=== PATIENT | female | born 1965 | race Caucasian/White ===

== ENCOUNTER 2016-08-29 11:48 | Inpatient (IN) | payer OTHER ==
[~2016-08-29] VITALS: Ht 167.6 cm; Wt 85.0 kg
[~2016-08-29 11:48] MED LIST: CLCC1250 PO; LCTX PO; MCRK20 PO; POTTAB2 PO; VANC5CAP PO; ZLF/100 PO
[2016-08-29] MEDS ORDERED: POTA-65 PO (12:04)
[2016-08-29] MEDS ORDERED: LEVO750T23 PO (12:04)
[2016-08-29] MEDS ORDERED: DOXY100C2 PO (12:04)
[2016-08-29] MEDS ORDERED: METOCLOPRAMIDE HCL INJ 5 MG/ML 2 ML VIAL IV STA (12:08)
[2016-08-29] MEDS ORDERED: KETOROLAC TROMETHAMINE 30 MG/ML VIAL IV STA (12:08)
[2016-08-29] MEDS ORDERED: SODIUM CHLORIDE 0.9% 1000ML 1,000 ML IV STA ×2 (12:08→13:27)
--- NOTE | 2016-08-29 12:11 | EMERGENCY ROOM VISIT NOTE ---
History Report prepared by Puneet: Jessica Murray Under the Supervision of: Dr. Miguel A Remy M.D. First contact with patient: 12:01 Chief Complaint: ILLNESS Stated Complaint: N/V/D, WEAKNESS, History of Present Illness The patient is a 51 year old female who presents to the Emergency Room with complaints of a persistent illness that began several days ago. She currently rates her discomfort as an 8/10 in severity. The patient states that she has been feeling lightheaded and weak. She states that on her way up to the emergency department today she developed chest pain and face tingling. The patient additionally associates nausea, vomiting, and diarrhea with her symptoms today. She states that she was recently started on Doxycycline for pneumonia. The patient states that her diarrhea started after starting the Doxycycline, and states that she has a history of C-diff. She denies any abdominal pain today. Source of History: patient Onset: several days ago Position: other (global) Symptom Intensity: 8/10 Quality: other (illness) Timing: other (persistent) Associated Symptoms: + chest pain, + diarrhea, + nausea, + vomiting, + weakness Note: Associated Symptoms: lightheadedness, face tingling Review of Systems See HPI for pertinent positives & negatives. A total of 10 systems reviewed and were otherwise negative. Past Medical & Surgical Medical Problems: (1) Anxiety (2) Pancreatitis, acute (3) Prolapse of intestine (4) SVT (supraventricular tachycardia) Surgical Problems: (1) H/O: hysterectomy Family History Cancer Diabetes mellitus Hypertension Kidney stones Social History Smoking Status: Never Smoker Alcohol Use: occasionally Drug Use: none Marital Status: Housing Status: lives with family Occupation Status: employed Current/Historical Medications Scheduled Doxycycline Hyclate (Vibramycin), 100 MG PO BID Levofloxacin (Levaquin), 750 MG PO DAILY Potassium Chloride (Potassium Chloride ER), 20 MEQ PO BID Sertraline HCl (Sertraline HCl), 100 MG PO DAILY Allergies Coded Allergies: No Known Allergies (Verified , 08/29/16) Physical Exam Vital Signs Date Time Temp Pulse Resp B/P Pulse Ox O2 Delivery O2 Flow Rate FiO2 08/29/16 13:49 116 18 151/99 96 Room Air 08/29/16 11:51 36.4 135 22 156/118 98 Room Air Physical Exam GENERAL: Patient is a healthy-appearing well-nourished HEAD: Normocephalic atraumatic EYES: Ocular movements intact pupils equal and react to light OROPHARYNX mucous membranes are moist no exudates present no erythema or edema present NECK: Supple no nuchal rigidity CHEST: Good equal expansion LUNGS: Clear and equal to auscultation CARDIAC: Normal S1 and S2 ABDOMEN: Soft nontender no guarding BACK: No CVA tenderness EXTREMITIES: No pain upon palpation normal muscle strength in all groups no clubbing cyanosis or edema NEURO: Patient is following commands is answering questions appropriately. Alert and oriented x3 Cranial Nerves 2-12 grossly intact Medical Decision & Procedures ER Provider Diagnostic Interpretation: ABDOMEN AND PELVIS CT WITH IV CONTRAST CT DOSE: 1570.39 mGy.cm HISTORY: Pancreatitis Pt c/o pancreatitis TECHNIQUE: Multiaxial CT images of the abdomen and pelvis were performed following the use of intravenous contrast. COMPARISON STUDY: 01/30/2016 FINDINGS: Lung bases are clear. Diffuse fatty infiltration of liver. Diffuse edematous change and infiltrative change of the peripancreatic fascial planes. Fluid surrounding components of the stomach. Moderate infiltrative change of the mesentery. Small to moderate amount of free fluid within the paracolic gutter regions. Significant free fluid within the soft tissue pelvic region and cul-de-sac. Bladder is midline. Bowel pattern overall is nonobstructive. Findings of a surgical anastomosis of the sigmoid are again noted. All major vessels appear patent at this time. Kidneys enhance uniformly. No evidence for drainable abscess collection or pseudocyst at the current time. IMPRESSION: 1. Diffuse pancreatitis with considerable peripancreatic infiltrative and free fluid change. 2. Fluid is identified in the perigastric region, paracolic gutter and flank regions, as well as significant fluid within the soft tissue pelvis. 3. Fatty infiltration of liver unchanged. Electronically signed by: Carl Estrella M.D. 08/29/2016 2:[address]AST CT DOSE: HISTORY: Altered mental status. TECHNIQUE: Multiaxial CT images of the head were performed without the use of intravenous contrast. Automated exposure control was utilized for this study. Comparison: None. Findings: The paranasal sinuses and mastoid air cells are clear. The calvarium and skull base are intact. The ventricles and sulci are within normal limits. There is no mass, hematoma, midline shift, or acute infarct. Right posterior scalp swelling. Impression: No acute intracranial abnormality. Right posterior scalp injury. Electronically signed by: Clark Rodriguez M.D. 08/29/2016 2:29 PM CHEST AND ABDOMEN 2 VIEWS HISTORY: Generalized abdominal pain. COMPARISON: Chest 08/27/2016. Abdomen and pelvis CT 01/30/2016. FINDINGS: Suture material seen throughout the pelvis. Mild dilated gas-filled loops of small bowel within the midabdomen. There is also nondistended gas-filled colon. No pneumoperitoneum. No pneumatosis. The chest image of the study is mislabeled. No pneumothorax. No pleural effusions. The heart is normal in size. Questionable 1.4 cm nodular density within the right lower lung zone persists. IMPRESSION: 1. No acute process within the chest. 2. Questionable 1.4 cm nodular density within the right lung base is again noted. This area may be included on the same day abdomen and pelvis CT and should be evaluated at that time. If not, a follow-up nonemergent chest CT is recommended. 3. Mildly distended loops of small bowel within the midabdomen. There is also gas within the colon. Therefore, this favors an ileus. A partial small bowel obstruction could also have a similar appearance. Electronically signed by: Clark Rodriguez M.D. 08/29/2016 2:01 PM Laboratory Results Test 08/29/16 12:55 Direct Bilirubin 0.3 mg/dl (0-0.2) Total Creatine Kinase 157 U/L (26-192) Creatine Kinase MB 3.0 ng/ml (0.5-3.6) Creatine Kinase MB Ratio 1.9 (0-3.0) Troponin I < 0.015 ng/ml (0-0.045) Date/Time Source Procedure Growth Status 08/29/16 12:25 Stool C.difficile Toxin B Gene (PCR) - Final No C. difficile toxin B gene detected Complete Labs reviewed by ED physician. Medications Administered Medications (Trade) Dose Ordered Sig/Betty Route Start Time Stop Time Status Last Admin Dose Admin Sodium Chloride (Nss 1000ml) 1,000 ml @ 999 mls/hr Q1H1M STAT IV 08/29/16 12:08 08/29/16 13:08 DC 08/29/16 12:48 999 MLS/HR Ketorolac Tromethamine (Toradol Inj) 30 mg NOW STAT IV 08/29/16 12:08 08/29/16 12:11 DC 08/29/16 12:47 30 MG Metoclopramide HCl 10 mg 10 mg NOW STAT IV 08/29/16 12:08 08/29/16 12:11 DC 08/29/16 12:47 10 MG Sodium Chloride (Nss 1000ml) 1,000 ml @ 999 mls/hr Q1H1M STAT IV 08/29/16 13:27 08/29/16 14:27 DC 08/29/16 13:41 999 MLS/HR Ondansetron HCl (Zofran Inj) 4 mg NOW STAT IV 08/29/16 13:27 08/29/16 13:28 DC 08/29/16 13:40 4 MG Ondansetron HCl 4 mg 4 mg Q6H PRN IV 08/29/16 14:45 09/28/16 14:44 08/29/16 20:08 4 MG Lactated Ringer's (Lr 1000ml) 1,000 ml @ 125 mls/hr Q8H IV 08/29/16 14:43 08/30/16 08:40 DC 08/30/16 02:02 125 MLS/HR Hydromorphone HCl (Dilaudid Inj) 1 mg Q3H PRN IV 08/29/16 14:45 09/12/16 14:44 08/29/16 20:08 1 MG ECG Indication: nausea, vomiting, weakness Rate (beats per minute): 117 Rhythm: normal sinus Findings: no acute ischemic change, prolonged QT, no ectopy ED Course 1203: Past medical records reviewed. The patient was evaluated in room A10. A complete history and physical examination was performed. 1208: Ordered Reglan Inj 10 mg IV, Toradol Inj 30 mg IV, Sodium Chloride 1000 ml @ 999 mls/hr IV. Medical Decision Differential diagnosis: Etiologies such as appendicitis, diverticulitis, PUD, biliary pathology, UTI, pancreatitis, obstruction, mesenteric ischemia, aortic pathology, infections, inflammatory bowel disease, renal colic, as well as others were entertained. This is a 51-year-old female who presents emergency department complaining of epigastric pain. The patient has a history of pancreatitis. Her lipase was found 5000. She has as an elevation in her white blood count. The patient originally been sent for x-rays of her abdomen chest however when the lipase level came back she was sent for CAT scan of her abdomen. The patient's mother reports that the patient had been drinking alcohol at [place]. Based on these findings I felt that the patient should be admitted to the hospitalist service. She was given a GI cocktail, Pepcid, Carafate. Repeat examination revealed improvement patient's symptoms. Patient and family were in agreement with the treatment plan. Impression Primary Impression: Pancreatitis, acute Scribe Attestation The scribe's documentation has been prepared under my direction and personally reviewed by me in its entirety. I confirm that the note above accurately reflects all work, treatment, procedures, and medical decision making performed by me. Departure Information Dispostion Still a Patient Referrals Gerardo White M.D. (PCP) Patient Instructions A Signature Page, [facility]
[2016-08-29 12:28] LABS: BASO % 0.1 %; BASO ABS # 0.01 K/uL (0-0.2); COMPLETE YES; EOS % 0.1 %; HEMATOCRIT 44.2 % (37-47); IG% 0.2 %; LYMPH % 12.5 %; LYMPH ABS # 1.54 K/uL (1.2-3.4); MEAN CELL VOLUME 95.1 fL (80-100); MEAN CORPUSCULAR HEMOGLOBIN 35.5 pg (25-34); MEAN CORPUSCULAR HGB CONC 37.3 g/dl (32-36); MEAN PLATELET VOLUME 11.3 fL (7.4-10.4); MONO % 6.7 %; NEUT % 80.4 %; PLATELET COUNT 122 K/uL (130-400); RED BLOOD COUNT 4.65 M/uL (4.2-5.4)
[2016-08-29 13:25] LABS: ALT/SGPT 52 U/L (12-78); BLOOD UREA NITROGEN 15 mg/dl (7-18); BUN/CREATININE RATIO 14.9 (10-20); CALCIUM 8.4 mg/dl (8.5-10.1); CARBON DIOXIDE 30 mmol/L (21-32); CHLORIDE 91 mmol/L (98-107); GLUCOSE 120 mg/dl (70-99); POTASSIUM 3.5 mmol/L (3.5-5.1); SODIUM 130 mmol/L (136-145)
[2016-08-29] MEDS ORDERED: ONDANSETRON INJ 2 MG/ML 2 ML VIAL IV STA (13:27)
[2016-08-29 13:30] LABS: ALKALINE PHOSPHATASE 103 U/L (45-117); AST/SGOT 84 U/L (15-37); CKMB/CK RATIO 1.9 (0-3.0)
[2016-08-29] MEDS ORDERED: OPTIRAY 320 IV PRN (14:00)
--- NOTE | 2016-08-29 14:03 | DIAGNOSTIC IMAGING REPORT ---
CHEST AND ABDOMEN 2 VIEWS HISTORY: Generalized abdominal pain. COMPARISON: Chest 08/27/2016. Abdomen and pelvis CT 01/30/2016. FINDINGS: Suture material seen throughout the pelvis. Mild dilated gas-filled loops of small bowel within the midabdomen. There is also nondistended gas-filled colon. No pneumoperitoneum. No pneumatosis. The chest image of the study is mislabeled. No pneumothorax. No pleural effusions. The heart is normal in size. Questionable 1.4 cm nodular density within the right lower lung zone persists. IMPRESSION: 1. No acute process within the chest. 2. Questionable 1.4 cm nodular density within the right lung base is again noted. This area may be included on the same day abdomen and pelvis CT and should be evaluated at that time. If not, a follow-up nonemergent chest CT is recommended. 3. Mildly distended loops of small bowel within the midabdomen. There is also gas within the colon. Therefore, this favors an ileus. A partial small bowel obstruction could also have a similar appearance. Electronically signed by: Clark Rodriguez M.D. 08/29/2016 2:01 PM
--- NOTE | 2016-08-29 14:30 | DIAGNOSTIC IMAGING REPORT ---
HEAD CT NONCONTRAST CT DOSE: HISTORY: Altered mental status. TECHNIQUE: Multiaxial CT images of the head were performed without the use of intravenous contrast. Automated exposure control was utilized for this study. Comparison: None. Findings: The paranasal sinuses and mastoid air cells are clear. The calvarium and skull base are intact. The ventricles and sulci are within normal limits. There is no mass, hematoma, midline shift, or acute infarct. Right posterior scalp swelling. Impression: No acute intracranial abnormality. Right posterior scalp injury. Electronically signed by: Clark Rodriguez M.D. 08/29/2016 2:29 PM
--- NOTE | 2016-08-29 14:30 | DIAGNOSTIC IMAGING REPORT ---
ABDOMEN AND PELVIS CT WITH IV CONTRAST CT DOSE: 1570.39 mGy.cm HISTORY: Pancreatitis Pt c/o pancreatitis TECHNIQUE: Multiaxial CT images of the abdomen and pelvis were performed following the use of intravenous contrast. COMPARISON STUDY: 01/30/2016 FINDINGS: Lung bases are clear. Diffuse fatty infiltration of liver. Diffuse edematous change and infiltrative change of the peripancreatic fascial planes. Fluid surrounding components of the stomach. Moderate infiltrative change of the mesentery. Small to moderate amount of free fluid within the paracolic gutter regions. Significant free fluid within the soft tissue pelvic region and cul-de-sac. Bladder is midline. Bowel pattern overall is nonobstructive. Findings of a surgical anastomosis of the sigmoid are again noted. All major vessels appear patent at this time. Kidneys enhance uniformly. No evidence for drainable abscess collection or pseudocyst at the current time. IMPRESSION: 1. Diffuse pancreatitis with considerable peripancreatic infiltrative and free fluid change. 2. Fluid is identified in the perigastric region, paracolic gutter and flank regions, as well as significant fluid within the soft tissue pelvis. 3. Fatty infiltration of liver unchanged. Electronically signed by: Carl Estrella M.D. 08/29/2016 2:28 PM
[2016-08-29] MEDS ORDERED: HYDROmorphone INJ 1 MG/ML SYR IV PRN ×3 (14:45)
[2016-08-29] MEDS ORDERED: PROMETHAZINE HCL INJ 25 MG in SODIUM CHLORIDE 0.9% 50ML 50 ML IV PRN (14:45)
[2016-08-29] MEDS ORDERED: HydrALAZINE HCL 20 MG/ML VIAL IV PRN (15:15)
[2016-08-29] MEDS ORDERED: HYDROmorphone INJ 0.5 MG/0.5 ML SYR ONE (15:56)
--- NOTE | 2016-08-29 16:13 | HISTORY & PHYSICAL EXAMINATION ---
DATE OF ADMISSION: 08/29/2016 NOTICE TO RECEIVING DEMOCRAT/AGENCY This information is strictly Confidential and protected under [place] law. [place] law prohibits you from making any further disclosure of this information unless further disclosure is expressly permitted by the written consent of the person to whom it pertains or is authorized by law. A general authorization for the release of medical or other information is not sufficient for this purpose. Hospital accepts no responsibility if the information is made available to any other person, INCLUDING THE PATIENT. CHIEF COMPLAINT: Abdominal pain, nausea, vomiting, diarrhea. ADMITTING DIAGNOSIS: Pancreatitis. HISTORY OF PRESENT ILLNESS: Ms. Ramirez is a 51-year-old female who has a history of having had pancreatitis back in December of 2015. She was discharged and then returned shortly thereafter with C. diff. She was treated with oral vancomycin and probiotics. The patient's initial pancreatitis episode was attributed to alcohol abuse. The patient was recently seen her primary care doctor and given doxycycline. She says 1 day after initiating doxycycline therapy, she began having nausea, vomiting, diarrhea, abdominal pain. She was given the doxycycline for pulmonary complaints. The patient tried to take yogurt at home to help with her diarrhea, but none of this resolved her symptoms. Subsequently, she presented to the ER as she said her diarrhea reminded of her C. diff. In the Emergency Department, they were unable to obtain a stool culture; however, she was found to have a lipase of [address] which showed inflammation around the pancreatic head. The patient also had a fall prior to coming in where she struck the back of her head. There is no laceration. Her glasses were broken at that time. PAST MEDICAL HISTORY: Anxiety, SVT, hysterectomy. MEDICATIONS: Zoloft 100 a day, potassium 20 b.i.d. and the doxycycline as mentioned. SOCIAL HISTORY: Socially does not smoke. She abstained from alcohol until and then she drank some alcohol on . FAMILY HISTORY: For cancer, diabetes, hypertension and kidney stones. REVIEW OF SYSTEMS: Ten systems were reviewed and are negative. The diarrhea is at least 6 bowel movements today. It is liquidy, brown, foul smelling. She has had no urinary symptoms of dysuria, hematuria or frequency. Her vomitus was clear mucus material, no bile. No coffee grounds. Ten systems were reviewed and otherwise negative. PHYSICAL EXAMINATION: VITAL SIGNS: 36.4, pulse 116, respiratory rate 18, BP 151/99, O2 sat 96 on room air. HEENT: PERRL, EOMI. She has a 6 cm scalp hematoma to the right of her occiput near the crown of her head. Her sclerae are anicteric. Her oropharynx is dry. NECK: Without lymphadenopathy. Trachea is midline. HEART: Tachycardic, regular, no murmurs. LUNGS: Clear without wheezes or crackles. Good air movement and no focal air loss. No wheezes. ABDOMEN: Normoactive bowel sounds. She has got tenderness to the right upper, left upper and epigastric area. Lower quadrants are unremarkable. EXTREMITIES: Without cyanosis, clubbing or edema. NEUROLOGICALLY: Awake, alert and appropriate. Cranial nerves II-XII are intact. Equal symmetrical strength and sensation in upper and lower extremities. LABORATORY DATA: White count 12.3, H\T\H is 16 and 44, platelet count 122. BUN and creatinine are 15 and 1.0. She is hyponatremic with a sodium of 130. Her lipase is 4222. LFTs otherwise though show a normal total bilirubin, but direct bilirubin is slightly elevated at 0.3, normal being 0.2. Her AST is elevated at 84, ALT 52 and normal, alkaline phosphatase normal. Imaging includes a CT head unremarkable except for scalp injury. CT abdomen and pelvis showing fat marbling of her liver and inflammation around the pancreatic head. There is also a discussion of a 1.4 cm nodular density in the right lung base. Recommend followup. ASSESSMENT: 51-year-old female with pancreatitis, recurrent. Possible antibiotic influenced, alcohol influenced, or recurrence from previous episode. PLAN: For the pancreatitis she will be kept n.p.o., lactated Ringer's, pain and antiemetics, ice chips and meds only. For the possibility of C. diff with her diarrhea, we will check cultures at this time. For hyponatremia will evaluate this tomorrow and if need be, we will check a urine sodium for SIADH random. For depression and anxiety, Zoloft will be maintained with a small sip. For previous uti shows ecoli, will use cipro based on outpt sensitivities DVT prevention is Lovenox The patient is a full code. MTDD
[2016-08-29] MEDS: LACTATED RINGER'S 1000ML 1,000 ML IV SCH ×2 (16:41→20:00)
[2016-08-29 16:43] VITALS: BP 120/83; PULSE 108; TEMP 36.9; O2SAT 96
[2016-08-29 17:00] VITALS: Ht 167.6 cm; Wt 85.0 kg
[2016-08-29 17:13] LABS: INR 1.2 (0.9-1.1); PROTHROMBIN TIME (PATIENT) 12.5 SECONDS (9.0-12.0)
[2016-08-29] MEDS: CIPROFLOXACIN / D5W 400 MG in PREMIXED IN D5W 200 ML IV SCH (20:00)
[2016-08-29] MEDS: ENOXAPARIN 40 MG/0.4 ML SYR SQ SCH (20:00)
[2016-08-29] MEDS: ONDANSETRON INJ 2 MG/ML 2 ML VIAL IV PRN (20:08)
[2016-08-29 23:32] VITALS: BP 120/84; PULSE 101; TEMP 36.4; O2SAT 95
[2016-08-30] VITALS: O2SAT 98
[2016-08-30] MEDS: LACTATED RINGER'S 1000ML 1,000 ML IV SCH (02:02)
[2016-08-30 06:26] LABS: MEAN CELL VOLUME 96.8 fL (80-100); MEAN CORPUSCULAR HEMOGLOBIN 34.5 pg (25-34); MEAN CORPUSCULAR HGB CONC 35.6 g/dl (32-36); RED BLOOD COUNT 4.03 M/uL (4.2-5.4); WHITE BLOOD COUNT 10.57 K/uL (4.8-10.8)
[2016-08-30 06:56] LABS: MEAN PLATELET VOLUME 10.8 fL (7.4-10.4); PLATELET COUNT 98 K/uL (130-400)
[2016-08-30 06:57] LABS: BASO % 0.1 %; BASO ABS # 0.01 K/uL (0-0.2); COMPLETE YES; EOS % 0.3 %; IG% 0.2 %; LYMPH % 12.7 %; LYMPH ABS # 1.34 K/uL (1.2-3.4); MONO % 6.8 %; NEUT % 79.9 %; PLT ESTIMATE DECREASED
[2016-08-30 07:10] LABS: ALB/GLOB RATIO 0.9 (0.9-2); BUN/CREATININE RATIO 16.6 (10-20); CALCIUM 7.7 mg/dl (8.5-10.1); CREATININE 0.58 mg/dl (0.60-1.20); POTASSIUM 2.8 mmol/L (3.5-5.1)
[2016-08-30] MEDS: CIPROFLOXACIN / D5W 400 MG in PREMIXED IN D5W 200 ML IV SCH ×2 (07:37→21:26)
[2016-08-30 08:22] VITALS: BP 133/92; PULSE 112; TEMP 37; O2SAT 96
[2016-08-30] MEDS ORDERED: SERTRALINE HCL 100 MG TAB PO SCH (09:00)
[2016-08-30] MEDS: POTASSIUM CHLORIDE INJ 40 MEQ in SODIUM CHLORIDE 0.9% 1000ML 1,000 ML IV SCH ×2 (10:57→18:09)
--- NOTE | 2016-08-30 11:34 | Progress Note ---
Subjective Date of Service: Aug 30, 2016. Subjective Pt evaluation today including: conversation w/ patient, chart review, review of studies, conversation w/ market consultant Pain: improved. PO Intake: NPO Voiding: no voiding problems seen and examined awake and alert afebrile, no CP or SOB,no Nausea or Vomiting, no more abd pain and but has mild bloating but better than before, NPO except gets sips of water, on IVF , no diarrhea or urinary Sx Seen w the nurse emotional Problem List Medical Problems: (1) Abdominal pain Status: Acute (2) Pancreatitis Status: Acute Review of Systems Constitutional: No chills, No fatigue, No fever, No problem reported, No see HPI, No sweats, No weakness, No weight loss Eyes: No diplopia, No discharge, No eye pain, No problem reported, No redness, No see HPI, No worsening of vision ENT: No dental problems, No hearing loss, No nasal symptoms, No problem reported, No see HPI, No sore throat, No tinnitus, No trouble swallowing, No unusual epistaxis Respiratory: No cough, No dyspnea at rest, No dyspnea on exertion, No hemoptysis, No problem reported, No see HPI, No shortness of breath, No sputum, No wheezing Cardiac: No PND, No chest pain, No claudication, No edema, No orthopnea, No palpitations, No problem reported, No see HPI Abdomen: + problem reported (mild blaoting) Musculoskeletal: No calf pain, No joint pain, No muscle pain, No problem reported, No see HPI, No swelling Female : No abnormal vaginal bleeding, No dysuria, No hematuria, No incontinence, No problem reported, No see HPI, No urinary frequency, No vaginal discharge Neurologic: No balance problems, No memory loss, No numbness/tingling, No paralysis, No problem reported, No see HPI, No vertigo, No weakness Endo: No excessive thirst, No excessive urination, No fatigue, No problem reported, No see HPI Medications Current Inpatient Medications Medications (Trade) Dose Ordered Sig/Betty Route Start Time Stop Time Status Last Admin Dose Admin Ioversol (Optiray 320) 125 ml UD PRN IV 08/29/16 14:00 09/02/16 13:59 Sertraline HCl (Zoloft Tab) 100 mg DAILY PO 08/30/16 09:00 09/29/16 08:59 08/30/16 07:37 100 MG Enoxaparin Sodium (Lovenox Inj) 40 mg QPM SQ 08/29/16 21:00 09/28/16 20:59 08/29/16 20:00 40 MG Ondansetron HCl 4 mg 4 mg Q6H PRN IV 08/29/16 14:45 09/28/16 14:44 08/29/16 20:08 4 MG Promethazine HCl/ Sodium Chloride (Phenergan Inj/ Nss 50ml) 51 ml @ 200 mls/hr Q6H PRN IV 08/29/16 14:45 09/28/16 14:44 Hydromorphone HCl (Dilaudid Inj) 0.25 mg Q3H PRN IV 08/29/16 14:45 09/12/16 14:44 Hydromorphone HCl (Dilaudid Inj) 0.5 mg Q3H PRN IV 08/29/16 14:45 09/12/16 14:44 Hydromorphone HCl (Dilaudid Inj) 1 mg Q3H PRN IV 08/29/16 14:45 09/12/16 14:44 08/29/16 20:08 1 MG Hydralazine HCl 10 mg 10 mg Q4H PRN IV 08/29/16 15:15 09/28/16 15:14 Ciprofloxacin/ Dextrose 400 mg/ Prmx 200 ml @ 100 mls/hr Q12 IV 08/29/16 21:00 09/08/16 20:59 08/30/16 07:37 100 MLS/HR Potassium Chloride/Sodium Chloride (KCl Inj/Nss 1000ml) 1,020 ml @ 125 mls/hr Q8H10M IV 08/30/16 09:15 09/29/16 08:44 08/30/16 10:57 125 MLS/HR Objective Vital Signs Date Time Temp Pulse Resp B/P Pulse Ox O2 Delivery O2 Flow Rate FiO2 08/30/16 08:22 37.0 112 20 133/92 96 Room Air 08/30/16 07:27 Room Air 08/30/16 00:00 98 Room Air 08/29/16 23:32 36.4 101 16 120/84 95 Room Air 08/29/16 20:00 Room Air 08/29/16 17:00 Room Air 08/29/16 16:43 36.9 108 18 120/83 96 Room Air 08/29/16 15:59 102 20 143/93 98 Room Air 08/29/16 13:49 116 18 151/99 96 Room Air 08/29/16 11:51 36.4 135 22 156/118 98 Room Air Physical Exam General Appearance: no apparent distress, + obese Eyes: normal inspection ENT: normal ENT inspection, hearing grossly normal Neck: supple, no JVD, no carotid bruits, trachea midline Respiratory/Chest: chest non-tender, lungs clear, normal breath sounds, no respiratory distress, no accessory muscle use Cardiovascular: regular rate, rhythm, no edema, no gallop, no JVD, no murmur Abdomen: normal bowel sounds, non tender, soft, no organomegaly Extremities: normal range of motion, non-tender, normal inspection, no pedal edema Neurologic/Psychiatric: director automotive II-XII nml as tested, no motor/sensory deficits, alert, normal mood/affect, oriented x 3 Skin: normal color, warm/dry Laboratory Results Last 24 Hours Test 08/29/16 12:08 08/29/16 12:13 08/29/16 12:55 08/29/16 16:57 Creatine Kinase MB Ratio 1.9 White Blood Count 12.30 K/uL Red Blood Count 4.65 M/uL Hemoglobin 16.5 g/dL Hematocrit 44.2 % Mean Corpuscular Volume 95.1 fL Mean Corpuscular Hemoglobin 35.5 pg Mean Corpuscular Hemoglobin Concent 37.3 g/dl Platelet Count 122 K/uL Mean Platelet Volume 11.3 fL Neutrophils (%) (Auto) 80.4 % Lymphocytes (%) (Auto) 12.5 % Monocytes (%) (Auto) 6.7 % Eosinophils (%) (Auto) 0.1 % Basophils (%) (Auto) 0.1 % Neutrophils # (Auto) 9.89 K/uL Lymphocytes # (Auto) 1.54 K/uL Monocytes # (Auto) 0.82 K/uL Eosinophils # (Auto) 0.01 K/uL Basophils # (Auto) 0.01 K/uL RDW Standard Deviation 45.6 fL RDW Coefficient of Variation 13.3 % Immature Granulocyte % (Auto) 0.2 % Immature Granulocyte # (Auto) 0.03 K/uL Sodium Level 130 mmol/L Potassium Level 3.5 mmol/L Chloride Level 91 mmol/L Carbon Dioxide Level 30 mmol/L Anion Gap 9.0 mmol/L Blood Urea Nitrogen 15 mg/dl Creatinine 1.00 mg/dl Est Creatinine Clear Calc Drug Dose 74.7 ml/min Estimated GFR () 76.6 Estimated GFR (Non- 66.1 BUN/Creatinine Ratio 14.9 Random Glucose 120 mg/dl Calcium Level 8.4 mg/dl Total Bilirubin 0.9 mg/dl Direct Bilirubin 0.3 mg/dl Aspartate Amino Transf (AST/SGOT) 84 U/L Alanine Aminotransferase (ALT/SGPT) 52 U/L Alkaline Phosphatase 103 U/L Total Creatine Kinase 157 U/L Creatine Kinase MB 3.0 ng/ml Troponin I < 0.015 ng/ml Total Protein 6.5 gm/dl Albumin 3.1 gm/dl Lipase 4222 U/L Prothrombin Time 12.5 SECONDS Prothromb Time International Ratio 1.2 Activated Partial Thromboplast Time 26.1 SECONDS Partial Thromboplastin Ratio 1.0 Test 08/30/16 06:10 White Blood Count 10.57 K/uL Red Blood Count 4.03 M/uL Hemoglobin 13.9 g/dL Hematocrit 39.0 % Mean Corpuscular Volume 96.8 fL Mean Corpuscular Hemoglobin 34.5 pg Mean Corpuscular Hemoglobin Concent 35.6 g/dl Platelet Count 98 K/uL Mean Platelet Volume 10.8 fL Neutrophils (%) (Auto) 79.9 % Lymphocytes (%) (Auto) 12.7 % Monocytes (%) (Auto) 6.8 % Eosinophils (%) (Auto) 0.3 % Basophils (%) (Auto) 0.1 % Neutrophils # (Auto) 8.45 K/uL Lymphocytes # (Auto) 1.34 K/uL Monocytes # (Auto) 0.72 K/uL Eosinophils # (Auto) 0.03 K/uL Basophils # (Auto) 0.01 K/uL RDW Standard Deviation 47.7 fL RDW Coefficient of Variation 13.6 % Immature Granulocyte % (Auto) 0.2 % Immature Granulocyte # (Auto) 0.02 K/uL Platelet Estimate DECREASED Sodium Level 134 mmol/L Potassium Level 2.8 mmol/L Chloride Level 95 mmol/L Carbon Dioxide Level 26 mmol/L Anion Gap 13.0 mmol/L Blood Urea Nitrogen 10 mg/dl Creatinine 0.58 mg/dl Est Creatinine Clear Calc Drug Dose 128.8 ml/min Estimated GFR () 125.4 Estimated GFR (Non- 108.2 BUN/Creatinine Ratio 16.6 Random Glucose 75 mg/dl Calcium Level 7.7 mg/dl Total Bilirubin 0.8 mg/dl Aspartate Amino Transf (AST/SGOT) 64 U/L Alanine Aminotransferase (ALT/SGPT) 40 U/L Alkaline Phosphatase 90 U/L Total Protein 6.3 gm/dl Albumin 2.9 gm/dl Globulin 3.4 gm/dl Albumin/Globulin Ratio 0.9 Lipase 2046 U/L Assessment and Plan Acute Pancreatitis poss Alcohol related , a binge drinking, not drinking much , . drunk some day before and nothing since then and nothing prior to that since December. start Liquid idet pain meds IVF advised not going back to alcohol recheck labs Hypokalemia Change fluid to NS w K and recheck Diarrhea , resolved poss sec to pancreatitis, C diff ruled out add Probiotics UTI, OP urine culture grew E coli on 08/27 IV Cipro Hyponatremia, improving IVF H/O Pancreatitis in the past sec to Alcohol Alcohol abuse, none since december but had Binge drink around , monitor for alc withdrawal but she had none for 5-6 days H/O C Diff Mood issues, decline psych consult and she wants to talk to SS, regarding OP work up plan as above get SS OMAIRA arriaga and the nurse poss DC in 1-2 days
[2016-08-30] MEDS: SACCHAROMYCES BOUL (FLORASTOR) 250 MG CAP PO SCH (12:36)
[2016-08-30] MEDS ORDERED: GABAPENTIN 800 MG TAB PO SCH (14:00)
[2016-08-30] MEDS ORDERED: THIAMINE HCL 100 MG TAB PO ONE (14:05)
--- NOTE | 2016-08-30 14:07 | Psych Management Progress Note ---
Psychiatry Miscellaneous Date of Service: Aug 30, 2016. I personally participated in the medical decision making outlined in consultation by KESHA Donato. Patient minimizing ETOH use upon admission and will need withdrawal protocol. Currently amenable to rehab recs.
[2016-08-30] MEDS ORDERED: GABAPENTIN 800MG LOADING DOSE PO SCH (14:15)
[2016-08-30 15:30] VITALS: BP 131/91; PULSE 63; TEMP 36.9; O2SAT 95
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
[2016-08-30] MEDS: GABAPENTIN 400MG Q6H DOSE PO SCH (20:00)
[2016-08-30] MEDS: ENOXAPARIN 40 MG/0.4 ML SYR SQ SCH (21:26)
[2016-08-31 00:18] VITALS: BP 149/92; PULSE 103; TEMP 36.8; O2SAT 96
[2016-08-31] MEDS: POTASSIUM CHLORIDE INJ 40 MEQ in SODIUM CHLORIDE 0.9% 1000ML 1,000 ML IV SCH ×4 (02:59→23:27)
[2016-08-31] MEDS: ONDANSETRON INJ 2 MG/ML 2 ML VIAL IV PRN (03:03)
[2016-08-31 03:34] LABS: URINE APPEARANCE CLEAR (CLEAR); URINE BILIRUBIN NEG (NEG); URINE COLOR YELLOW; URINE EPITHELIAL CELL AUTO 20-30 /lpf (0-5); URINE NITRITE NEG (NEG); URINE SPECIFIC GRAVITY 1.005 (1.000-1.030); UROBILINOGEN NEG (NEG); ZZUR CULT IF INDIC CLEAN CATCH NO
[2016-08-31 03:40] LABS: MANUAL MICROSCOPIC REQUIRED? NO; REVIEW REQ? NO
[2016-08-31] MEDS: GABAPENTIN 400MG Q6H DOSE PO SCH (05:33)
[2016-08-31 07:40] VITALS: BP 141/88; PULSE 93; TEMP 36.6; O2SAT 91
[2016-08-31 08:00] VITALS: O2SAT 92
[2016-08-31] MEDS: SERTRALINE HCL 50 MG TAB PO SCH (08:12)
[2016-08-31] MEDS: THIAMINE HCL 100 MG TAB PO SCH (08:12)
[2016-08-31] MEDS: SACCHAROMYCES BOUL (FLORASTOR) 250 MG CAP PO SCH (08:13)
[2016-08-31 08:27] LABS: BASO % 0.1 %; BASO ABS # 0.01 K/uL (0-0.2); COMPLETE YES; EOS % 0.2 %; HEMATOCRIT 33.1 % (37-47); IG% 0.1 %; LYMPH ABS # 1.19 K/uL (1.2-3.4); MEAN CELL VOLUME 97.4 fL (80-100); MEAN CORPUSCULAR HEMOGLOBIN 33.8 pg (25-34); MEAN CORPUSCULAR HGB CONC 34.7 g/dl (32-36); MONO % 9.4 %; NEUT % 77.2 %; PLATELET COUNT 101 K/uL (130-400); WHITE BLOOD COUNT 9.15 K/uL (4.8-10.8)
[2016-08-31] MEDS: CIPROFLOXACIN / D5W 400 MG in PREMIXED IN D5W 200 ML IV SCH ×2 (08:45→12:48)
[2016-08-31 09:06] LABS: BUN/CREATININE RATIO 13.3 (10-20); CALCIUM 7.4 mg/dl (8.5-10.1); CREATININE 0.54 mg/dl (0.60-1.20); MAGNESIUM 1.3 mg/dl (1.8-2.4); POTASSIUM 2.9 mmol/L (3.5-5.1)
[2016-08-31 09:09] LABS: ALB/GLOB RATIO 0.8 (0.9-2); PHOSPHORUS 1.8 mg/dl (2.5-4.9)
[2016-08-31] MEDS: MAGNESIUM SULFATE 1GM / D5W 1 GM in PREMIXED IN D5W 100 ML IV SCH ×2 (11:21→12:50)
[2016-08-31] MEDS: POT PHOSPHATE MONOBASIC W/ SOD TAB PO SCH ×3 (13:38→20:32)
[2016-08-31] MEDS: GABAPENTIN 400MG Q8H DOSE PO SCH ×2 (13:38→20:31)
--- NOTE | 2016-08-31 14:53 | Progress Note ---
Subjective Date of Service: Aug 31, 2016. 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 still has diarrhea but less than before Problem List Medical Problems: (1) Abdominal pain Status: Acute (2) Pancreatitis Status: Acute Review of Systems Constitutional: No chills, No fatigue, No fever, No problem reported, No see HPI, No sweats, No weakness, No weight loss Eyes: No diplopia, No discharge, No eye pain, No problem reported, No redness, No see HPI, No worsening of vision ENT: No dental problems, No hearing loss, No nasal symptoms, No problem reported, No see HPI, No sore throat, No tinnitus, No trouble swallowing, No unusual epistaxis Respiratory: No cough, No dyspnea at rest, No dyspnea on exertion, No hemoptysis, No problem reported, No see HPI, No shortness of breath, No sputum, No wheezing Cardiac: No PND, No chest pain, No claudication, No edema, No orthopnea, No palpitations, No problem reported, No see HPI Abdomen: No GI bleeding, No constipation, No diarrhea, No nausea, No pain, No problem reported, No see HPI, No vomiting Musculoskeletal: No calf pain, No joint pain, No muscle pain, No problem reported, No see HPI, No swelling Female : No abnormal vaginal bleeding, No dysuria, No hematuria, No incontinence, No problem reported, No see HPI, No urinary frequency, No vaginal discharge Neurologic: No balance problems, No memory loss, No numbness/tingling, No paralysis, No problem reported, No see HPI, No vertigo, No weakness Psychiatric: No anhedonism, No anxiety, No depression symptoms, No insomnia, No problem reported, No see HPI, No substance abuse Heme: No abnormal bleeding/bruising, No clotting problems, No night sweats, No problem reported, No see HPI, No swollen lymph nodes Objective Vital Signs Date Time Temp Pulse Resp B/P Pulse Ox O2 Delivery O2 Flow Rate FiO2 08/31/16 08:00 92 Room Air 08/31/16 07:40 36.6 93 18 141/88 91 08/31/16 00:18 36.8 103 18 149/92 96 Room Air 08/31/16 00:05 Room Air 08/30/16 16:00 Room Air 08/30/16 15:30 36.9 63 16 131/91 95 Room Air Physical Exam General Appearance: no apparent distress, + obese Eyes: normal inspection ENT: normal ENT inspection, hearing grossly normal, pharynx normal Neck: supple, no JVD, no carotid bruits, trachea midline Respiratory/Chest: chest non-tender, lungs clear, normal breath sounds, no respiratory distress, no accessory muscle use Cardiovascular: regular rate, rhythm, no edema, no gallop, no JVD, no murmur Abdomen: normal bowel sounds, non tender, soft, no organomegaly, no pulsatile mass Extremities: normal range of motion, non-tender, normal inspection, no pedal edema, normal capillary refill Neurologic/Psychiatric: no motor/sensory deficits, alert, normal mood/affect, oriented x 3 Skin: normal color Laboratory Results Last 24 Hours Test 08/30/16 17:08 08/31/16 03:05 08/31/16 07:23 Potassium Level 3.0 mmol/L 2.9 mmol/L Urine Color YELLOW Urine Appearance CLEAR Urine pH 7.0 Urine Specific [place] 1.005 Urine Protein NEG Urine Glucose (UA) NEG Urine Ketones NEG Urine Occult Blood NEG Urine Nitrite NEG Urine Bilirubin NEG Urine Urobilinogen NEG Urine Leukocyte Esterase TRACE Urine WBC (Auto) 1-5 /hpf Urine RBC (Auto) 0-4 /hpf Urine Hyaline Casts (Auto) 0 /lpf Urine Epithelial Cells (Auto) 20-30 /lpf Urine Bacteria (Auto) NEG White Blood Count 9.15 K/uL Red Blood Count 3.40 M/uL Hemoglobin 11.5 g/dL Hematocrit 33.1 % Mean Corpuscular Volume 97.4 fL Mean Corpuscular Hemoglobin 33.8 pg Mean Corpuscular Hemoglobin Concent 34.7 g/dl Platelet Count 101 K/uL Mean Platelet Volume 11.0 fL Neutrophils (%) (Auto) 77.2 % Lymphocytes (%) (Auto) 13.0 % Monocytes (%) (Auto) 9.4 % Eosinophils (%) (Auto) 0.2 % Basophils (%) (Auto) 0.1 % Neutrophils # (Auto) 7.06 K/uL Lymphocytes # (Auto) 1.19 K/uL Monocytes # (Auto) 0.86 K/uL Eosinophils # (Auto) 0.02 K/uL Basophils # (Auto) 0.01 K/uL RDW Standard Deviation 47.9 fL RDW Coefficient of Variation 13.7 % Immature Granulocyte % (Auto) 0.1 % Immature Granulocyte # (Auto) 0.01 K/uL Sodium Level 134 mmol/L Chloride Level 99 mmol/L Carbon Dioxide Level 23 mmol/L Anion Gap 12.0 mmol/L Blood Urea Nitrogen 7 mg/dl Creatinine 0.54 mg/dl Est Creatinine Clear Calc Drug Dose 138.4 ml/min Estimated GFR () 128.4 Estimated GFR (Non- 110.8 BUN/Creatinine Ratio 13.3 Random Glucose 72 mg/dl Calcium Level 7.4 mg/dl Phosphorus Level 1.8 mg/dl Magnesium Level 1.3 mg/dl Total Bilirubin 0.7 mg/dl Aspartate Amino Transf (AST/SGOT) 58 U/L Alanine Aminotransferase (ALT/SGPT) 38 U/L Alkaline Phosphatase 88 U/L Total Protein 6.2 gm/dl Albumin 2.8 gm/dl Globulin 3.4 gm/dl Albumin/Globulin Ratio 0.8 Lipase 691 U/L Assessment and Plan Acute Pancreatitis poss Alcohol related , a binge drinking, not drinking much , . drunk some day before and nothing since then and nothing prior to that since December. advance diet to low cholesterol pain meds keep fluid w K for now advised not going back to alcohol recheck labs Alcohol abuse, none since december but had Binge drink around , monitor for alc withdrawal but she had none for 5-6 days alcohol withdrawal protocol psych input appreciated Mood disorder psych on board Zoloft increased Hypokalemia, hypomagnesia and hypophosphatemia replace lytes and recheck Diarrhea , resolved poss sec to pancreatitis, C diff ruled out add Probiotics UTI, OP urine culture grew E coli on 08/27 IV Cipro for now , once diarrhea resolved can be change to PO Hyponatremia, improving IVF H/O Pancreatitis in the past sec to Alcohol H/O C Diff Mood issues, decline psych consult and she wants to talk to SS, regarding OP work up plan as above SS OMAIRA pat and the nurse poss DC in 1-2 days
[2016-08-31 16:04] VITALS: BP 126/84; PULSE 87; TEMP 36.8; O2SAT 100
[2016-08-31] MEDS: ENOXAPARIN 40 MG/0.4 ML SYR SQ SCH (20:31)
[2016-08-31] MEDS: MAGNESIUM OXIDE 400 MG TAB PO SCH (20:31)
[2016-08-31 23:28] VITALS: BP 111/74; PULSE 97; TEMP 36.7; O2SAT 93
[2016-09-01] MEDS: GABAPENTIN 400MG Q8H DOSE PO SCH (06:02)
[2016-09-01] MEDS: SERTRALINE HCL 50 MG TAB PO SCH (07:23)
[2016-09-01] MEDS: MAGNESIUM OXIDE 400 MG TAB PO SCH ×2 (07:23→17:46)
[2016-09-01] MEDS: SACCHAROMYCES BOUL (FLORASTOR) 250 MG CAP PO SCH (07:23)
[2016-09-01] MEDS: THIAMINE HCL 100 MG TAB PO SCH (07:23)
[2016-09-01] MEDS: POT PHOSPHATE MONOBASIC W/ SOD TAB PO SCH ×2 (07:24→12:27)
[2016-09-01] MEDS: CIPROFLOXACIN / D5W 400 MG in PREMIXED IN D5W 200 ML IV SCH (07:24)
[2016-09-01] MEDS: POTASSIUM CHLORIDE INJ 40 MEQ in SODIUM CHLORIDE 0.9% 1000ML 1,000 ML IV SCH (07:24)
[2016-09-01 08:00] VITALS: BP 128/87; PULSE 83; TEMP 36.5; O2SAT 97
[2016-09-01 08:32] LABS: BUN/CREATININE RATIO 4.9 (10-20); CALCIUM 7.2 mg/dl (8.5-10.1); CREATININE 0.35 mg/dl (0.60-1.20); MAGNESIUM 1.9 mg/dl (1.8-2.4); POTASSIUM 3.5 mmol/L (3.5-5.1)
[2016-09-01 08:49] LABS: PHOSPHORUS 1.4 mg/dl (2.5-4.9)
[2016-09-01 15:27] VITALS: BP 124/78; PULSE 81; TEMP 36.8; O2SAT 95
[2016-09-01] MEDS ORDERED: THM100 PO (17:39)
[2016-09-01] MEDS ORDERED: MULT-589 PO (17:39)
[2016-09-01] MEDS ORDERED: NRN400 PO (17:39)
[2016-09-01] MEDS ORDERED: ZLF/100 PO (17:39)
[2016-09-01 17:44] VITALS: BP 124/78; PULSE 81; TEMP 36.8; O2SAT 95
--- NOTE | 2016-09-01 17:45 | Discharge Instructions ---
Discharge Instructions Admission Reason for Admission: Pancreatitis, Acute Discharge Discharge Diagnosis / Problem: Acute pancreatitis Discharge Goals Goal(s): Improve disease control, Therapeutic intervention Activity Recommendations Activity Limitations: resume your previous activity . Instructions / Follow-Up Instructions / Follow-Up You were admitted for acute pancreatitis caused by excessive alcohol intake. You do have some lab abnormalities that should be followed up as an outpatient. Please see Dr. White within 1 week after discharge. Please refrain from drinking any more alcohol. Our Nurse Navigator Perla Norman should be reaching out to you this week to give you more information on intensive outpatient programs for depression and alcohol rehabilitation. Incidentally your chest xray showed a possible small nodule in your right lung that was not seen on the CT scan, however you should ask Dr. White to order you a CT scan of the chest to look at your lungs in more detail. Current Hospital Diet Patient's current hospital diet: Low Fat Diet Discharge Diet Recommended Diet: Low Fat Diet Procedures Procedures Performed: CT abdomen/pelvis Chest and abomen xray Head CT Pending Studies Studies pending at discharge: no Laboratory Results Lipid Panel Test 08/27/16 10:53 Range/Units Triglycerides Level 168 H 0-150 mg/dl Cholesterol Level 161 0-200 mg/dl HDL Cholesterol 100 mg/dl Cholesterol/HDL Ratio 1.6 LDL Cholesterol, Calculated 27 mg/dl Medical Emergencies . Who to Call and When: Medical Emergencies: If at any time you feel your situation is an emergency, please call 911 immediately. . Non-Emergent Contact Non-Emergency issues call your: Primary Care Provider Call Non-Emergent contact if: your pain is not controlled, your pain is worsening, your pain is unusual for you, your pain is concerning you, you have any medication questions . . "Provider Documentation" section prepared by Lexi Hall. VTE Core Measure Inpt VTE Proph given/why not?: Enoxaparin (Lovenox)SQ
[2016-09-01] MEDS ORDERED: GABAPENTIN 400MG Q12H DOSE PO SCH (18:00)
--- NOTE | 2016-09-01 23:02 | Discharge Summary ---
Discharge Summary Admission Date: Aug 29, 2016 at 14:46 Discharge Date: Sep 01, 2016 Discharge Disposition: Home Principal Diagnosis: Acute pancreatitis Problems/Secondary Diagnoses: Alcohol abuse/dependence Depression with anxiety Hypokalemia Hypomagnesia Hypophosphatemia Diarrhea UTI Hyponatremia Lung nodule Procedures: ABDOMEN AND PELVIS CT WITH IV CONTRAST CT DOSE: 1570.39 mGy.cm HISTORY: Pancreatitis Pt c/o pancreatitis TECHNIQUE: Multiaxial CT images of the abdomen and pelvis were performed following the use of intravenous contrast. COMPARISON STUDY: 01/30/2016 FINDINGS: Lung bases are clear. Diffuse fatty infiltration of liver. Diffuse edematous change and infiltrative change of the peripancreatic fascial planes. Fluid surrounding components of the stomach. Moderate infiltrative change of the mesentery. Small to moderate amount of free fluid within the paracolic gutter regions. Significant free fluid within the soft tissue pelvic region and cul-de-sac. Bladder is midline. Bowel pattern overall is nonobstructive. Findings of a surgical anastomosis of the sigmoid are again noted. All major vessels appear patent at this time. Kidneys enhance uniformly. No evidence for drainable abscess collection or pseudocyst at the current time. IMPRESSION: 1. Diffuse pancreatitis with considerable peripancreatic infiltrative and free fluid change. 2. Fluid is identified in the perigastric region, paracolic gutter and flank regions, as well as significant fluid within the soft tissue pelvis. 3. Fatty infiltration of liver unchanged. CHEST AND ABDOMEN 2 VIEWS HISTORY: Generalized abdominal pain. COMPARISON: Chest 08/27/2016. Abdomen and pelvis CT 01/30/2016. FINDINGS: Suture material seen throughout the pelvis. Mild dilated gas-filled loops of small bowel within the midabdomen. There is also nondistended gas-filled colon. No pneumoperitoneum. No pneumatosis. The chest image of the study is mislabeled. No pneumothorax. No pleural effusions. The heart is normal in size. Questionable 1.4 cm nodular density within the right lower lung zone persists. IMPRESSION: 1. No acute process within the chest. 2. Questionable 1.4 cm nodular density within the right lung base is again noted. This area may be included on the same day abdomen and pelvis CT and should be evaluated at that time. If not, a follow-up nonemergent chest CT is recommended. 3. Mildly distended loops of small bowel within the midabdomen. There is also gas within the colon. Therefore, this favors an ileus. A partial small bowel obstruction could also have a similar appearance. HEAD CT NONCONTRAST CT DOSE: HISTORY: Altered mental status. TECHNIQUE: Multiaxial CT images of the head were performed without the use of intravenous contrast. Automated exposure control was utilized for this study. Comparison: None. Findings: The paranasal sinuses and mastoid air cells are clear. The calvarium and skull base are intact. The ventricles and sulci are within normal limits. There is no mass, hematoma, midline shift, or acute infarct. Right posterior scalp swelling. Impression: No acute intracranial abnormality. Right posterior scalp injury. Consultations: Psychiatry Medication Reconciliation New Medications: Multivitamins (Daily [place]) 1 Tab Tab 1 TAB PO DAILY, #30 TAB Gabapentin (Gabapentin) 400 Mg Cap 400 MG PO Q12H for 2 Days, #3 CAP take 400mg po bid x 1 day then 400mg po daily x 1 day then stop Thiamine HCl (Vitamin B-1) 100 Mg Tab 100 MG PO DAILY for 30 Days, #30 TAB Changed Medications: Sertraline HCl (Sertraline HCl) 100 Mg Tab 150 MG PO DAILY, #45 TAB (Changed from: 100 MG; 30) Continued Medications: Potassium Chloride (Potassium Chloride ER) 20 Meq Tab 20 MEQ PO BID, #60 Discontinued Medications: Doxycycline Hyclate (Vibramycin) 100 Mg Cap 100 MG PO BID, #14 Levofloxacin (Levaquin) 750 Mg Tab 750 MG PO DAILY, #5 Referrals At Discharge Follow up Referrals: Family Practice Referral - Within 1 Week with Gerardo White M.D. Discharge Exam Review of Systems: Constitutional: No fever Eyes: No problem reported ENT: No problem reported Respiratory: No shortness of breath Cardiovascular: No chest pain Abdomen: No constipation, No diarrhea, No nausea, No pain, No vomiting Musculoskeletal: No problem reported Genitourinary - Female: No problem reported Neurologic: No problem reported Psychiatric: + anxiety, + depression symptoms, + substance abuse Endocrine: No problem reported Hematologic / Lymphatic: No problem reported Integumentary: No problem reported Physical Exam: General Appearance: WD/WN, no apparent distress Eyes: normal inspection, sclerae normal ENT: hearing grossly normal, pharynx normal Neck: trachea midline Respiratory/Chest: lungs clear, normal breath sounds, no respiratory distress, no accessory muscle use Cardiovascular: regular rate, rhythm, no edema, no gallop, no JVD, no murmur , normal peripheral pulses Abdomen / GI: normal bowel sounds, non tender, soft, no organomegaly, no pulsatile mass Extremities: normal inspection, no calf tenderness, no pedal edema, normal range of motion Neurologic/Psychiatric: alert, normal mood/affect, oriented x 3 Skin: normal color, warm/dry, no rash Hospital Course Ms. Ramirez is a 51-year-old female who has a history of having had pancreatitis back in December of 2015. She was discharged and then returned shortly thereafter with C. diff. She was treated with oral vancomycin and probiotics. The patient's initial pancreatitis episode was attributed to alcohol abuse. The patient was recently seen her primary care doctor and given doxycycline. She says 1 day after initiating doxycycline therapy, she began having nausea, vomiting, diarrhea, abdominal pain. She was given the doxycycline for pulmonary complaints. The patient tried to take yogurt at home to help with her diarrhea, but none of this resolved her symptoms. Subsequently, she presented to the ER as she said her diarrhea reminded of her C. diff. In the Emergency Department, they were unable to obtain a stool culture; however, she was found to have a lipase of [address] which showed inflammation around the pancreatic head. The patient also had a fall prior to coming in where she struck the back of her head. There is no laceration. Her glasses were broken at that time. She was admitted, given IVFs, made NPO and then advanced diet slowly as tolerated. She was seen by Psychiatry who advised alcohol rehabilitative services and she accepted-this will get assistance with this from our Nurse Navigator after the holiday to get IOP. Psych also increased her Zoloft to 150mg and said could go up even higher. Her informed me that he locked up all the EtOH in the house at patient' s request. Her lipase improved, her abd pain improved and she was well enough for discharge to home on hospital day #3. Diarrhea , resolved poss sec to pancreatitis, C diff ruled out added Probiotics UTI, OP urine culture grew E coli on 08/27 IV Cipro for 3 days then stopped Total Time Spent: Greater than 30 minutes This includes examination of the patient, discharge planning, medication reconciliation, and communication with other providers. Discharge Instructions Please refer to the electronic Patient Visit Report (Discharge Instructions) for additional information. Follow-Up With PCP within 1 week Additional Copies To Gerardo White M.D.
[2016-09-03] MEDS ORDERED: GABAPENTIN 400MG X1 DOSE PO SCH (06:00)
== END 2016-09-01 18:01 | disposition home or self-care (01) | DRG 439 ==
LOC: ENRESERVDT → ENRESERVTM → C.EDB 11:49 → C.MS2W 14:46
PROVIDERS: ADMIT Internal Medicine; ATTEND Internal Medicine
DX: K85.20 Alcohol induced acute pancreatitis without necrosis or infection (principal); N39.0 Urinary tract infection, site not specified; E87.1 Hypo-osmolality and hyponatremia; F32.1 Major depressive disorder, single episode, moderate; F10.239 Alcohol dependence with withdrawal, unspecified; R19.7 Diarrhea, unspecified; B96.20 Unspecified Escherichia coli [E. coli] as the cause of diseases classified elsewhere; E87.6 Hypokalemia; E83.39 Other disorders of phosphorus metabolism; E83.42 Hypomagnesemia; F41.1 Generalized anxiety disorder; F41.8 Other specified anxiety disorders; Z91.5 Personal history of self-harm; Z91.81 History of falling; Z91.410 Personal history of adult physical and sexual abuse; Z91.411 Personal history of adult psychological abuse; Z81.8 Family history of other mental and behavioral disorders; Z83.3 Family history of diabetes mellitus; Z84.1 Family history of disorders of kidney and ureter; Z82.49 Family history of ischemic heart disease and other diseases of the circulatory system; Z79.899 Other long term (current) drug therapy

== ENCOUNTER → 2016-10-03 | Outpatient (CLI) | payer OTHER ==
[~2016-10-03] MED LIST changes: -CLCC1250 PO; -LCTX PO; -MCRK20 PO; +MULT-589 PO; +NRN400 PO; +POTA-65 PO; -POTTAB2 PO; +THM100 PO; -VANC5CAP PO
[2016-10-03 12:19] LABS: BASO % 0.1 %; BASO ABS # 0.01 K/uL (0-0.2); COMPLETE YES; EOS % 2.4 %; HEMATOCRIT 38.5 % (37-47); IG% 0.3 %; LYMPH % 28.7 %; LYMPH ABS # 2.04 K/uL (1.2-3.4); MEAN CELL VOLUME 99.2 fL (80-100); MEAN CORPUSCULAR HGB CONC 33.2 g/dl (32-36); MEAN PLATELET VOLUME 10.7 fL (7.4-10.4); MONO % 5.2 %; NEUT % 63.3 %; PLATELET COUNT 198 K/uL (130-400); RED BLOOD COUNT 3.88 M/uL (4.2-5.4)
[2016-10-03 12:28] LABS: ALT/SGPT 18 U/L (12-78); BLOOD UREA NITROGEN 10 mg/dl (7-18); BUN/CREATININE RATIO 16.6 (10-20); CALCIUM 9.1 mg/dl (8.5-10.1); CARBON DIOXIDE 24 mmol/L (21-32); CHLORIDE 105 mmol/L (98-107); CREATININE 0.61 mg/dl (0.60-1.20); GLUCOSE 87 mg/dl (70-99); SODIUM 140 mmol/L (136-145)
[2016-10-03 12:31] LABS: ALKALINE PHOSPHATASE 89 U/L (45-117); AST/SGOT 17 U/L (15-37)
[2016-10-03 12:36] LABS: BLOOD UREA NITROGEN 11 mg/dl (7-18); BUN/CREATININE RATIO 16.7 (10-20); CALCIUM 9.1 mg/dl (8.5-10.1); CARBON DIOXIDE 25 mmol/L (21-32); CHLORIDE 105 mmol/L (98-107); CREATININE 0.63 mg/dl (0.60-1.20); GLUCOSE 89 mg/dl (70-99); POTASSIUM 4.1 mmol/L (3.5-5.1); SODIUM 139 mmol/L (136-145)
== END | disposition home or self-care (01) ==
LOC: C.LABBFT 07:33
PROVIDERS: ATTEND Internal Medicine
DX: E07.9 Disorder of thyroid, unspecified (principal); E83.42 Hypomagnesemia; E83.51 Hypocalcemia; E87.6 Hypokalemia; H71.90 Unspecified cholesteatoma, unspecified ear; R74.8 Abnormal levels of other serum enzymes; Z13.6 Encounter for screening for cardiovascular disorders

== ENCOUNTER → 2016-10-07 | Outpatient (CLI) | payer OTHER | END | disposition home or self-care (01) | LOC: C.LABSPEC 15:10 | PROVIDERS: ATTEND Internal Medicine | DX: R19.7 Diarrhea, unspecified (principal) ==

== ENCOUNTER → 2016-10-10 | Outpatient (CLI) | payer OTHER ==
[~2016-10-10] MED LIST changes: +OPTIRAY 320 IV PRN
--- NOTE | 2016-10-10 16:10 | DIAGNOSTIC IMAGING REPORT ---
CT OF THE CHEST WITH IV CONTRAST CLINICAL HISTORY: Pulmonary nodule. COMPARISON STUDY: Chest radiograph and abdominal series August 29, [address] of the abdomen and pelvis August 29, 2016. TECHNIQUE: Following IV administration of 90 mL of Optiray-320, helical axial images of the chest were obtained. Images were viewed in the axial, sagittal and coronal planes. IV contrast was administered without complication. CT DOSE: 400.06 mGy.cm FINDINGS: No enlarged axillary, mediastinal or hilar lymph nodes are present. The size of the heart is normal. A small to moderate hiatal hernia is noted. Central airways are patent. No pulmonary nodules are identified. The nodular density shown on exam of August 29, 2016 and was likely artifactual. There is no consolidation to suggest pneumonia. No pneumothorax or pleural effusion is present. Bony thorax is unremarkable. Visualized portions of the upper abdomen demonstrate a 2.1 cm round density adjacent to the pancreatic tail which measures just above water attenuation. The extensive peripancreatic fluid and infiltration shown on CT of August 29, 2016 has resolved. IMPRESSION: 1. No pulmonary nodules. The right lung nodular density shown on exam of August 29, 2016 reflected artifact or airspace opacity which has resolved. 2. 2.1 cm round density adjacent to the pancreatic tail. When correlating with prior CT of August 29, 2016, this likely reflects a small pseudocyst. The extensive peripancreatic fluid and infiltration shown on prior CT has resolved. A follow-up CT of the abdomen in 6 months is recommended to ensure continued resolution. Electronically signed by: Fabio Roth M.D. 10/10/2016 4:09 PM Dictated Date/Time: 10/10/2016 3:16 PM
== END | disposition home or self-care (01) ==
LOC: C.CTS 14:56
PROVIDERS: ATTEND Internal Medicine
DX: R91.1 Solitary pulmonary nodule (principal); K86.3 Pseudocyst of pancreas

== ENCOUNTER → 2017-04-16 | Outpatient (CLI) | payer OTHER ==
[2017-04-16 11:43] LABS: BASO % 0.2 %; BASO ABS # 0.02 K/uL (0-0.2); COMPLETE YES; EOS % 1.2 %; IG% 0.2 %; LYMPH % 31.7 %; LYMPH ABS # 2.64 K/uL (1.2-3.4); MEAN CELL VOLUME 94.7 fL (80-100); MEAN CORPUSCULAR HGB CONC 34.9 g/dl (32-36); MEAN PLATELET VOLUME 10.8 fL (7.4-10.4); MONO % 4.8 %; NEUT % 61.9 %; PLATELET COUNT 171 K/uL (130-400); RED BLOOD COUNT 4.12 M/uL (4.2-5.4); WHITE BLOOD COUNT 8.34 K/uL (4.8-10.8)
[2017-04-16 12:02] LABS: ALT/SGPT 27 U/L (12-78); BLOOD UREA NITROGEN 11 mg/dl (7-18); BUN/CREATININE RATIO 18.7 (10-20); CALCIUM 9.4 mg/dl (8.5-10.1); CARBON DIOXIDE 24 mmol/L (21-32); CHLORIDE 102 mmol/L (98-107); CREATININE 0.61 mg/dl (0.60-1.20); GLUCOSE 93 mg/dl (70-99); POTASSIUM 3.3 mmol/L (3.5-5.1); SODIUM 135 mmol/L (136-145)
[2017-04-16 12:03] LABS: ALB/GLOB RATIO 1.1 (0.9-2); ALKALINE PHOSPHATASE 101 U/L (45-117); AST/SGOT 20 U/L (15-37)
--- NOTE | 2017-04-16 12:27 | DIAGNOSTIC IMAGING REPORT ---
ABD WITH IV AND ORAL CONT (CT) CLINICAL HISTORY: 52 years-old Female presenting with pancreatic pseudocyst. TECHNIQUE: Multidetector CT of the abdomen was performed after the administration of intravenous contrast. IV contrast: 93 mL of Optiray 320. A dose lowering technique was used consistent with the principles of ALARA (as low as reasonably achievable). COMPARISON: 08/29/[address] chest from 10/10/2016. CT DOSE (mGy.cm): The estimated cumulative dose is 588.39 mGycm. FINDINGS: [employer] Insulation topogram: Unremarkable. Lung bases: Minimal groundglass opacity in the right middle lobe, possibly atelectasis. Additional minimal dependent subpleural changes likely also atelectasis. No pericardial or pleural effusion. Liver: Normal morphology. No liver lesion. Patent hepatic vasculature. Biliary: No intrahepatic or extrahepatic biliary ductal dilatation. Normal gallbladder. Pancreas: No significant peripancreatic inflammatory change. Normal enhancement of the pancreatic parenchyma. No gross evidence of pancreatic duct dilatation. Slight interval decrease in size of the cystic lesion at the pancreatic tail, which now measures 17 mm, previously 21 mm when remeasured at a comparable level. No evidence of associated soft tissue nodular enhancement. No peripancreatic fluid. Spleen: Normal. Adrenal glands: 6 Kidneys and ureters: No nephrolithiasis. No hydronephrosis. Proximal ureters normal. Bowel: Moderate hiatal hernia. No bowel obstruction. Peritoneal cavity: No free fluid or intraperitoneal gas. Vasculature: Aorta and IVC patent and normal in caliber. Lymph nodes: Multiple subcentimeter retroperitoneal lymph nodes, possibly reactive. Abdominal wall: Small fat-containing umbilical hernia. Musculoskeletal: Deformity of the right posterior ninth rib consistent with old fracture. No obstructive osseous lesion. IMPRESSION: 1. Slight interval decrease in prominence of the cystic lesion at the pancreatic tail most consistent with pseudocyst given the history of pancreatitis. No evidence of acute pancreatitis at this time. No suspicious pancreatic mass. 2. Moderate hiatal hernia. Electronically signed by: Harshil Hu M.D. 04/16/2017 12:25 PM Dictated Date/Time: 04/16/2017 12:20 PM
== END | disposition home or self-care (01) ==
LOC: C.CTS 10:50
PROVIDERS: ATTEND Internal Medicine
DX: K86.3 Pseudocyst of pancreas (principal); K44.9 Diaphragmatic hernia without obstruction or gangrene

== ENCOUNTER → 2017-10-22 | Outpatient (CLI) | payer OTHER ==
[~2017-10-22] MED LIST changes: -OPTIRAY 320 IV PRN
[2017-10-22 09:33] LABS: BASO % 0.2 %; BASO ABS # 0.01 K/uL (0-0.2); EOS % 3.2 %; EOS ABS # 0.16 K/uL (0-0.5); HEMATOCRIT 38.8 % (37-47); HEMOGLOBIN 12.8 g/dL (12.0-16.0); IG# 0.01 K/uL (0.00-0.02); LYMPH % 25.8 %; MEAN CELL VOLUME 102.1 fL (80-100); MEAN CORPUSCULAR HEMOGLOBIN 33.7 pg (25-34); MEAN PLATELET VOLUME 10.4 fL (7.4-10.4); MONO % 9.1 %; MONO ABS # 0.46 K/uL (0.11-0.59); NEUT % 61.5 %; PLATELET COUNT 158 K/uL (130-400); RED CELL DISTRIBUTION WIDTH CV 14.9 % (11.5-14.5); RED CELL DISTRIBUTION WIDTH SD 55.4 fL (36.4-46.3); WHITE BLOOD COUNT 5.04 K/uL (4.8-10.8)
[2017-10-22 09:53] LABS: ALBUMIN 3.3 gm/dl (3.4-5.0); ALT/SGPT 40 U/L (12-78); BLOOD UREA NITROGEN 6 mg/dl (7-18); CALCIUM 8.5 mg/dl (8.5-10.1); CARBON DIOXIDE 30 mmol/L (21-32); CHOLESTEROL 220 mg/dl (0-200); CREATININE 0.59 mg/dl (0.60-1.20); GLUCOSE 97 mg/dl (70-99); POTASSIUM 3.8 mmol/L (3.5-5.1); SODIUM 139 mmol/L (136-145)
[2017-10-22 10:03] LABS: ALKALINE PHOSPHATASE 93 U/L (45-117); AST/SGOT 46 U/L (15-37); LDL CHOLESTEROL CALCULATED 136 mg/dl; TOTAL PROTEIN 6.6 gm/dl (6.4-8.2)
== END | disposition home or self-care (01) ==
LOC: C.LAB 07:15
PROVIDERS: ATTEND Internal Medicine
DX: Z13.6 Encounter for screening for cardiovascular disorders (principal); R74.8 Abnormal levels of other serum enzymes; E87.6 Hypokalemia; E07.9 Disorder of thyroid, unspecified; E55.9 Vitamin D deficiency, unspecified

== ENCOUNTER 2019-01-16 21:33 | Inpatient (IN) ==
[2019-01-16] MEDS ORDERED: ONDANSETRON INJ 2 MG/ML 2 ML VIAL IV STA (22:16)
[2019-01-16] MEDS ORDERED: MoRPHine SULFATE 2 MG/ML CARP IV STA (22:16)
[2019-01-16] MEDS: SODIUM CHLORIDE 0.9% 1000ML 1,000 ML IV SCH ×2 (22:48→23:14)
[2019-01-16 23:06] LABS: Albumin Globulin Ratio 1.1 (0.9-2); Albumin Level 4.2 gm/dl (3.4-5.0); Bilirubin,Total 1.6 mg/dl (0.2-1); Calcium 9.6 mg/dl (8.5-10.1); Creatinine Clr Calc Pharmacy 68.1 ml/min; Est GFR (African American) 69.6; Est GFR (Non-African American) 60.1; Magnesium 1.1 mg/dl (1.8-2.4); Total Protein 8.2 gm/dl (6.4-8.2); Troponin I 0.025 ng/ml (0-0.045)
[2019-01-16] MEDS ORDERED: MAGNESIUM SULFATE / D5W 1 GM/100 ML BAG IV ONE (23:08)
[2019-01-16] MEDS: POTASSIUM CHLORIDE / WTR 10 MEQ/100 ML PLCT IV SCH (23:13)
[2019-01-16] MEDS ORDERED: SODIUM CHLORIDE 0.9% 1000ML 1,000 ML IV SCH (23:15)
[2019-01-16 23:18] LABS: BUN Creatinine Ratio 7.9 (10-20)
[2019-01-16 23:26] LABS: T4 Free Thyroxine 1.44 ng/dl (0.8-1.6)
[2019-01-16 23:49] LABS: Hematocrit (blood only) 41.2 % (37-47); Hemoglobin 15.2 g/dL (12.0-16.0); Mean Corpuscular Hgb Conc 36.9 g/dL (32-36); Mean Corpuscular Volume 93.8 fL (80-100); Platelet Count 81 K/uL (130-400); Red Blood Count 4.39 M/uL (4.2-5.4); White Blood Count 7.56 K/uL (4.8-10.8)
[2019-01-16 23:50] LABS: Eosinophils # (auto) 0.01 K/uL (0-0.5); Eosinophils % (auto) 0.1 %; Immature Granulocytes # (auto) 0.01 K/uL (0.00-0.02); Immature Granulocytes % (auto) 0.1 %; Lymphocytes # (auto) 1.17 K/uL (1.2-3.4); Lymphocytes % (auto) 15.5 %; Monocytes # (auto) 0.43 K/uL (0.11-0.59); Monocytes % (auto) 5.7 %; Neutrophils # (auto) 5.94 K/uL (1.4-6.5); Neutrophils % (auto) 78.6 %; Platelet Estimate Decreased (Normal); RBC Morphology Unremarkable
[2019-01-17] MEDS: POTASSIUM CHLORIDE / WTR 10 MEQ/100 ML PLCT IV SCH ×3 (00:19→05:46)
[2019-01-17] MEDS ORDERED: ONDANSETRON INJ 2 MG/ML 2 ML VIAL IV STA (00:39)
[2019-01-17] MEDS ORDERED: IOVERSOL 100ml IV PRN (01:13)
[2019-01-17 01:24] LABS: Appearance Urine Clear (Clear); Bacteria Urine Automated 3+ (Negative); Bilirubin Urine Negative (Negative); Blood Urine 1+ (Negative); Cast Urine Automated 0 /lpf (0-5); Color Urine Yellow; Epithelial Cell Urine Auto >30 /lpf (0-5); Glucose Urine UA Negative (Negative); Ketones Urine Negative (Negative); Leukocyte Esterase Urine Trace (Negative); Nitrite Urine Negative (Negative); Protein Urine Negative (Negative); Specific Gravity Urine 1.008 (1.000-1.030); Urobilinogen Urine Negative (Negative); pH Urine 7.5 (4.5-7.5)
--- NOTE | 2019-01-17 01:29 | History & Physical Report ---
Date of Service January 17, 2019 Assessment & Plan (1) Diarrhea: Differential includes C. difficile colitis, infectious colitis, cholecystitis, pancreatitis, hepatitis, food poisoning and others. Follow results of stool studies. Present on Admission?: Yes (2) History of Clostridium difficile colitis: Stool was sent for C. difficile, however, there was not enough of a sample to run the test, which makes this diagnosis less likely. Present on Admission?: Yes (3) Anxiety: Continue sertraline 200 mg p.o. daily and lorazepam 1 mg p.o. twice daily as needed. Present on Admission?: Yes (4) Abnormal LFTs: LFTs were normal on 10/22/2017. Today's labs: AST 598, ALT 327, total bilirubin 1.6, and alk phos 211. Have added an acute hepatitis profile and CT of abdomen and pelvis. I have asked the ED to add a urine drug screen and alcohol level. CT report suggest possibilities including esophagitis and gastritis. Consult gastroenterology. Placed on famotidine 20 mg IV every 12 hours Hold Amitiza. Thrombocytopenia- Will check for ehrlichiosis and anaplasmosis. Present on Admission?: Yes (5) Hypokalemia: Secondary to GI losses. Placed on NSS + KCl 20 mEq at 200 mils per hour. Repeat lab present the a.m. Present on Admission?: Yes (6) Hypomagnesemia: Secondary to GI losses. Replace with magnesium sulfate 3 g IV, and then repeat labs. Present on Admission?: Yes History of Present Illness Chief Complaint: The patient presents to the emergency department with complaint of 4 days of worsening intractable diarrhea, abdominal discomfort and general ized fatigue. Primary Care Provider: Gerardo White MD The patient is a 53-year-old female with a past medical history including anxiety, C. difficile colitis and SVT who presents to the emergency department with 4 days of worsening abdominal discomfort and diarrhea. 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 She also notes generalized fatigue, lightheadedness and dizziness. Allergies Allergy/AdvReac Type Severity Reaction Status Date / Time No Known Allergies Allergy Verified 01/16/19 22:40 Home Medications Home Medications Medication Instructions Recorded Confirmed Type gabapentin [Neurontin] 400 mg PO QAM 09/19/18 01/16/19 History sertraline [Zoloft] 200 mg PO DAILY 09/19/18 01/16/19 History ergocalciferol (vitamin D2) 50,000 unit PO WK 01/16/19 01/16/19 History lorazepam 1 mg PO BID PRN 01/16/19 01/16/19 History lubiprostone [Amitiza] 8 mcg PO BID 01/16/19 01/16/19 History Past Med/Surg History Medical History Anxiety (Chronic) Prolapse of intestine (Resolved) Pancreatitis, acute (Resolved) SVT (supraventricular tachycardia) (Resolved) Surgical History H/O: hysterectomy (Resolved) Social History Preferred Language: Georgian Communication Ability: Effective Beliefs That Will Affect Care: None Current Living Situation: Spouse Other Information That Helps Us Care for You: No Feels Safe at Home: Yes Safety Concerns: Feels Safe At This Time Smoking Status: Never smoker Do You Dip or Chew Tobacco: No Second Hand Exposure: No Tobacco Cessation Education Requested by Patient: No Hx Alcohol Use: Yes Alcohol type: beer and wine Hx Substance Use: No Review of Systems Review of Systems: The patient denies chest pain, palpitations, shortness of breath, dyspnea on exertion, cough, lower extremity swelling, sore throat, fevers, chills, sweats, vomiting, blood in urine or stool, dysuria, urinary frequency or urgency, dizziness, headache, memory loss, loss of consciousness, rash, abnormal bruising or bleeding, imbalance, focal or generalized weakness, numbness or tingling in arms or legs, back or neck pain, or night sweats. The review of systems is otherwise negative other than for that already noted above, and at least 10 systems have been reviewed. Physical Exam Physical Exam: The patient is awake, alert and oriented 3, fatigued appearing, normocephalic and atraumatic, lying in bed and in no acute distress. HEENT--PERRL, EOMI, mucous membranes and oropharynx dry. Neck--supple. No JVD. No bruits. Thyroid normal, trachea midline, no adenopathy. Heart--normal S1 and S2. No murmurs, rubs or gallops. Lungs--clear bilaterally, no respiratory distress, no accessory muscle use. Abdomen--normal bowel sounds and soft. Generalized mild tenderness. Mildly distended and tympanitic Extremities--no cyanosis or clubbing. No edema. There are good distal pulses b/l. Dermatologic--normal skin turgor, normal color, no abnormal lymph nodes, no rash. Neurologic--cranial nerves II through XII grossly intact. Rheumatologic--normal range of motion. Psychiatric--normal affect. Results & Data Vital Signs (Past 12 Hours) Vital Signs Pulse Pulse Resp BP BP Pulse Ox 01/17/19 01:09 119 H 24 131/79 99 01/17/19 00:44 122 H 20 114/69 98 01/16/19 23:23 125 H 18 130/66 98 01/16/19 22:51 125 H 28 H 97/68 L 01/16/19 22:17 98 01/16/19 21:41 143 H 20 131/84 99 Laboratory Results Laboratory Results WBC 6.35 K/uL (4.8-10.8) 01/17/19 02:56 RBC 3.94 M/uL (4.2-5.4) L 01/17/19 02:56 Hgb 13.4 g/dL (12.0-16.0) 01/17/19 02:56 Hct 37.1 % (37-47) 01/17/19 02:56 MCV 94.2 fL (80-100) 01/17/19 02:56 MCH 34.0 pg (25-34) 01/17/19 02:56 MCHC 36.1 g/dL (32-36) H 01/17/19 02:56 RDW Std Deviation 43.0 fL (36.4-46.3) 01/17/19 02:56 RDW Coeff of Baudilio 12.5 % (11.5-14.5) 01/17/19 02:56 Plt Count 80 K/uL (130-400) L 01/17/19 02:56 MPV 11.3 fL (7.4-10.4) H 01/17/19 02:56 Immature Gran % (Auto) 0.3 % 01/17/19 02:56 Neut % (Auto) 71.9 % 01/17/19 02:56 Lymph % (Auto) 18.6 % 01/17/19 02:56 [place] % (Auto) 9.0 % 01/17/19 02:56 Eos % (Auto) 0.0 % 01/17/19 02:56 Baso % (Auto) 0.2 % 01/17/19 02:56 Immature Gran # (Auto) 0.02 K/uL (0.00-0.02) 01/17/19 02:56 Neut # (Auto) 4.57 K/uL (1.4-6.5) 01/17/19 02:56 Lymph # (Auto) 1.18 K/uL (1.2-3.4) L 01/17/19 02:56 [place] # (Auto) 0.57 K/uL (0.11-0.59) 01/17/19 02:56 Eos # (Auto) 0.00 K/uL (0-0.5) 01/17/19 02:56 Baso # (Auto) 0.01 K/uL (0-0.2) 01/17/19 02:56 Decreased (Normal) L 01/16/19 22:24 RBC Morphology Unremarkable 01/16/19 22:24 PT 11.9 Seconds (9.0-12.0) 01/17/19 02:56 INR 1.2 (0.9-1.1) H 01/17/19 02:56 APTT 23.6 Seconds (21.0-31.0) 01/17/19 02:56 PTT Ratio 0.9 01/17/19 02:56 Sodium 133 mmol/L (136-145) L 01/17/19 02:56 Potassium 2.0 mmol/L (3.5-5.1) L* 01/17/19 02:56 Chloride 91 mmol/L (98-107) L 01/17/19 02:56 Carbon Dioxide 27 mmol/L (21-32) 01/17/19 02:56 15.0 (3-11) H 01/17/19 02:56 BUN 6 mg/dl (7-18) L 01/17/19 02:56 0.74 mg/dl (0.6-1.2) D 01/17/19 02:56 Est Cr Clr Drug Dosing 99.9 ml/min 01/17/19 02:56 Est GFR ( Amer) 108.7 01/17/19 02:56 Est GFR (Non-Af Amer) 93.8 01/17/19 02:56 8.3 (10-20) L 01/17/19 02:56 Glucose 123 mg/dl (70-99) H 01/17/19 02:56 Calcium 8.4 mg/dl (8.5-10.1) L 01/17/19 02:56 Magnesium 1.1 mg/dl (1.8-2.4) L 01/16/19 22:24 1.7 mg/dl (0.2-1) H 01/17/19 02:56 AST 447 U/L (15-37) H 01/17/19 02:56 ALT 254 U/L (12-78) H 01/17/19 02:56 162 U/L (45-117) H 01/17/19 02:56 32.0 umol/L (11-32) 01/17/19 01:57 0.025 ng/ml (0-0.045) 01/16/19 22:24 6.5 gm/dl (6.4-8.2) D 01/17/19 02:56 3.5 gm/dl (3.4-5.0) 01/17/19 02:56 3.0 gm/dl (2.5-4.0) 01/17/19 02:56 1.2 (0.9-2) 01/17/19 02:56 239 U/L (73-393) 01/17/19 02:56 TSH 4.800 uIu/ml (0.300-4.500) H 01/16/19 22:24 Free T4 1.44 ng/dl (0.8-1.6) 01/16/19 22:24 Yellow 01/17/19 01:05 Clear (Clear) 01/17/19 01:05 7.5 (4.5-7.5) 01/17/19 01:05 Ur Specific [place] 1.008 (1.000-1.030) 01/17/19 01:05 Negative (Negative) 01/17/19 01:05 Negative (Negative) 01/17/19 01:05 Negative (Negative) 01/17/19 01:05 1+ (Negative) H 01/17/19 01:05 Negative (Negative) 01/17/19 01:05 Negative (Negative) 01/17/19 01:05 Negative (Negative) 01/17/19 01:05 Ur Leukocyte Esterase Trace (Negative) H 01/17/19 01:05 1-5 /hpf (0-5) 01/17/19 01:05 5-10 /hpf (0-4) H 01/17/19 01:05 U Hyaline Cast (Auto) 0 /lpf (0-5) 01/17/19 01:05 U Epithel Cells (Auto) >30 /lpf (0-5) H 01/17/19 01:05 3+ (Negative) H 01/17/19 01:05 Stl C. diff Tox B Gene TNP 01/16/19 23:20 Pos (Neg) H 01/17/19 01:05 Ur Methadone, Qual Neg (Neg) 01/17/19 01:05 Neg (Neg) 01/17/19 01:05 Ur Phencyclidine (PCP) Neg (Neg) 01/17/19 01:05 U Amphetamin/Meth Scrn Neg (Neg) 01/17/19 01:05 Neg (Neg) 01/17/19 01:05 U Benzodiazepines Scrn Neg (Neg) 01/17/19 01:05 Ur Cocaine Metabolite Neg (Neg) 01/17/19 01:05 U Marijuana (THC) Screen Neg (Neg) 01/17/19 01:05 Hep Bs Antigen Neg (Neg) 01/17/19 00:42 Hep Bs Antibody Immune 01/17/19 00:42 Hep Bs Antibody, Quant 12.08 mIU/mL (>or=10mIU/mL Immune) 01/17/19 00:42 Neg (Neg) 01/17/19 00:42 Diagnostic Findings [facility] Patient: VIVIEN JOHNSON (Female) Age: 53 MR #: [id number] Status: ER Date: 01/17/19 01:02 Slices: [id number] History: WEAKNESS, DIARRHEA, APPENDIX PRESENT Priors: Tech: Tonya Grande @ [phone] Exams: CT ABDOMEN & PELVIS With Contrast Contrast: IV Amt: 94 CC'S Accession Numbers: [id number] Preliminary Findings Only See Final Report For Complete Findings CT ABDOMEN & PELVIS With Contrast: Circumferential wall thickening of the distal esophagus with surrounding fat stranding is concerning for esophagitis. Malignancy is not excluded. Recommend clinical correlation. Small hiatal hernia. There is fat stranding and fluid surrounding the proximal stomach which could represent gastritis. The fat stranding and fluid also contacts the superior portion of the pancreatic body. Acute pancreatitis is also not excluded. Recommend correlation with lipase. No change in a 1.2 cm hyperdense lesion at the pancreatic tail/splenic hilum which is probably benign given stability. Hepatic steatosis. The bladder is distended. Recommend correlation with urinary output. Status post hysterectomy. No adnexal masses. Status post distal colon resection with intact anastomosis. No bowel wall thickening or obstruction. The appendix is not identified. Surgical clips in the cecum probably represent prior appendectomy. Radiologist: Billy Castro MD Study ready at 01:04 and initial results transmitted at 01:13 *This report constitutes a preliminary interpretation only. Non-acute findings felt to be unrelated to the clinical presentation may not be discussed in this report. The study will be interpreted and a final report will be generated by the local Radiologist the following shift. To reach the hospital radiology department call [phone]. If a discrepancy is found between the preliminary and final interpretations of this study, please notify us via our Client Portal at [email or web address], under QA Exams. You can also fax this report with a description of the discrepancy, or include the final report, to our daytime fax number [phone]. If faxing, please indicate the severity of discrepancy using one of the following categories: [ ] 1 - Agree/Informational [ ] 2 - Unlikely to Affect Management [ ] 3 - Possible Eventual Change of Management [ ] 4 - Probable Immediate Change of Management For all other patient related information, please fax us at [phone]. Code Status & VTE Plan Code Status Full code VTE Prophylaxis Plan VTE Prophylaxis will be ordered: Yes (1) Diarrhea Diarrhea type: unspecified type Qualified Code(s): R19.7 - Diarrhea, unspecified
[2019-01-17 01:42] LABS: Hepatitis B Surface Antibody Immune
[2019-01-17 01:45] LABS: Amphetamines+Metham, Urine Neg (Neg); Barbiturates, Urine Neg (Neg); Benzodiazepine, Urine Neg (Neg); Cocaine, Urine Neg (Neg); MDMA (Ecstacy), Urine Neg (Neg); Methadone, Urine Neg (Neg); Opiate, Urine Pos (Neg); Phencyclidine, Urine Neg (Neg)
[2019-01-17 01:53] LABS: Hepatitis B Surface Antigen Neg (Neg)
[2019-01-17 02:22] LABS: Hepatitis C IgG 13Yrs+Old_Rflx Neg (Neg)
[2019-01-17] MEDS: MAGNESIUM SULFATE / D5W 1 GM/100 ML BAG IV SCH ×2 (02:51→04:06)
[2019-01-17] MEDS: NSS + 20MEQ KCL 20 MEQ/1,000 ML BAG IV SCH ×3 (02:51→12:44)
[2019-01-17 03:19] LABS: Hematocrit (blood only) 37.1 % (37-47); Hemoglobin 13.4 g/dL (12.0-16.0); Mean Corpuscular Hgb Conc 36.1 g/dL (32-36); Mean Corpuscular Volume 94.2 fL (80-100); RDW Coefficient of Variation 12.5 % (11.5-14.5); Red Blood Count 3.94 M/uL (4.2-5.4); White Blood Count 6.35 K/uL (4.8-10.8)
[2019-01-17 03:33] LABS: INR 1.2 (0.9-1.1); Partial Thromboplastin Ratio 0.9; Partial Thromboplastin Time 23.6 Seconds (21.0-31.0); Prothrombin Time 11.9 Seconds (9.0-12.0)
[2019-01-17 03:57] LABS: Albumin Globulin Ratio 1.2 (0.9-2); Albumin Level 3.5 gm/dl (3.4-5.0); BUN Creatinine Ratio 8.3 (10-20); Bilirubin,Total 1.7 mg/dl (0.2-1); Calcium 8.4 mg/dl (8.5-10.1); Creatinine Clr Calc Pharmacy 99.9 ml/min; Est GFR (African American) 108.7; Est GFR (Non-African American) 93.8; Total Protein 6.5 gm/dl (6.4-8.2)
[2019-01-17 04:03] LABS: Mean Platelet Volume 11.3 fL (7.4-10.4); Platelet Count 80 K/uL (130-400)
[2019-01-17 04:23] LABS: Basophils # (auto) 0.01 K/uL (0-0.2); Basophils % (auto) 0.2 %; Immature Granulocytes # (auto) 0.02 K/uL (0.00-0.02); Immature Granulocytes % (auto) 0.3 %; Lymphocytes # (auto) 1.18 K/uL (1.2-3.4); Lymphocytes % (auto) 18.6 %; Monocytes # (auto) 0.57 K/uL (0.11-0.59); Neutrophils # (auto) 4.57 K/uL (1.4-6.5); Neutrophils % (auto) 71.9 %
--- NOTE | 2019-01-17 04:29 | Emergency Department Note ---
History of Present Illness General Chief complaint: Diarrhea Stated complaint: DIARRHEA Time Seen by Provider: 01/16/19 22:03 History of Present Illness Maximum Pain Intensity: 7 This is a 53-year-old female presenting to the emergency department for evaluation generalized weakness and diarrhea worsening over the past 4 days. 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 The patient states that she has a history of C. difficile approximately 1 year ago, where she was admitted to this facility for 7 days. The patient has not been on recent antibiotics, nor does she explain recent travel history. The patient is having diarrhea roughly every hour, as well as every time she eats. The patient has had difficulty getting out of bed because of her symptoms. She is concerned for dehydration as she becomes lightheaded with standing and moving. She does not report significant head, neck, chest, or abdominal pain. She has not taken anything [id number] for her symptoms. She rates her current discomfort 7/10. Home Medications Home Medications Medication Instructions Recorded Confirmed Type gabapentin [Neurontin] 400 mg PO QAM 09/19/18 01/16/19 History sertraline [Zoloft] 200 mg PO DAILY 09/19/18 01/16/19 History ergocalciferol (vitamin D2) 50,000 unit PO WK 01/16/19 01/16/19 History lorazepam 1 mg PO BID PRN 01/16/19 01/16/19 History lubiprostone [Amitiza] 8 mcg PO BID 01/16/19 01/16/19 History Allergies Allergy/AdvReac Type Severity Reaction Status Date / Time No Known Allergies Allergy Verified 01/16/19 22:40 Past Med/Surg History Medical History Anxiety (Chronic) Prolapse of intestine (Resolved) Pancreatitis, acute (Resolved) SVT (supraventricular tachycardia) (Resolved) Surgical History H/O: hysterectomy (Resolved) Social History Preferred Language: Hebrew Communication Ability: Effective Beliefs That Will Affect Care: None Current Living Situation: Spouse Other Information That Helps Us Care for You: No Feels Safe at Home: Yes Safety Concerns: Feels Safe At This Time Smoking Status: Never smoker Do You Dip or Chew Tobacco: No Second Hand Ex posure: No Tobacco Cessation Education Requested by Patient: No Hx Alcohol Use: Yes Alcohol type: beer and wine Hx Substance Use: No Review of Systems A total of 10 systems reviewed and were otherwise negative Physical Exam Vital Signs Vital Signs - 24 hr 01/16/19 21:41 01/16/19 22:17 01/16/19 22:51 Temperature Source Oral Sepsis Recent Fever Within 48 Hours No Sepsis Action Taken by Nursing No Action Required Pulse Rate 143 H 125 H Pulse Rate [Right] Pulse Rhythm [Right] Pulse Strength [Right] Respiratory Rate 20 28 H Respiratory Effort / Characteristics Non-Labored Spontaneous Respiratory Depth Normal Blood Pressure 131/84 97/68 L Blood Pressure [Right Arm] Blood Pressure Mean 99 77 Blood Pressure Mean [Right Arm] Blood Pressure Position [Right Arm] Pulse Oximetry 99 98 Oxygen Delivery Method Room Air Room Air 01/16/19 23:23 01/17/19 00:44 01/17/19 01:09 Temperature Source Sepsis Recent Fever Within 48 Hours Sepsis Action Taken by Nursing Pulse Rate Pulse Rate [Right] 125 H 122 H 119 H Pulse Rhythm [Right] Regular Regular Regular Pulse Strength [Right] Normal Normal Normal Respiratory Rate 18 20 24 Respiratory Effort / Characteristics Non-Labored Spontaneous Non-Labored Spontaneous Non-Labored Spontaneous Respiratory Depth Normal Normal Normal Blood Pressure Blood Pressure [Right Arm] 130/66 114/69 131/79 Blood Pressure Mean Blood Pressure Mean [Right Arm] 87 84 96 Blood Pressure Position [Right Arm] Lying Pulse Oximetry 98 98 99 Oxygen Delivery Method Room Air Room Air Room Air VITALS: Vitals are noted on the nurse's note and reviewed by myself. Vital signs with tachycardia, tachypnea, and borderline low blood pressure at 97/68 GENERAL: Ill-appearing female who is cooperative with the examination. HEAD: Normocephalic atraumatic. EARS: External ear normal. External auditory canals clear, tympanic membranes pearly oliva without erythema or effusion bilaterally. EYES: Pupils equal round and reactive to light and accommodation. Conjunctivae without injection, sclerae without icterus. Extraocular movements intact. NOSE: Patent, turbinates without inflammation or discharge. MOUTH: Mucous membranes moist. Tonsils are not enlarged. Pharynx without e rythema, blood, or exudate. Uvula midline. Airway patent. Mucous membranes dry NECK: Supple without nuchal rigidity. No lymphadenopathy. No thyromegaly. HEART: Regular rate and rhythm without murmurs gallops or rubs. LUNGS: Clear to auscultation bilaterally without wheezes, rales or rhonchi. No retractions or accessory muscle use. ABDOMEN: Positive normal bowel sounds x 4. Soft, nontender, without masses or organomegaly MUSCULOSKELETAL: No muscle atrophy, erythema, or edema noted. Full range of motion in all extremities. NEURO: Patient was alert and oriented to person place and time. CN II through XII grossly intact. SKIN: The skin was without rashes, erythema, edema, or bruising. Capillary refill less than 2 seconds. Course Administered Medications Potassium Chloride/Sodium Chloride (Normal Saline W/20 Meq Kcl) 20 meq in 1,000 mls @ 200 mls/hr IV .Q5H [facility] Stop: 02/16/19 02:35 Last Admin: 01/17/19 02:51 Dose: 200 mls/hr Documented by: [id number] Potassium Chloride (K Tristen / Wtr) 10 meq in 100 mls @ 100 mls/hr IV Q1H [facility] Stop: 01/17/19 06:15 Last Admin: 01/17/19 04:48 Dose: 100 mls/hr Documented by: [id number] Ioversol (Optiray 320 100ml) 94 ml IV ONCE PRN PRN Reason: Interaction Checking Stop: 01/21/19 01:12 Last Admin: 01/17/19 01:13 Dose: 94 ml Documented by: [id number] Discontinued Medications Sodium Chloride (Nss 1000ml) 1,000 mls @ 999 mls/hr IV .Q1H1M [facility] Stop: 01/17/19 00:18 Last Infusion: 01/17/19 00:28 Dose: 0 mls/hr Documented by: [id number] Admin: 01/16/19 23:14 Dose: 999 mls/hr Documented by: [id number] Infusion: 01/16/19 23:14 Dose: 999 mls/hr Documented by: [id number] Admin: 01/16/19 22:48 Dose: 999 mls/hr Documented by: [id number] Sodium Chloride (Nss 1000ml) 1,000 mls @ 999 mls/hr IV .Q1H1M [facility] Stop: 01/17/19 00:15 Last Infusion: 01/17/19 01:21 Dose: 0 mls/hr Documented by: [id number] Admin: 01/17/19 00:19 Dose: 999 mls/hr Documented by: [id number] Potassium Chloride (K Tristen / Wtr) 10 meq in 100 mls @ 100 mls/hr IV Q1H [facility] Stop: 01/17/19 01:14 Last Infusion: 01/17/19 01:20 Dose: 0 mls/hr Documented by: [id number] Admin: 01/17/19 00:19 Dose: 100 mls/hr Documented by: [id number] Infusion: 01/17/19 00:18 Dose: 0 mls/hr Documented by: [id number] Admin: 01/16/19 23:13 Dose: 100 mls/hr Documented by: [id number] Magnesium Sulfate/Dextrose (Magnesium Sulfate / D5w) 1 gm in 100 mls @ 100 mls/hr IV ONE ONE Stop: 01/17/19 00:07 Last Infusion: 01/17/19 00:18 Dose: 0 mls/hr Documented by: [id number] Admin: 01/16/19 23:13 Dose: 100 mls/hr Documented by: [id number] Magnesium Sulfate/Dextrose (Magnesium Sulfate / D5w) 1 gm in 100 mls @ 100 mls/hr IV Q1H [facility] Stop: 01/17/19 04:29 Last Admin: 01/17/19 04:06 Dose: 100 mls/hr Documented by: [id number] Infusion: 01/17/19 03:51 Dose: 100 mls/hr Documented by: [id number] Admin: 01/17/19 02:51 Dose: 100 mls/hr Documented by: [id number] Morphine Sulfate (Morphine Sulfate) 2 mg IV NOW STA Stop: 01/16/19 22:17 Last Admin: 01/16/19 22:49 Dose: 2 mg Documented by: [id number] Ondansetron HCl (Zofran) 4 mg IV NOW STA Stop: 01/16/19 22:17 Last Admin: 01/16/19 22:49 Dose: 4 mg Documented by: [id number] Ondansetron HCl (Zofran) 4 mg IV NOW STA Stop: 01/17/19 00:40 Last Admin: 01/17/19 00:44 Dose: 4 mg Documented by: [id number] Medical Decision Making Differential Diagnosis Differential includes diarrheal illness, electrolyte or metabolic abnormality, acute coronary syndrome, myocardial infarction, CVA, TIA, anemia, infection, pneumonia, UTI, pyelonephritis, poor nutrition, dehydration,,hypoglycemia, and others Laboratory Data Result diagrams: 01/17/19 02:56 01/17/19 02:56 Lab Results 01/16/19 01/16/19 01/16/19 Range/Units 22:24 22:24 23:20 WBC 7.56 (4.8-10.8) K/uL RBC 4.39 (4.2-5.4) M/uL Hgb 15.2 (12.0-16.0) g/dL Hct 41.2 (37-47) % MCV 93.8 (80-100) fL MCH 34.6 H (25-34) pg MCHC 36.9 H (32-36) g/dL Plt Count 81 L (130-400) K/uL Immature Gran % (Auto) 0.1 % Neut % (Auto) 78.6 % Lymph % (Auto) 15.5 % [place] % (Auto) 5.7 % Eos % (Auto) 0.1 % Baso % (Auto) 0.0 % Immature Gran # (Auto) 0.01 (0.00-0.02) K/uL Neut # (Auto) 5.94 (1.4-6.5) K/uL Lymph # (Auto) 1.17 L (1.2-3.4) K/uL [place] # (Auto) 0.43 (0.11-0.59) K/uL Eos # (Auto) 0.01 (0-0.5) K/uL Baso # (Auto) 0.00 (0-0.2) K/uL Platelet Estimate Decreased L (Normal) RBC Morphology Unremarkable Sodium 127 L (136-145) mmol/L Potassium 2.0 L* (3.5-5.1) mmol/L Chloride 83 L (98-107) mmol/L Carbon Dioxide 27 (21-32) mmol/L Anion Gap 18.0 H (3-11) BUN 9 (7-18) mg/dl Creatinine 1.07 (0.6-1.2) mg/dl Est Cr Clr Drug Dosing 68.1 ml/min Est GFR ( Amer) 69.6 Est GFR (Non-Af Amer) 60.1 BUN/Creatinine Ratio 7.9 L (10-20) Glucose 153 H (70-99) mg/dl Calcium 9.6 (8.5-10.1) mg/dl Magnesium 1.1 L (1.8-2.4) mg/dl Total Bilirubin 1.6 H (0.2-1) mg/dl AST 598 H (15-37) U/L ALT 327 H (12-78) U/L Alkaline Phosphatase 211 H (45-117) U/L Ammonia Troponin I 0.025 (0-0.045) ng/ml Total Protein 8.2 (6.4-8.2) gm/dl Albumin 4.2 (3.4-5.0) gm/dl Globulin 4.0 (2.5-4.0) gm/dl Albumin/Globulin Ratio 1.1 (0.9-2) Lipase 392 (73-393) U/L TSH 4.800 H (0.300-4.500) uIu/ml Free T4 1.44 (0.8-1.6) ng/dl Urine Color Urine Appearance (Clear) Urine pH (4.5-7.5) Ur Specific [place] (1.000-1.030) Urine Protein (Negative) Urine Glucose (UA) (Negative) Urine Ketones (Negative) Urine Blood (Negative) Urine Nitrite (Negative) Urine Bilirubin (Negative) Urine Urobilinogen (Negative) Ur Leukocyte Esterase (Negative) Urine WBC (Auto) (0-5) /hpf Urine RBC (Auto) (0-4) /hpf U Hyaline Cast (Auto) (0-5) /lpf U Epithel Cells (Auto) (0-5) /lpf Urine Bacteria (Auto) (Negative) Stl C. diff Tox B Gene TNP Urine Opiates Screen (Neg) Ur Methadone, Qual (Neg) Urine Barbiturates (Neg) Ur Phencyclidine (PCP) (Neg) U Amphetamin/Meth Scrn (Neg) MDMA (Ecstasy) Screen (Neg) U Benzodiazepines Scrn (Neg) Ur Cocaine Metabolite (Neg) U Marijuana (THC) Screen (Neg) Hep Bs Antigen (Neg) Hep Bs Antibody Hep Bs Antibody, Quant (>or=10mIU/mL Immune) mIU/mL Hepatitis C Antibody (Neg) 01/17/19 01/17/19 01/17/19 Range/Units 00:42 00:42 01:05 WBC (4.8-10.8) K/uL RBC (4.2-5.4) M/uL Hgb (12.0-16.0) g/dL Hct (37-47) % MCV (80-100) fL MCH (25-34) pg MCHC (32-36) g/dL Plt Count (130-400) K/uL Immature Gran % (Auto) % Neut % (Auto) % Lymph % (Auto) % [place] % (Auto) % Eos % (Auto) % Baso % (Auto) % Immature Gran # (Auto) (0.00-0.02) K/uL Neut # (Auto) (1.4-6.5) K/uL Lymph # (Auto) (1.2-3.4) K/uL [place] # (Auto) (0.11-0.59) K/uL Eos # (Auto) (0-0.5) K/uL Baso # (Auto) (0-0.2) K/uL Platelet Estimate (Normal) RBC Morphology Sodium (136-145) mmol/L Potassium (3.5-5.1) mmol/L Chloride (98-107) mmol/L Carbon Dioxide (21-32) mmol/L Anion Gap (3-11) BUN (7-18) mg/dl Creatinine (0.6-1.2) mg/dl Est Cr Clr Drug Dosing ml/min Est GFR ( Amer) Est GFR (Non-Af Amer) BUN/Creatinine Ratio (10-20) Glucose (70-99) mg/dl Calcium (8.5-10.1) mg/dl Magnesium (1.8-2.4) mg/dl Total Bilirubin (0.2-1) mg/dl AST (15-37) U/L ALT (12-78) U/L Alkaline Phosphatase (45-117) U/L Ammonia Cancelled Troponin I (0-0.045) ng/ml Total Protein (6.4-8.2) gm/dl Albumin (3.4-5.0) gm/dl Globulin (2.5-4.0) gm/dl Albumin/Globulin Ratio (0.9-2) Lipase (73-393) U/L TSH (0.300-4.500) uIu/ml Free T4 (0.8-1.6) ng/dl Urine Color Yellow Urine Appearance Clear (Clear) Urine pH 7.5 (4.5-7.5) Ur Specific [place] 1.008 (1.000-1.030) Urine Protein Negative (Negative) Urine Glucose (UA) Negative (Negative) Urine Ketones Negative (Negative) Urine Blood 1+ H (Negative) Urine Nitrite Negative (Negative) Urine Bilirubin Negative (Negative) Urine Urobilinogen Negative (Negative) Ur Leukocyte Esterase Trace H (Negative) Urine WBC (Auto) 1-5 (0-5) /hpf Urine RBC (Auto) 5-10 H (0-4) /hpf U Hyaline Cast (Auto) 0 (0-5) /lpf U Epithel Cells (Auto) >30 H (0-5) /lpf Urine Bacteria (Auto) 3+ H (Negative) Stl C. diff Tox B Gene Urine Opiates Screen (Neg) Ur Methadone, Qual (Neg) Urine Barbiturates (Neg) Ur Phencyclidine (PCP) (Neg) U Amphetamin/Meth Scrn (Neg) MDMA (Ecstasy) Screen (Neg) U Benzodiazepines Scrn (Neg) Ur Cocaine Metabolite (Neg) U Marijuana (THC) Screen (Neg) Hep Bs Antigen Neg (Neg) Hep Bs Antibody Immune Hep Bs Antibody, Quant 12.08 (>or=10mIU/mL Immune) mIU/mL Hepatitis C Antibody Neg (Neg) 01/17/19 Range/Units 01:05 WBC (4.8-10.8) K/uL RBC (4.2-5.4) M/uL Hgb (12.0-16.0) g/dL Hct (37-47) % MCV (80-100) fL MCH (25-34) pg MCHC (32-36) g/dL Plt Count (130-400) K/uL Immature Gran % (Auto) % Neut % (Auto) % Lymph % (Auto) % [place] % (Auto) % Eos % (Auto) % Baso % (Auto) % Immature Gran # (Auto) (0.00-0.02) K/uL Neut # (Auto) (1.4-6.5) K/uL Lymph # (Auto) (1.2-3.4) K/uL [place] # (Auto) (0.11-0.59) K/uL Eos # (Auto) (0-0.5) K/uL Baso # (Auto) (0-0.2) K/uL Platelet Estimate (Normal) RBC Morphology Sodium (136-145) mmol/L Potassium (3.5-5.1) mmol/L Chloride (98-107) mmol/L Carbon Dioxide (21-32) mmol/L Anion Gap (3-11) BUN (7-18) mg/dl Creatinine (0.6-1.2) mg/dl Est Cr Clr Drug Dosing ml/min Est GFR ( Amer) Est GFR (Non-Af Amer) BUN/Creatinine Ratio (10-20) Glucose (70-99) mg/dl Calcium (8.5-10.1) mg/dl Magnesium (1.8-2.4) mg/dl Total Bilirubin (0.2-1) mg/dl AST (15-37) U/L ALT (12-78) U/L Alkaline Phosphatase (45-117) U/L Ammonia Troponin I (0-0.045) ng/ml Total Protein (6.4-8.2) gm/dl Albumin (3.4-5.0) gm/dl Globulin (2.5-4.0) gm/dl Albumin/Globulin Ratio (0.9-2) Lipase (73-393) U/L TSH (0.300-4.500) uIu/ml Free T4 (0.8-1.6) ng/dl Urine Color Urine Appearance (Clear) Urine pH (4.5-7.5) Ur Specific [place] (1.000-1.030) Urine Protein (Negative) Urine Glucose (UA) (Negative) Urine Ketones (Negative) Urine Blood (Negative) Urine Nitrite (Negative) Urine Bilirubin (Negative) Urine Urobilinogen (Negative) Ur Leukocyte Esterase (Negative) Urine WBC (Auto) (0-5) /hpf Urine RBC (Auto) (0-4) /hpf U Hyaline Cast (Auto) (0-5) /lpf U Epithel Cells (Auto) (0-5) /lpf Urine Bacteria (Auto) (Negative) Stl C. diff Tox B Gene Urine Opiates Screen Pos H (Neg) Ur Methadone, Qual Neg (Neg) Urine Barbiturates Neg (Neg) Ur Phencyclidine (PCP) Neg (Neg) U Amphetamin/Meth Scrn Neg (Neg) MDMA (Ecstasy) Screen Neg (Neg) U Benzodiazepines Scrn Neg (Neg) Ur Cocaine Metabolite Neg (Neg) U Marijuana (THC) Screen Neg (Neg) Hep Bs Antigen (Neg) Hep Bs Antibody Hep Bs Antibody, Quant (>or=10mIU/mL Immune) mIU/mL Hepatitis C Antibody (Neg) Imaging Data Radiologist's Impression: Preliminary Findings Only See Final Report For Complete Findings CT ABDOMEN & PELVIS With Contrast: Circumferential wall thickening of the distal esophagus with surrounding fat stranding is concerning for esophagitis. Malignancy is not excluded. Recommend clinical correlation. Small hiatal hernia. There is fat stranding and fluid surrounding the proximal stomach which could represent gastritis. The fat stranding and fluid also contacts the superior portion of the pancreatic body. Acute pancreatitis is also not excluded. Recommend correlation with lipase. No change in a 1.2 cm hyperdense lesion at the pancreatic tail/splenic hilum which is probably benign given stability. Hepatic steatosis. The bladder is distended. Recommend correlation with urinary output. Status post hysterectomy. No adnexal masses. Status post distal colon resection with intact anastomosis. No bowel wall thickening or obstruction. The appendix is not identified. Surgical clips in the cecum probably represent prior appendectomy. MDM Narrative Physical exam and history were performed. Nursing notes, EMR, and Medication List were personally reviewed. Patient appears to have weakness and diarrhea for the past 4 days. She does report a history of C. difficile, and on exam does appear ill and dehydrated. She is tachycardic with a borderline low blood pressure. IV access x2 was established and labs were obtained. The patient was given 2 L IV saline, 2 mg IV morphine, and 4 mg IV Zofran. Stool sample was collected and sent to the lab. The patient's blood work is as above and was reviewed. She does not have a significantly elevated white blood cell count. She is not anemic. Her electrolytes show a low potassium at 2.0 as well as a magnesium of 1.1. Both of these were repleted through the IV here in the department. The patient does have elevation of her LFTs, as well as a low platelet count. Her TSH is 4.8. INR is 1.2. Ammonia is normal. Urine is without obvious infection, but culture is pending. Urine drug screen is negative. Hepatitis panel was performed and also negative. Lipase is normal at 239. Total bilirubin is slightly elevated at 1.7. The case was discussed with my attending physician, Dr. Navarro, who remained involved in patient care and decision-making. The patient does not appear well for discharge home. Her blood pressure did improve after hydration, however she does continue to be somewhat tachycardic. The lab did not have enough of a sample to complete C. difficile testing, and we are awaiting another sample. I did discuss the case with the on-call hospitalist, Dr. Lockhart, who did agree to evaluate the patient. Recommendation was for CT scan of the abdomen and pelvis due to the elevated LFTs. CT scan was reviewed by myself and radiology, and does suggest esophagitis/gastritis, however a malignancy is not excluded. There is also concerned that she may have pancreatitis findings on imaging. Overall the patient does not appear well for discharge home. Please see Dr. Lockhart's dictation for further patient course, plan, and disposition. The chart was completed utilizing [employer] Speech Voice Recognition Software. Grammatical errors, random word insertions, pronoun errors, and incomplete sentences are an occasional consequence of this system due to software limitations, ambient noise, and hardware issues. Any formal questions or concerns about the content, text, or information contained within the body of this dictation should be directly addressed to the provider for clarification. . Impression & Plan Generalized weakness, Diarrhea, Hypokalemia, Hypomagnesemia, Transaminitis Discharge Plan Visit Data *Final* Discharge Date/Time: 01/17/19 02:06 Chief Complaint: Diarrhea Stated Complaint: DIARRHEA ED Provider: Rubén Navarro ED Midlevel Provider: Latrell Faye Discharge Problem: Generalized weakness, Diarrhea, Hypokalemia, Hypomagnesemia, Transaminitis Patient Disposition: Admitted As Inpatient Discharge Instructions Interventions: ED Discharge Assessment Last Done: 01/17/19 02:06 Discharge Problem: Diarrhea Qualifiers: Diarrhea type: unspecified type Qualified Code(s): R19.7 - Diarrhea, unspecified
[2019-01-17] MEDS: FAMOTIDINE 20 MG in SYRINGE 3 ML IV SCH ×2 (05:46→17:15)
[2019-01-17] MEDS: ONDANSETRON INJ 2 MG/ML 2 ML VIAL IV PRN ×2 (07:41→16:12)
--- NOTE | 2019-01-17 07:54 | CT Scan Report ---
CT OF THE ABDOMEN AND PELVIS WITH CONTRAST CLINICAL HISTORY: diarrhea. Elevated lft's COMPARISON STUDY: CT of the abdomen and pelvis April 16, 2017. TECHNIQUE: Following IV administration of 94 mL of Optiray-320, axial images of the abdomen and pelvi s were obtained from the lung bases to the proximal femurs. Images were reviewed in the axial, sagitt al, and coronal planes. IV contrast was administered without complication. Automated exposure contro l was utilized for the study. A dose lowering technique was utilized adhering to the principles of A JORDAN. CT DOSE: 572.20 mGy.cm FINDINGS: Imaged portions of the lower chest demonstrate a moderate sized hernia with wall thickening of the distal esophagus. There is mild adjacent infiltration. There is also infiltration adjacent to the proximal stomach and the body of the pancreas. There is no biliary or pancreatic ductal dilatati on. The splenic vein is patent. No pseudoaneurysm is identified on this non-CTA exam. A 1.2 cm pancre atic tail lesion shown on axial image 95 of 491. This has decreased in size since CT of April 16 17 when it measured 1.7 cm. No additional peripancreatic fluid collections are present. The liver is enlarged. There is marked fatty infiltration. The main, left and right portal veins are patent. The b owel is slightly hyperdense. There is no evidence for acute cholecystitis by CT. Marked distention of the bladder is noted. No pneumatosis, free air or portal venous gas is present. Sigmoid colon anasto mosis is noted. There is no evidence for a bowel obstruction. The appendix is likely surgically absen t. No suspicious osseous lesions are noted. IMPRESSION: 1. Infiltration of the upper abdomen, adjacent to the pancreas and the proximal stomach. This may ref lect acute pancreatitis or gastritis/peptic ulcer disease. 2. Moderate sized hiatal hernia with distal esophageal wall thickening which suggests esophagitis. 3. Interval decrease in size of a 1.2 cm pancreatic tail round focus since CT of April 16, 2017. Thi s is likely benign and favors an old pseudocyst. 4. Hepatomegaly and marked fatty infiltration of the liver. No biliary or pancreatic ductal dilatatio n. 5. Marked distention of the bladder. Electronically signed by: Fabio Roth M.D. 01/17/2019 7:53 AM
[2019-01-17] MEDS ORDERED: LUBIPROSTONE 8 MCG CAP PO SCH (09:00)
[2019-01-17] MEDS ORDERED: ONDANSETRON HCL 8 MG in DEXTROSE 5% 50 ML IV ONE (09:15)
[2019-01-17] MEDS: GABAPENTIN 400 MG CAP PO SCH (10:31)
[2019-01-17] MEDS: SERTRALINE HCL 100 MG TABLET PO SCH (10:31)
[2019-01-17 13:58] LABS: BUN Creatinine Ratio 5.3 (10-20); Calcium 7.3 mg/dl (8.5-10.1); Creatinine Clr Calc Pharmacy 95.3 ml/min; Magnesium 1.9 mg/dl (1.8-2.4); Potassium 2.3 mmol/L (3.5-5.1)
[2019-01-17 14:09] LABS: Phosphorus 0.7 mg/dl (2.5-4.9)
[2019-01-17] MEDS ORDERED: POTASSIUM PHOS 3 MMOL/1 ML INFUSION IV STA (14:18)
[2019-01-17] MEDS ORDERED: MAGNESIUM SULFATE / D5W 1 GM/100 ML BAG IV ONE (14:45)
[2019-01-17] MEDS ORDERED: POTASSIUM PHOSPHATE 40 MMOL in SODIUM CHLORIDE 0.9% 1000ML 1,000 ML IV ONE (14:45)
--- NOTE | 2019-01-17 16:35 | History & Physical Bridge Note ---
Date of Service January 17, 2019 History & Physical Bridge Note Pt is feeling somewhat improved. Diarrhea has slowed. Abd pain is better. Still with n/v. States she has been on amitiza for about 1 month. She was taking it as more of a PRN however and not the scheduled BID entered into the computer. She did take several doses though, last was about a week ago just prior to onset of abd sx/diarrhea. Noted for bloating Repeat BMP, Mg, Phos should marked K and phos levels Mg is just barely WNL Replace all and monitor Hold amitiza as this can cause severe diarrhea Utox neg
--- NOTE | 2019-01-17 17:10 | Gastrointestinal Consultation ---
Date of Consultation January 17, 2019 Assessment & Plan (1) Abnormal LFTs: LFTS better today. Could be from process causing n/v and diarrehea. Check hep A IgM. She states drinks minimal ETOH. Follow as outpt diarrhea--improved cdiff not accepted, cx pending abd pain--could be secondary to process causing n/v, diarrhea PUD/esophatisi on CT---PPI and outpt EGD unless she cannot tolerate po in which case can be done as inpt. thrombocytopenia--per hospitalits I am going off service and DR Tiwari is assuming GI caret tomorrow 01/18/19 at 0730. History of Present Illness Reason for Consultation: diarhea, elev LFTS Requesting Physician: Dr Cotto Attending Physician: Kathleen Garcia DO History of Present Illness cc diarrhea HPI Noted consult by DR Tiwari 2015 in which it was mentioned hx of ETOH pancreatiis. She states she has not seen GI as outpt.There is hx of Cdiff infection. Pt states she is normally constipated and takes Amitiza prn per her PCP but none 3 weeks. 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 Over last 4 day n/v, diarrhea, weakness, abd pain. On admit noted elevated LFTS, low plts on labs. CT a/p PUD vs pancreatisi (lipase normal) esophagitis, hepatometaly, fatty liver, moderate HH. She states n/v, abd pain and diarreha has improved so far. Cdiff sent but refected because of formed stool. Stool cx pending. Hep C abd neg, Hep B sAg neg and B s AB pos immune. Allergies Allergy/AdvReac Type Severity Reaction Status Date / Time No Known Allergies Allergy Verified 01/16/19 22:40 Home Medications Home Medications Medication Instructions Recorded Confirmed Type gabapentin [Neurontin] 400 mg PO QAM 09/19/18 01/16/19 History sertraline [Zoloft] 200 mg PO DAILY 09/19/18 01/16/19 History ergocalciferol (vitamin D2) 50,000 unit PO WK 01/16/19 01/16/19 History lorazepam 1 mg PO BID PRN 01/16/19 01/16/19 History lubiprostone [Amitiza] 8 mcg PO BID 01/16/19 01/16/19 History Patient History Medical History Anxiety (Chronic) Prolapse of intestine (Resolved) Pancreatitis, acute (Resolved) SVT (supraventricular tachycardia) (Resolved) Surgical History H/O: hysterectomy (Resolved) Social History Preferred Language: Uzbek Communication Ability: Effective Beliefs That Will Affect Care: None marital status: Current Living Situation: Spouse Other Information That Helps Us Care for You: No Feels Safe at Home: Yes Safety Concerns: Feels Safe At This Time Smoking Status: Never smoker Do You Dip or Chew Tobacco: No Second Hand Exposure: No Tobacco Cessation Education Requested by Patient: No Hx Alcohol Use: Yes Alcohol type: beer and wine Hx Substance Use: No Review of Systems Review of Systems: All systems reviewed & are unremarkable except as noted in HPI & below Physical Exam Constitutional: WD/WN, vitals as above Eyes: PERRL, conjunctivae normal, anicteric sclerae ENMT: external ear and nose normal, oropharynx normal Neck: normal visual inspection and trachea midline Respiratory: normal respiratory effort, lungs clear to auscultation Cardiovascular: RRR, no murmur, no edema Gastrointestinal (Abdomen): normal bowel sounds, soft, nontender, no hepatosplenomegaly Neurologic: PERRL, EOMI, accommodation nl, no face palsy, no dysarthria Psychiatric: A+Ox3, euthymic affect Results & Data Vital Signs (Past 12 Hours) Vital Signs Temp Pulse Pulse Resp BP Pulse Ox 01/17/19 15:42 36.2 C L 98 H 16 100/64 98 01/17/19 11:46 36.4 C L 106 H 18 102/71 96 01/17/19 08:00 109 H 01/17/19 06:44 37.0 C 102 H 18 110/71 93
[2019-01-17] MEDS: ACETAMINOPHEN 325 MG TAB PO PRN (17:16)
[2019-01-17] MEDS: PANTOprazole 40 MG TAB PO SCH (18:18)
[2019-01-18] MEDS: NSS + 20MEQ KCL 20 MEQ/1,000 ML BAG IV SCH ×5 (02:00→22:01)
[2019-01-18 05:54] LABS: Hematocrit (blood only) 30.9 % (37-47); Hemoglobin 10.9 g/dL (12.0-16.0); Mean Corpuscular Hgb Conc 35.3 g/dL (32-36); Mean Corpuscular Volume 98.1 fL (80-100); RDW Coefficient of Variation 13.2 % (11.5-14.5); RDW Standard Deviation 47.1 fL (36.4-46.3); Red Blood Count 3.15 M/uL (4.2-5.4)
[2019-01-18 05:56] LABS: Mean Platelet Volume 10.7 fL (7.4-10.4); Platelet Count 65 K/uL (130-400)
[2019-01-18 06:04] LABS: INR 1.2 (0.9-1.1)
[2019-01-18 06:29] LABS: Basophils # (auto) 0.01 K/uL (0-0.2); Basophils % (auto) 0.3 %; Eosinophils # (auto) 0.08 K/uL (0-0.5); Eosinophils % (auto) 2.1 %; Immature Granulocytes # (auto) 0.01 K/uL (0.00-0.02); Immature Granulocytes % (auto) 0.3 %; Lymphocytes # (auto) 1.65 K/uL (1.2-3.4); Lymphocytes % (auto) 42.3 %; Monocytes # (auto) 0.24 K/uL (0.11-0.59); Monocytes % (auto) 6.2 %; Neutrophils # (auto) 1.91 K/uL (1.4-6.5); Neutrophils % (auto) 48.8 %; RBC Morphology Unremarkable
[2019-01-18 06:30] LABS: Albumin Globulin Ratio 1.2 (0.9-2); Albumin Level 2.9 gm/dl (3.4-5.0); BUN Creatinine Ratio 5.3 (10-20); Bilirubin,Total 0.8 mg/dl (0.2-1); Calcium 7.2 mg/dl (8.5-10.1); Creatinine Clr Calc Pharmacy 158.2 ml/min; Est GFR (African American) 132.6; Est GFR (Non-African American) 114.4; Globulin 2.5 gm/dl (2.5-4.0); Potassium 2.9 mmol/L (3.5-5.1); Total Protein 5.4 gm/dl (6.4-8.2)
[2019-01-18] MEDS ORDERED: CALCIUM GLUCONATE 10% 1,000 MG in SODIUM CHLORIDE 0.9% 50 ML IV STA (08:15)
[2019-01-18] MEDS: PANTOprazole 40 MG TAB PO SCH (08:39)
[2019-01-18] MEDS: SERTRALINE HCL 100 MG TABLET PO SCH (08:39)
[2019-01-18] MEDS: GABAPENTIN 400 MG CAP PO SCH (08:39)
[2019-01-18] MEDS: POTASSIUM CHLORIDE / WTR 10 MEQ/100 ML PLCT IV SCH ×4 (08:51→11:54)
[2019-01-18] MEDS: ONDANSETRON INJ 2 MG/ML 2 ML VIAL IV PRN (10:08)
[2019-01-18] MEDS: CIPROFLOXACIN 400 MG/200 ML BAG IV SCH (16:21)
--- NOTE | 2019-01-18 16:55 | Progress Note ---
DATE: 01/18/2019 The patient reports that she is still having some diarrheal stools and dark urine. Her vital signs are normal. She is afebrile. Stool culture is negative so far. Urine culture is growing gram-negative rods. White count is 3.9, hemoglobin 10.9, platelets are 65,000. Potassium is improving to 2.9 today, creatinine 0.47. Phosphorus was low yesterday at 0.7. Magnesium was normal at 1.9. AST has gone from 447 to 301, ALT from 254 to 197 and alkaline phosphatase 162 to 126, all improving. Abdomen shows a low transverse scar. There is some tenderness over the urinary bladder. No masses or hepatosplenomegaly. IMPRESSION: The patient is having diarrhea and dark urine. She has gram-negative rods growing from her urine at this time. I suspect that she has urinary tract infection and the infection is probably contributing to her abnormal liver tests that she has underlying liver probably from alcohol. At this point, no hepatic intervention is necessary given the fact that her CT of her liver just showed some fatty infiltration. I will plan on starting her empirically on Cipro 400 mg twice a day for her urinary tract infection pending the results of her culture. We will continue to follow the patient during her hospitalization.
[2019-01-18] MEDS: POTASSIUM CHLORIDE PWD 20 MEQ PACK PO SCH (20:25)
--- NOTE | 2019-01-18 22:32 | Hospitalist Progress Note ---
Date of Service January 18, 2019 Assessment & Plan (1) Diarrhea: Differential includes C. difficile colitis, infectious colitis, cholecystitis, pancreatitis, hepatitis, food poisoning and others. Follow results of stool studies. C.diff studies are negative. Appreciate GI recommendations. Diarrhea, appears to be improving. Will monitor. (2) History of Clostridium difficile colitis: Stool was sent for C. difficile, however, there was not enough of a sample to run the test, which makes this diagnosis less likely. (3) Anxiety: Continue sertraline 200 mg p.o. daily and lorazepam 1 mg p.o. twice daily as needed. (4) Abnormal LFTs: LFTs were normal on 10/22/2017. Today's labs: AST 598, ALT 327, total bilirubin 1.6, and alk phos 211. Have added an acute hepatitis profile and CT of abdomen and pelvis. I have asked the ED to add a urine drug screen and alcohol level. CT report suggest possibilities including esophagitis and gastritis. Consult gastroenterology. Placed on famotidine 20 mg IV every 12 hours Hold Amitiza. Thrombocytopenia- Will check for ehrlichiosis and anaplasmosis. Platelets continue to drop. Will monitor. (5) Hypokalemia: Secondary to GI losses. Placed on NSS + KCl 20 mEq at 200 mils per hour. Remains low, will replace with oral potassium in addition (6) Hypomagnesemia: Secondary to GI losses. will recheck in AM. Spent 35 minutes in management of patient. Subjective 53 yo female reports that her diarrhea has improved in frequency but it remains very loose. And she had an accident today where she was not able to reach the bathroom. Review of Systems Review of Systems: All systems reviewed & are unremarkable except as noted in HPI & below Physical Exam Physical Exam: The patient is awake, alert and oriented 3, fatigued appearing, normocephalic and atraumatic, lying in bed and in no acute distress. HEENT--PERRL, EOMI, mucous membranes and oropharynx dry. Neck--supple. No JVD. No bruits. Thyroid normal, trachea midline, no adenopathy. Heart--normal S1 and S2. No murmurs, rubs or gallops. Lungs--clear bilaterally, no respiratory distress, no accessory muscle use. Abdomen--normal bowel sounds and soft. Extremities--no cyanosis or clubbing. No edema. There are good distal pulses b/l. Dermatologic--normal skin turgor, normal color, no abnormal lymph nodes, no rash. Neurologic--cranial nerves II through XII grossly intact. Rheumatologic--normal range of motion. Psychiatric--normal affect. Results & Data Vital Signs (Past 12 Hours) Vital Signs Temp Pulse Pulse Pulse Resp BP BP 01/18/19 18:35 36.7 C 92 H 24 123/80 01/18/19 16:00 36.5 C 102 H 80 18 125/84 01/18/19 15:25 36.8 C 92 H 16 121/77 01/18/19 11:46 36.6 C 85 18 115/74 Pulse Ox 01/18/19 18:35 97 01/18/19 16:00 100 01/18/19 15:25 96 01/18/19 11:46 99 (1) Diarrhea Diarrhea type: unspecified type Qualified Code(s): R19.7 - Diarrhea, unspecified
[2019-01-19] MEDS: ACETAMINOPHEN 325 MG TAB PO PRN (00:05)
[2019-01-19] MEDS: NSS + 20MEQ KCL 20 MEQ/1,000 ML BAG IV SCH ×2 (03:37→09:45)
[2019-01-19] MEDS: LORazepam 1 MG TAB PO PRN (03:49)
[2019-01-19] MEDS ORDERED: FAMOTIDINE 20MG/5ML IV PUSH IV STA (04:03)
[2019-01-19] MEDS: ACETAMINOPHEN 65 ML IV SCH ×3 (05:22→19:52)
[2019-01-19] MEDS: CIPROFLOXACIN 400 MG/200 ML BAG IV SCH (06:14)
[2019-01-19 07:45] LABS: Hematocrit (blood only) 31.9 % (37-47); Hemoglobin 10.9 g/dL (12.0-16.0); Mean Corpuscular Hgb Conc 34.2 g/dL (32-36); RDW Coefficient of Variation 13.5 % (11.5-14.5); RDW Standard Deviation 48.9 fL (36.4-46.3); Red Blood Count 3.19 M/uL (4.2-5.4); White Blood Count 3.74 K/uL (4.8-10.8)
[2019-01-19 08:01] LABS: INR 1.2 (0.9-1.1)
[2019-01-19] MEDS: GABAPENTIN 400 MG CAP PO SCH (08:06)
[2019-01-19] MEDS: PANTOprazole 40 MG TAB PO SCH (08:06)
[2019-01-19] MEDS: SERTRALINE HCL 100 MG TABLET PO SCH (08:07)
[2019-01-19] MEDS: POTASSIUM CHLORIDE PWD 20 MEQ PACK PO SCH (08:08)
[2019-01-19] MEDS ORDERED: Nursing to Pharmacy Communication ONE (08:18)
[2019-01-19 08:23] LABS: Albumin Level 2.9 gm/dl (3.4-5.0); BUN Creatinine Ratio 2.9 (10-20); Calcium 7.7 mg/dl (8.5-10.1); Creatinine Clr Calc Pharmacy 177.1 ml/min; Est GFR (African American) 137.5; Est GFR (Non-African American) 118.7; Magnesium 1.6 mg/dl (1.8-2.4); Potassium 3.7 mmol/L (3.5-5.1)
[2019-01-19 08:29] LABS: Bilirubin,Total 0.6 mg/dl (0.2-1); Globulin 2.8 gm/dl (2.5-4.0); Total Protein 5.7 gm/dl (6.4-8.2)
[2019-01-19] MEDS ORDERED: POTASSIUM CHLORIDE 20 MEQ TABCR PO SCH (09:00)
[2019-01-19 09:35] LABS: Basophils # (auto) 0.01 K/uL (0-0.2); Basophils % (auto) 0.3 %; Eosinophils # (auto) 0.11 K/uL (0-0.5); Eosinophils % (auto) 2.9 %; Immature Granulocytes # (auto) 0.02 K/uL (0.00-0.02); Immature Granulocytes % (auto) 0.5 %; Lymphocytes # (auto) 1.54 K/uL (1.2-3.4); Lymphocytes % (auto) 41.2 %; Mean Platelet Volume 10.3 fL (7.4-10.4); Monocytes # (auto) 0.33 K/uL (0.11-0.59); Monocytes % (auto) 8.8 %; Neutrophils # (auto) 1.73 K/uL (1.4-6.5); Neutrophils % (auto) 46.3 %; Platelet Count 59 K/uL (130-400); Platelet Estimate Decreased (Normal)
[2019-01-19] MEDS ORDERED: POTASSIUM PHOS 3 MMOL/1 ML INFUSION IV STA (12:19)
[2019-01-19] MEDS ORDERED: POTASSIUM PHOSPHATE 21 MMOL in SODIUM CHLORIDE 0.9% 500 ML IV SCH (12:45)
[2019-01-19] MEDS: MAGNESIUM OXIDE 400 MG TAB PO SCH ×2 (13:04→20:41)
[2019-01-19] MEDS: cephALEXin 500 MG CAP PO SCH ×2 (13:04→20:41)
--- NOTE | 2019-01-19 14:59 | Progress Note ---
DATE: 01/19/2019 SUBJECTIVE: The patient was having a lot more loose stools since yesterday. Today, her stools are kind of mushy and she has had 2 bowel movements, but says much more controlled. She has had no nausea and vomiting and is actually tolerating full liquids and is asking for solid food. Her liver tests continue to improve as her E. coli UTI is being treated with Cipro. I think her abnormal liver tests are reflection of her infection and her underlying fatty liver. PHYSICAL EXAMINATION: VITAL SIGNS: Normal. She is afebrile. ABDOMEN: Soft. There is still a little tenderness over urinary bladder area. IMPRESSION: The patient has a diarrheal illness which is improving. I plan on advancing her to a low-fiber diet. She will continue Cipro for UTI. Her liver tests continue to improve without further intervention. Hopefully, she will be able to switch to oral Cipro tomorrow and think about going home.
--- NOTE | 2019-01-19 22:50 | Hospitalist Progress Note ---
Date of Service January 19, 2019 Assessment & Plan (1) Diarrhea: Differential includes C. difficile colitis, infectious colitis, cholecystitis, pancreatitis, hepatitis, food poisoning and others. Follow results of stool studies. C.diff studies are negative. Appreciate GI recommendations. Diarrhea, appears to be improving. Will monitor. (2) History of Clostridium difficile colitis: Stool was sent for C. difficile, however, there was not enough of a sample to run the test, which makes this diagnosis less likely. (3) Anxiety: Continue sertraline 200 mg p.o. daily and lorazepam 1 mg p.o. twice daily as needed. (4) Abnormal LFTs: LFTs were normal on 10/22/2017. Today's labs: AST 598, ALT 327, total bilirubin 1.6, and alk phos 211. Have added an acute hepatitis profile and CT of abdomen and pelvis. I have asked the ED to add a urine drug screen and alcohol level. CT report suggest possibilities including esophagitis and gastritis. Consult gastroenterology. Placed on famotidine 20 mg IV every 12 hours Hold Amitiza. Thrombocytopenia- Will check for ehrlichiosis and anaplasmosis. Platelets continue to drop. Will monitor. (5) Hypokalemia: Secondary to GI losses. Potassium improved. (6) UTI (urinary tract infection): Unsure if patient has symptoms of a UTI. However, placed on antibiotics by senior application security consultant. Culture is pansentive and switched to cephalosporin. (7) Hypophosphatemia: remains low will replace. (8) Hypomagnesemia: Secondary to GI losses. will replace Spent 35 minutes in management of patient. Subjective 53 yo female reports that she continues to have loose stools, but only had about 2 episodes today. She also has multiple complaints during her hospital stay: one being that she did not like she was treated when she was cleaned by staff during her accident of diarrhea. She also was concerned about her fall she had from CT scan. She also states she was anxious last night due to fact that she lost her job and may have vomited her pills in the morning. Review of Systems Review of Systems: All systems reviewed & are unremarkable except as noted in HPI & below Physical Exam Physical Exam: The patient is awake, alert and oriented 3, fatigued appearing, normocephalic and atraumatic, lying in bed and in no acute distress. HEENT--PERRL, EOMI, mucous membranes and oropharynx dry. Neck--supple. No JVD. No bruits. Thyroid normal, trachea midline, no adenopathy. Heart--normal S1 and S2. No murmurs, rubs or gallops. Lungs--clear bilaterally, no respiratory distress, no accessory muscle use. Abdomen--normal bowel sounds and soft. Extremities--no cyanosis or clubbing. No edema. There are good distal pulses b/l. Dermatologic--normal skin turgor, normal color, no abnormal lymph nodes, no rash. Neurologic--cranial nerves II through XII grossly intact. Rheumatologic--normal range of motion. Psychiatric--normal affect. Results & Data Vital Signs (Past 12 Hours) Vital Signs Temp Pulse Resp BP Pulse Ox 01/19/19 16:03 36.6 C 83 17 131/84 98 (1) Diarrhea Diarrhea type: unspecified type Qualified Code(s): R19.7 - Diarrhea, unspecified
[2019-01-20] MEDS ORDERED: TRAMADOL HCL 50 MG TABLET PO STA (00:06)
[2019-01-20] MEDS ORDERED: TRAMADOL HCL 50 MG TABLET ONE (00:20)
[2019-01-20] MEDS: ACETAMINOPHEN 65 ML IV SCH ×3 (04:00→21:23)
[2019-01-20] MEDS: LORazepam 1 MG TAB PO PRN ×2 (07:20→22:35)
[2019-01-20] MEDS: SERTRALINE HCL 100 MG TABLET PO SCH (07:20)
[2019-01-20] MEDS: GABAPENTIN 400 MG CAP PO SCH (07:20)
[2019-01-20] MEDS: PANTOprazole 40 MG TAB PO SCH (07:20)
[2019-01-20] MEDS: MAGNESIUM OXIDE 400 MG TAB PO SCH ×2 (07:21→20:30)
[2019-01-20] MEDS: cephALEXin 500 MG CAP PO SCH ×2 (07:21→20:29)
[2019-01-20] MEDS ORDERED: POTASSIUM PHOS 3 MMOL/1 ML INFUSION IV STA (10:27)
[2019-01-20 10:28] LABS: Hydrocodone Urine NEGATIVE NG/ML (CUTOFF=50); Hydromor Urine NEGATIVE NG/ML (CUTOFF=50); Morphine Urine 242 NG/ML (CUTOFF=50); Norhydrocodone Conf Ur NEGATIVE NG/ML (CUTOFF=50); Noroxycodone Urine NEGATIVE NG/ML (CUTOFF=50); Oxycodone Urine NEGATIVE NG/ML (CUTOFF=50)
[2019-01-20] MEDS ORDERED: POTASSIUM PHOSPHATE 21 MMOL in SODIUM CHLORIDE 0.9% 500 ML IV ONE (10:45)
[2019-01-20] MEDS: MAGNESIUM SULFATE / D5W 1 GM/100 ML BAG IV SCH ×2 (11:05→12:05)
--- NOTE | 2019-01-20 13:00 | Progress Note ---
DATE: 01/20/2019 SUBJECTIVE: The patient is able to tolerate a low-fiber diet. She did have 4 mushy bowel movements yesterday, but none today so far. OBJECTIVE: VITAL SIGNS: Show blood pressure 141/92, pulse 102, temperature is 36.5. Stool culture final is negative for bacterial pathogens. Urine was positive for E. coli. She is on Cipro now. All of her laboratory tests are improving. Her white count is 3.74, hemoglobin 11.9, platelet count is 59,000. Phosphorus is little low today, still at 1.8, but coming up. Magnesium is 1.6. Liver tests are all improving. IMPRESSION: The patient's abnormal liver tests are probably in response to her infection and fatty liver. Diarrhea is improving, probably infectious in nature. She will continue to get her electrolytes corrected and hopefully be discharged tomorrow.
--- NOTE | 2019-01-20 23:05 | Hospitalist Progress Note ---
Date of Service January 20, 2019 Assessment & Plan (1) Diarrhea: Differential includes C. difficile colitis, infectious colitis, cholecystitis, pancreatitis, hepatitis, food poisoning and others. Follow results of stool studies. C.diff studies are negative. Appreciate GI recommendations. Diarrhea continues to be improving. Will monitor. Electrolytes appear to be improving as well. (2) History of Clostridium difficile colitis: Stool was sent for C. difficile, however, there was not enough of a sample to run the test, which makes this diagnosis less likely. (3) Anxiety: Continue sertraline 200 mg p.o. daily and lorazepam 1 mg p.o. twice daily as needed. (4) Abnormal LFTs: LFTs were normal on 10/22/2017. Today's labs: AST 598, ALT 327, total bilirubin 1.6, and alk phos 211. Have added an acute hepatitis profile and CT of abdomen and pelvis. I have asked the ED to add a urine drug screen and alcohol level. CT report suggest possibilities including esophagitis and gastritis. Consult gastroenterology. Placed on famotidine 20 mg IV every 12 hours Hold Amitiza. Thrombocytopenia- Will check for ehrlichiosis and anaplasmosis. Platelets continue to drop. Will monitor and recheck in AM. (5) Hypokalemia: Secondary to GI losses. Potassium improved. (6) UTI (urinary tract infection): Unsure if patient has symptoms of a UTI. However, placed on antibiotics by senior management consultant. Culture is pansentive and switched to cephalosporin. (7) Hypophosphatemia: remains low will replace again on 01/20 (8) Hypomagnesemia: Secondary to GI losses. will replace Spent 35 minutes in management of patient; this included discussion with patient as she was anxious. Subjective Patient reports her diarrhea is improving. She has not had a bowel movement this morning. Patient continues to feel intermittent anxiety. Patient denies any other symptoms today. Review of Systems Review of Systems: All systems reviewed & are unremarkable except as noted in HPI & below Physical Exam Physical Exam: The patient is awake, alert and oriented 3, fatigued appearing, normocephalic and atraumatic, lying in bed and in no acute distress. HEENT--PERRL, EOMI, mucous membranes and oropharynx dry. Neck--supple. No JVD. No bruits. Thyroid normal, trachea midline, no adenopathy. Heart--normal S1 and S2. No murmurs, rubs or gallops. Lungs--clear bilaterally, no respiratory distress, no accessory muscle use. Abdomen--normal bowel sounds and soft. Extremities--no cyanosis or clubbing. No edema. There are good distal pulses b/l. Dermatologic--normal skin turgor, normal color, no abnormal lymph nodes, no rash. Neurologic--cranial nerves II through XII grossly intact. Rheumatologic--normal range of motion. Psychiatric--normal affect. Results & Data Vital Signs (Past 12 Hours) Vital Signs Temp Pulse Resp BP Pulse Ox 01/20/19 16:36 87 18 142/92 H 98 01/20/19 12:24 36.4 C L 80 18 150/94 H 100 (1) Diarrhea Diarrhea type: unspecified type Qualified Code(s): R19.7 - Diarrhea, unspeci fied
[2019-01-21] MEDS: ACETAMINOPHEN 65 ML IV SCH ×2 (04:16→13:08)
[2019-01-21 07:31] LABS: Hematocrit (blood only) 38.7 % (37-47); Hemoglobin 13.8 g/dL (12.0-16.0); Mean Corpuscular Hgb Conc 35.7 g/dL (32-36); Mean Corpuscular Volume 100.5 fL (80-100); Mean Platelet Volume 10.3 fL (7.4-10.4); Platelet Count 89 K/uL (130-400); RDW Standard Deviation 49.5 fL (36.4-46.3); Red Blood Count 3.85 M/uL (4.2-5.4); White Blood Count 4.38 K/uL (4.8-10.8)
[2019-01-21 08:00] LABS: Albumin Level 3.4 gm/dl (3.4-5.0); BUN Creatinine Ratio 5.5 (10-20); Calcium 8.7 mg/dl (8.5-10.1); Creatinine Clr Calc Pharmacy 151.8 ml/min; Est GFR (African American) 130.7; Est GFR (Non-African American) 112.8; Magnesium 2.3 mg/dl (1.8-2.4)
[2019-01-21 08:06] LABS: Bilirubin Direct 0.3 mg/dl (0-0.2); Bilirubin,Total 0.5 mg/dl (0.2-1); Phosphorus 3.1 mg/dl (2.5-4.9); Total Protein 6.7 gm/dl (6.4-8.2)
[2019-01-21] MEDS: cephALEXin 500 MG CAP PO SCH (08:34)
[2019-01-21] MEDS: PANTOprazole 40 MG TAB PO SCH (08:34)
[2019-01-21] MEDS: GABAPENTIN 400 MG CAP PO SCH (08:34)
[2019-01-21] MEDS: MAGNESIUM OXIDE 400 MG TAB PO SCH (08:34)
[2019-01-21] MEDS: SERTRALINE HCL 100 MG TABLET PO SCH (08:34)
[2019-01-21 16:25] LABS: Anaplasma phagocytophila IgM <1:20 (<1:20); Ehrlichia chaff IgG Ab <1:64 (<1:64); Ehrlichia chaff IgM Ab <1:20 (<1:20)
--- NOTE | 2019-01-27 22:43 | Discharge Summary ---
Date of Service January 21, 2019 Admission HPI Per Admitting Provider The patient is a 53-year-old female with a past medical history including anxiety, C. difficile colitis and SVT who presents to the emergency department with 4 days of worsening abdominal discomfort and diarrhea. 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 She also notes generalized fatigue, lightheadedness and dizziness. Principal Diagnosis diarrhea Discharge Exam The patient is awake, alert and oriented 3, normocephalic and atraumatic, lying in bed and in no acute distress. HEENT--PERRL, EOMI, mucous membranes and oropharynx dry. Neck--supple. No JVD. No bruits. Thyroid normal, trachea midline, no adenopathy. Heart--normal S1 and S2. No murmurs, rubs or gallops. Lungs--clear bilaterally, no respiratory distress, no accessory muscle use. Abdomen--normal bowel sounds and soft. Extremities--no cyanosis or clubbing. No edema. There are good distal pulses b/l. Dermatologic--normal skin turgor, normal color, no abnormal lymph nodes, no rash. Neurologic--cranial nerves II through XII grossly intact. Rheumatologic--normal range of motion. Psychiatric--normal affect. Discharge Data Allergies Allergy/AdvReac Type Severity Reaction Status Date / Time No Known Allergies Allergy Verified 01/16/19 22:40 Consultations 01/17/19 00:37 ED Decision to Admit Stat 01/17/19 02:36 Consult Case Management - Discharge Planning Routine 01/17/19 05:15 Consult Gastroenterology Routine 01/19/19 12:58 Consult Patient Services Routine Ordered Studies 01/17/19 00:12 CT abd pelvis IV con only Urgent Hospital Course (1) Diarrhea: Differential includes C. difficile colitis, infectious colitis, cholecystitis, pancreatitis, hepatitis, food poisoning and others. Follow results of stool studies. C.diff studies are negative. Appreciate GI recommendations. Diarrhea continues to be improving. Will monitor. Electrolytes appear to be improving as well. On day of discharge, patient was back to her normal self, no longer having diarrhea. Labs also improved. (2) History of Clostridium difficile colitis: Stool was sent for C. difficile, however, there was not enough of a sample to run the test, which makes this diagnosis less likely. (3) Anxiety: Continue sertraline 200 mg p.o. daily and lorazepam 1 mg p.o. twice daily as needed. (4) Abnormal LFTs: LFTs were normal on 10/22/2017. Today's labs: AST 598, ALT 327, total bilirubin 1.6, and alk phos 211. Have added an acute hepatitis profile and CT of abdomen and pelvis. I have asked the ED to add a urine drug screen and alcohol level. CT report suggest possibilities including esophagitis and gastritis. Consult gastroenterology. Placed on famotidine 20 mg IV every 12 hours Hold Amitiza. Thrombocytopenia- Will check for ehrlichiosis and anaplasmosis. improved. (5) Hypokalemia: Secondary to GI losses. Potassium improved. (6) UTI (urinary tract infection): Unsure if patient has symptoms of a UTI. However, placed on antibiotics by category consultant. Culture is pansentive and switched to cephalosporin. (7) Hypophosphatemia: replaced (8) Hypomagnesemia: Secondary to GI losses. will replaced Total Time Total Time Spent Total Time Spent (In Minutes): 32 Discharge Plan Discharge Items Patient Disposition: Home - Self-Care Reason For Visit: ABNORMAL LFT'S, HYPOKALEMIA,HYPONATREMIA, DIARRHEA Discharge Diagnosis: Electrolyte imbalance/diarrhea Discharge Goals: Decrease discomfort Activity: Resume your previous activity Non-emergency contact: Primary Care Provider Call non-emergency contact if: you have any medication questions Follow-up/Referrals: Gerardo White III, MD [Primary Care Provider] - Diet: Regular Addtl Provider Instructions: You had diarrhea, likely from either a viral infection or from UTI. You are treated with an antibiotic and you need 3 more days or 6 doses more. Will discharge you as electrolytes have improved. Prescriptions: New cephalexin 500 mg Capsule 500 mg PO BID Qty: 6 RF: 0 pantoprazole 40 mg Tablet,Delayed Release (Dr/Ec) 40 mg PO QAM Qty: 30 RF: 0 Continued ergocalciferol (vitamin D2) 50,000 unit capsule 50,000 unit PO WK RF: 0 lorazepam 1 mg tablet 1 mg PO BID PRN (Reason: Anxiety) RF: 0 Amitiza 8 mcg capsule 8 mcg PO BID RF: 0 gabapentin [Neurontin] 400 mg Capsule 400 mg PO QAM RF: 0 sertraline [Zoloft] 100 mg tablet 200 mg PO DAILY RF: 0 Stand-Alone Forms: [facility] Discharge Orders: Discharge Order (Routine); Ordered 01/21/19 Ordered By: Lito Waters Admission Data Admit Date/Time: 01/17/19 01:50 Attending Provider: Lito Waters Admit Provider: Riki Carr Primary Care Provider: Gerardo White III Other Providers: Riki Carr ; Rj Tiwari Service: Medical Other Interventions: Discharge Summary Assessment (RN) Last Done: 01/21/19 14:28 DC Date/Time DO NOT enter until pt leaves facility: 01/21/19 16:15
--- NOTE | 2019-03-01 07:24 | Emergency Department Note ---
ED Provider Note I have personally spent greater than 30 minutes of critical care time in the direct management of this patient. This includes bedside care, interpretation of diagnostic studies, and testing, discussion with consultants, patient, and family members, and other required patient management activities. This 30 minutes is in excess of all separately billable procedures. Impression & Plan Generalized weakness, Diarrhea, Hypokalemia, Hypomagnesemia, Transaminitis Past Med/Surg History Medical History Anxiety (Chronic) Prolapse of intestine (Resolved) Pancreatitis, acute (Resolved) SVT (supraventricular tachycardia) (Resolved) Surgical History H/O: hysterectomy (Resolved) Social History Preferred Language: Ukrainian Communication Ability: Effective Beliefs That Will Affect Care: None marital status: Current Living Situation: Spouse Other Information That Helps Us Care for You: No Feels Safe at Home: Yes Safety Concerns: Feels Safe At This Time Smoking Status: Never smoker Do You Dip or Chew Tobacco: No Second Hand Exposu re: No Tobacco Cessation Education Requested by Patient: No Hx Alcohol Use: Yes Alcohol type: beer and wine Hx Substance Use: No Results & Data Laboratory Data Result diagrams: 01/21/19 07:11 01/21/19 07:11 Lab Results 01/16/19 01/16/19 01/16/19 Range/Units 22:24 22:24 23:20 WBC 7.56 (4.8-10.8) K/uL RBC 4.39 (4.2-5.4) M/uL Hgb 15.2 (12.0-16.0) g/dL Hct 41.2 (37-47) % MCV 93.8 (80-100) fL MCH 34.6 H (25-34) pg MCHC 36.9 H (32-36) g/dL Plt Count 81 L (130-400) K/uL Immature Gran % (Auto) 0.1 % Neut % (Auto) 78.6 % Lymph % (Auto) 15.5 % [place] % (Auto) 5.7 % Eos % (Auto) 0.1 % Baso % (Auto) 0.0 % Immature Gran # (Auto) 0.01 (0.00-0.02) K/uL Neut # (Auto) 5.94 (1.4-6.5) K/uL Lymph # (Auto) 1.17 L (1.2-3.4) K/uL [place] # (Auto) 0.43 (0.11-0.59) K/uL Eos # (Auto) 0.01 (0-0.5) K/uL Baso # (Auto) 0.00 (0-0.2) K/uL Platelet Estimate Decreased L (Normal) RBC Morphology Unremarkable Sodium 127 L (136-145) mmol/L Potassium 2.0 L* (3.5-5.1) mmol/L Chloride 83 L (98-107) mmol/L Carbon Dioxide 27 (21-32) mmol/L Anion Gap 18.0 H (3-11) BUN 9 (7-18) mg/dl Creatinine 1.07 (0.6-1.2) mg/dl Est Cr Clr Drug Dosing 68.1 ml/min Est GFR ( Amer) 69.6 Est GFR (Non-Af Amer) 60.1 BUN/Creatinine Ratio 7.9 L (10-20) Glucose 153 H (70-99) mg/dl Calcium 9.6 (8.5-10.1) mg/dl Magnesium 1.1 L (1.8-2.4) mg/dl Total Bilirubin 1.6 H (0.2-1) mg/dl AST 598 H (15-37) U/L ALT 327 H (12-78) U/L Alkaline Phosphatase 211 H (45-117) U/L Ammonia Troponin I 0.025 (0-0.045) ng/ml Total Protein 8.2 (6.4-8.2) gm/dl Albumin 4.2 (3.4-5.0) gm/dl Globulin 4.0 (2.5-4.0) gm/dl Albumin/Globulin Ratio 1.1 (0.9-2) Lipase 392 (73-393) U/L TSH 4.800 H (0.300-4.500) uIu/ml Free T4 1.44 (0.8-1.6) ng/dl Urine Color Urine Appearance (Clear) Urine pH (4.5-7.5) Ur Specific [place] (1.000-1.030) Urine Protein (Negative) Urine Glucose (UA) (Negative) Urine Ketones (Negative) Urine Blood (Negative) Urine Nitrite (Negative) Urine Bilirubin (Negative) Urine Urobilinogen (Negative) Ur Leukocyte Esterase (Negative) Urine WBC (Auto) (0-5) /hpf Urine RBC (Auto) (0-4) /hpf U Hyaline Cast (Auto) (0-5) /lpf U Epithel Cells (Auto) (0-5) /lpf Urine Bacteria (Auto) (Negative) Stl C. diff Tox B Gene TNP Urine Opiates Screen (Neg) U Codeine Confrm GC/MS (CUTOFF=50) NG/ML Ur Morphine (GC/MS) (CUTOFF=50) NG/ML Ur Hydrocodone (GC/MS) (CUTOFF=50) NG/ML Ur Norhydrocodone (CUTOFF=50) NG/ML Ur Noroxycodone (CUTOFF=50) NG/ML Urine Oxycodone (GC/MS) (CUTOFF=50) NG/ML U Oxymorphone GC/MS (CUTOFF=50) NG/ML Ur Methadone, Qual (Neg) Ur Hydromorphone (GC/MS) (CUTOFF=50) NG/ML Urine Barbiturates (Neg) Ur Phencyclidine (PCP) (Neg) U Amphetamin/Meth Scrn (Neg) MDMA (Ecstasy) Screen (Neg) U Benzodiazepines Scrn (Neg) Ur Cocaine Metabolite (Neg) U Marijuana (THC) Screen (Neg) Hep Bs Antigen (Neg) Hep Bs Antibody Hep Bs Antibody, Quant (>or=10mIU/mL Immune) mIU/mL Hepatitis C Antibody (Neg) 01/17/19 01/17/19 01/17/19 Range/Units 00:42 00:42 01:05 WBC (4.8-10.8) K/uL RBC (4.2-5.4) M/uL Hgb (12.0-16.0) g/dL Hct (37-47) % MCV (80-100) fL MCH (25-34) pg MCHC (32-36) g/dL Plt Count (130-400) K/uL Immature Gran % (Auto) % Neut % (Auto) % Lymph % (Auto) % [place] % (Auto) % Eos % (Auto) % Baso % (Auto) % Immature Gran # (Auto) (0.00-0.02) K/uL Neut # (Auto) (1.4-6.5) K/uL Lymph # (Auto) (1.2-3.4) K/uL [place] # (Auto) (0.11-0.59) K/uL Eos # (Auto) (0-0.5) K/uL Baso # (Auto) (0-0.2) K/uL Platelet Estimate (Normal) RBC Morphology Sodium (136-145) mmol/L Potassium (3.5-5.1) mmol/L Chloride (98-107) mmol/L Carbon Dioxide (21-32) mmol/L Anion Gap (3-11) BUN (7-18) mg/dl Creatinine (0.6-1.2) mg/dl Est Cr Clr Drug Dosing ml/min Est GFR ( Amer) Est GFR (Non-Af Amer) BUN/Creatinine Ratio (10-20) Glucose (70-99) mg/dl Calcium (8.5-10.1) mg/dl Magnesium (1.8-2.4) mg/dl Total Bilirubin (0.2-1) mg/dl AST (15-37) U/L ALT (12-78) U/L Alkaline Phosphatase (45-117) U/L Ammonia Cancelled Troponin I (0-0.045) ng/ml Total Protein (6.4-8.2) gm/dl Albumin (3.4-5.0) gm/dl Globulin (2.5-4.0) gm/dl Albumin/Globulin Ratio (0.9-2) Lipase (73-393) U/L TSH (0.300-4.500) uIu/ml Free T4 (0.8-1.6) ng/dl Urine Color Yellow Urine Appearance Clear (Clear) Urine pH 7.5 (4.5-7.5) Ur Specific [place] 1.008 (1.000-1.030) Urine Protein Negative (Negative) Urine Glucose (UA) Negative (Negative) Urine Ketones Negative (Negative) Urine Blood 1+ H (Negative) Urine Nitrite Negative (Negative) Urine Bilirubin Negative (Negative) Urine Urobilinogen Negative (Negative) Ur Leukocyte Esterase Trace H (Negative) Urine WBC (Auto) 1-5 (0-5) /hpf Urine RBC (Auto) 5-10 H (0-4) /hpf U Hyaline Cast (Auto) 0 (0-5) /lpf U Epithel Cells (Auto) >30 H (0-5) /lpf Urine Bacteria (Auto) 3+ H (Negative) Stl C. diff Tox B Gene Urine Opiates Screen (Neg) U Codeine Confrm GC/MS (CUTOFF=50) NG/ML Ur Morphine (GC/MS) (CUTOFF=50) NG/ML Ur Hydrocodone (GC/MS) (CUTOFF=50) NG/ML Ur Norhydrocodone (CUTOFF=50) NG/ML Ur Noroxycodone (CUTOFF=50) NG/ML Urine Oxycodone (GC/MS) (CUTOFF=50) NG/ML U Oxymorphone GC/MS (CUTOFF=50) NG/ML Ur Methadone, Qual (Neg) Ur Hydromorphone (GC/MS) (CUTOFF=50) NG/ML Urine Barbiturates (Neg) Ur Phencyclidine (PCP) (Neg) U Amphetamin/Meth Scrn (Neg) MDMA (Ecstasy) Screen (Neg) U Benzodiazepines Scrn (Neg) Ur Cocaine Metabolite (Neg) U Marijuana (THC) Screen (Neg) Hep Bs Antigen Neg (Neg) Hep Bs Antibody Immune Hep Bs Antibody, Quant 12.08 (>or=10mIU/mL Immune) mIU/mL Hepatitis C Antibody Neg (Neg) 01/17/19 01/17/19 Range/Units 01:05 01:05 WBC (4.8-10.8) K/uL RBC (4.2-5.4) M/uL Hgb (12.0-16.0) g/dL Hct (37-47) % MCV (80-100) fL MCH (25-34) pg MCHC (32-36) g/dL Plt Count (130-400) K/uL Immature Gran % (Auto) % Neut % (Auto) % Lymph % (Auto) % [place] % (Auto) % Eos % (Auto) % Baso % (Auto) % Immature Gran # (Auto) (0.00-0.02) K/uL Neut # (Auto) (1.4-6.5) K/uL Lymph # (Auto) (1.2-3.4) K/uL [place] # (Auto) (0.11-0.59) K/uL Eos # (Auto) (0-0.5) K/uL Baso # (Auto) (0-0.2) K/uL Platelet Estimate (Normal) RBC Morphology Sodium (136-145) mmol/L Potassium (3.5-5.1) mmol/L Chloride (98-107) mmol/L Carbon Dioxide (21-32) mmol/L Anion Gap (3-11) BUN (7-18) mg/dl Creatinine (0.6-1.2) mg/dl Est Cr Clr Drug Dosing ml/min Est GFR ( Amer) Est GFR (Non-Af Amer) BUN/Creatinine Ratio (10-20) Glucose (70-99) mg/dl Calcium (8.5-10.1) mg/dl Magnesium (1.8-2.4) mg/dl Total Bilirubin (0.2-1) mg/dl AST (15-37) U/L ALT (12-78) U/L Alkaline Phosphatase (45-117) U/L Ammonia Troponin I (0-0.045) ng/ml Total Protein (6.4-8.2) gm/dl Albumin (3.4-5.0) gm/dl Globulin (2.5-4.0) gm/dl Albumin/Globulin Ratio (0.9-2) Lipase (73-393) U/L TSH (0.300-4.500) uIu/ml Free T4 (0.8-1.6) ng/dl Urine Color Urine Appearance (Clear) Urine pH (4.5-7.5) Ur Specific [place] (1.000-1.030) Urine Protein (Negative) Urine Glucose (UA) (Negative) Urine Ketones (Negative) Urine Blood (Negative) Urine Nitrite (Negative) Urine Bilirubin (Negative) Urine Urobilinogen (Negative) Ur Leukocyte Esterase (Negative) Urine WBC (Auto) (0-5) /hpf Urine RBC (Auto) (0-4) /hpf U Hyaline Cast (Auto) (0-5) /lpf U Epithel Cells (Auto) (0-5) /lpf Urine Bacteria (Auto) (Negative) Stl C. diff Tox B Gene Urine Opiates Screen Pos H (Neg) U Codeine Confrm GC/MS NEGATIVE (CUTOFF=50) NG/ML Ur Morphine (GC/MS) 242 A (CUTOFF=50) NG/ML Ur Hydrocodone (GC/MS) NEGATIVE (CUTOFF=50) NG/ML Ur Norhydrocodone NEGATIVE (CUTOFF=50) NG/ML Ur Noroxycodone NEGATIVE (CUTOFF=50) NG/ML Urine Oxycodone (GC/MS) NEGATIVE (CUTOFF=50) NG/ML U Oxymorphone GC/MS NEGATIVE (CUTOFF=50) NG/ML Ur Methadone, Qual Neg (Neg) Ur Hydromorphone (GC/MS) NEGATIVE (CUTOFF=50) NG/ML Urine Barbiturates Neg (Neg) Ur Phencyclidine (PCP) Neg (Neg) U Amphetamin/Meth Scrn Neg (Neg) MDMA (Ecstasy) Screen Neg (Neg) U Benzodiazepines Scrn Neg (Neg) Ur Cocaine Metabolite Neg (Neg) U Marijuana (THC) Screen Neg (Neg) Hep Bs Antigen (Neg) Hep Bs Antibody Hep Bs Antibody, Quant (>or=10mIU/mL Immune) mIU/mL Hepatitis C Antibody (Neg) Administered Medications Discontinued Medications Acetaminophen (Tylenol) 650 mg PO Q4H PRN PRN Reason: Pain Stop: 02/16/19 17:01 Last Admin: 01/19/19 00:05 Dose: 650 mg Documented by: [id number] Admin: 01/17/19 17:16 Dose: 650 mg Documented by: [id number] Cephalexin HCl (Keflex) 500 mg PO BID MOSES Stop: 01/24/19 10:09 Last Admin: 01/21/19 08:34 Dose: 500 mg Documented by: [id number] Admin: 01/20/19 20:29 Dose: 500 mg Documented by: [id number] Admin: 01/20/19 07:21 Dose: 500 mg Documented by: [id number] Admin: 01/19/19 20:41 Dose: 500 mg Documented by: [id number] Admin: 01/19/19 13:04 Dose: 500 mg Documented by: [id number] Famotidine (Pepcid 20mg Iv Push) 20 mg IV ONE STA Stop: 01/19/19 04:04 Last Admin: 01/19/19 05:19 Dose: 20 mg Documented by: [id number] Gabapentin (Neurontin) 400 mg PO QAM MOSES Stop: 02/16/19 08:59 Last Admin: 01/21/19 08:34 Dose: 400 mg Documented by: [id number] Admin: 01/20/19 07:20 Dose: 400 mg Documented by: [id number] Admin: 01/19/19 08:06 Dose: 400 mg Documented by: [id number] Admin: 01/18/19 08:39 Dose: 400 mg Documented by: [id number] Admin: 01/17/19 10:31 Dose: 400 mg Documented by: [id number] Sodium Chloride (Nss 1000ml) 1,000 mls @ 999 mls/hr IV .Q1H1M MOSES Stop: 01/17/19 00:18 Last Infusion: 01/17/19 00:28 Dose: 0 mls/hr Documented by: [id number] Admin: 01/16/19 23:14 Dose: 999 mls/hr Documented by: [id number] Infusion: 01/16/19 23:14 Dose: 999 mls/hr Documented by: [id number] Admin: 01/16/19 22:48 Dose: 999 mls/hr Documented by: [id number] Sodium Chloride (Nss 1000ml) 1,000 mls @ 999 mls/hr IV .Q1H1M MOSES Stop: 01/17/19 00:15 Last Infusion: 01/17/19 01:21 Dose: 0 mls/hr Documented by: [id number] Admin: 01/17/19 00:19 Dose: 999 mls/hr Documented by: [id number] Potassium Chloride (K Tristen / Wtr) 10 meq in 100 mls @ 100 mls/hr IV Q1H [facility]ES Stop: 01/17/19 01:14 Last Infusion: 01/17/19 01:20 Dose: 0 mls/hr Documented by: [id number] Admin: 01/17/19 00:19 Dose: 100 mls/hr Documented by: [id number] Infusion: 01/17/19 00:18 Dose: 0 mls/hr Documented by: [id number] Admin: 01/16/19 23:13 Dose: 100 mls/hr Documented by: [id number] Magnesium Sulfate/Dextrose (Magnesium Sulfate / D5w) 1 gm in 100 mls @ 100 mls/hr IV ONE ONE Stop: 01/17/19 00:07 Last Infusion: 01/17/19 00:18 Dose: 0 mls/hr Documented by: [id number] Admin: 01/16/19 23:13 Dose: 100 mls/hr Documented by: [id number] Magnesium Sulfate/Dextrose (Magnesium Sulfate / D5w) 1 gm in 100 mls @ 100 mls/hr IV Q1H [facility]ES Stop: 01/17/19 04:29 Last Infusion: 01/17/19 05:30 Dose: 0 mls/hr Documented by: [id number] Admin: 01/17/19 04:06 Dose: 100 mls/hr Documented by: [id number] Infusion: 01/17/19 03:51 Dose: 100 mls/hr Documented by: [id number] Admin: 01/17/19 02:51 Dose: 100 mls/hr Documented by: [id number] Potassium Chloride/Sodium Chloride (Normal Saline W/20 Meq Kcl) 20 meq in 1,000 mls @ 200 mls/hr IV .Q5H MOSES Stop: 02/16/19 02:35 Last Infusion: 01/19/19 13:09 Dose: 0 mls/hr Documented by: [id number] Admin: 01/19/19 09:45 Dose: 200 mls/hr Documented by: [id number] Infusion: 01/19/19 09:34 Dose: 200 mls/hr Documented by: [id number] Infusion: 01/19/19 06:15 Dose: 200 mls/hr Documented by: [id number] Infusion: 01/19/19 05:18 Dose: 0 mls/hr Documented by: [id number] Admin: 01/19/19 03:37 Dose: 200 mls/hr Documented by: [id number] Infusion: 01/19/19 03:03 Dose: 0 mls/hr Documented by: [id number] Admin: 01/18/19 22:01 Dose: 200 mls/hr Documented by: [id number] Infusion: 01/18/19 22:01 Dose: 200 mls/hr Documented by: [id number] Admin: 01/18/19 17:02 Dose: 200 mls/hr Documented by: [id number] Infusion: 01/18/19 16:56 Dose: 200 mls/hr Documented by: [id number] Admin: 01/18/19 11:56 Dose: 200 mls/hr Documented by: [id number] Infusion: 01/18/19 11:56 Dose: 200 mls/hr Documented by: [id number] Admin: 01/18/19 07:14 Dose: 200 mls/hr Documented by: [id number] Infusion: 01/18/19 07:00 Dose: 200 mls/hr Documented by: [id number] Admin: 01/18/19 02:00 Dose: 200 mls/hr Documented by: [id number] Infusion: 01/18/19 01:49 Dose: 0 mls/hr Documented by: [id number] Infusion: 01/17/19 23:15 Dose: 200 mls/hr Documented by: [id number] Infusion: 01/17/19 16:08 Dose: 0 mls/hr Documented by: [id number] Admin: 01/17/19 12:44 Dose: 200 mls/hr Documented by: [id number] Infusion: 01/17/19 12:41 Dose: 200 mls/hr Documented by: [id number] Admin: 01/17/19 07:41 Dose: 200 mls/hr Documented by: [id number] Infusion: 01/17/19 07:41 Dose: 200 mls/hr Documented by: [id number] Admin: 01/17/19 02:51 Dose: 200 mls/hr Documented by: [id number] Potassium Chloride (K Tristen / Wtr) 10 meq in 100 mls @ 100 mls/hr IV Q1H [facility] Stop: 01/17/19 06:15 Last Infusion: 01/17/19 08:45 Dose: 0 mls/hr Documented by: [id number] Admin: 01/17/19 05:46 Dose: 100 mls/hr Documented by: [id number] Infusion: 01/17/19 05:46 Dose: 100 mls/hr Documented by: [id number] Admin: 01/17/19 04:48 Dose: 100 mls/hr Documented by: [id number] Famotidine 20 mg/ Syringe 5 mls @ 2.5 mls/min IV Q12H [facility] Stop: 02/16/19 05:59 Last Admin: 01/17/19 05:46 Dose: 2.5 mls/min Documented by: [id number] Ondansetron HCl 8 mg/ Dextrose 54 mls @ 216 mls/hr IV ONE ONE Stop: 01/17/19 09:29 Last Infusion: 01/17/19 10:23 Dose: 0 mls/hr Documented by: [id number] Admin: 01/17/19 09:22 Dose: 216 mls/hr Documented by: [id number] Magnesium Sulfate/Dextrose (Magnesium Sulfate / D5w) 1 gm in 100 mls @ 100 mls/hr IV ONE ONE Stop: 01/17/19 15:44 Last Infusion: 01/17/19 17:54 Dose: 0 mls/hr Documented by: [id number] Admin: 01/17/19 16:08 Dose: 100 mls/hr Documented by: [id number] Potassium Phosphate 40 mmol/ (Sodium Chloride) 1,013.3333 mls @ 150 mls/hr IV ONE ONE Stop: 01/17/19 21:30 Last Infusion: 01/17/19 23:10 Dose: 0 mls/hr Documented by: [id number] Admin: 01/17/19 15:12 Dose: 150 mls/hr Documented by: [id number] Potassium Chloride (K Tristen / Wtr) 10 meq in 100 mls @ 100 mls/hr IV Q1H [facility] Stop: 01/18/19 12:14 Last Infusion: 01/18/19 13:27 Dose: 0 mls/hr Documented by: [id number] Admin: 01/18/19 11:54 Dose: 100 mls/hr Documented by: [id number] Infusion: 01/18/19 11:54 Dose: 100 mls/hr Documented by: [id number] Admin: 01/18/19 10:58 Dose: 100 mls/hr Documented by: [id number] Infusion: 01/18/19 10:58 Dose: 100 mls/hr Documented by: [id number] Admin: 01/18/19 10:02 Dose: 100 mls/hr Documented by: [id number] Infusion: 01/18/19 09:51 Dose: 100 mls/hr Documented by: [id number] Admin: 01/18/19 08:51 Dose: 100 mls/hr Documented by: [id number] Calcium Gluconate 1,000 mg/ (Sodium Chloride) 60 mls @ 240 mls/hr IV NOW [facility] Stop: 01/18/19 08:29 Last Infusion: 01/18/19 09:17 Dose: 0 mls/hr Documented by: [id number] Admin: 01/18/19 08:45 Dose: 240 mls/hr Documented by: [id number] Ciprofloxacin (Cipro) 400 mg in 200 mls @ 100 mls/hr IV Q12@0500,1700 MOSES; Protocol Stop: 01/20/19 16:14 Last Infusion: 01/19/19 08:08 Dose: 0 mls/hr Documented by: [id number] Admin: 01/19/19 06:14 Dose: 100 mls/hr Documented by: [id number] Infusion: 01/18/19 18:33 Dose: 0 mls/hr Documented by: [id number] Admin: 01/18/19 16:21 Dose: 100 mls/hr Documented by: [id number] [facility] mls @ 200 mls/hr IV Q8H [facility] Stop: 02/18/19 03:59 Last Infusion: 01/21/19 13:28 Dose: 0 mls/hr Documented by: [id number] Admin: 01/21/19 13:08 Dose: 200 mls/hr Documented by: [id number] Infusion: 01/21/19 04:35 Dose: 0 mls/hr Documented by: [id number] Admin: 01/21/19 04:16 Dose: 200 mls/hr Documented by: [id number] Infusion: 01/20/19 21:46 Dose: 0 mls/hr Documented by: [id number] Admin: 01/20/19 21:23 Dose: 200 mls/hr Documented by: [id number] Infusion: 01/20/19 14:03 Dose: 0 mls/hr Documented by: [id number] Admin: 01/20/19 13:43 Dose: 200 mls/hr Documented by: [id number] Infusion: 01/20/19 04:25 Dose: 0 mls/hr Documented by: [id number] Admin: 01/20/19 04:00 Dose: 200 mls/hr Documented by: [id number] Infusion: 01/19/19 20:16 Dose: 0 mls/hr Documented by: [id number] Admin: 01/19/19 19:52 Dose: 200 mls/hr Documented by: [id number] Infusion: 01/19/19 13:28 Dose: 0 mls/hr Documented by: [id number] Admin: 01/19/19 13:04 Dose: 200 mls/hr Documented by: [id number] Infusion: 01/19/19 05:52 Dose: 0 mls/hr Documented by: [id number] Admin: 01/19/19 05:22 Dose: 200 mls/hr Documented by: [id number] Potassium Phosphate 21 mmol/ (Sodium Chloride) 507 mls @ 88 mls/hr IV TODAY@1245 [facility] Stop: 01/19/19 18:31 Last Infusion: 01/19/19 19:09 Dose: 0 mls/hr Documented by: [id number] Admin: 01/19/19 13:05 Dose: 88 mls/hr Documented by: [id number] Magnesium Sulfate/Dextrose (Magnesium Sulfate / D5w) 1 gm in 100 mls @ 100 mls/hr IV Q1H [facility] Stop: 01/20/19 12:44 Last Infusion: 01/20/19 13:27 Dose: 0 mls/hr Documented by: [id number] Admin: 01/20/19 12:05 Dose: 100 mls/hr Documented by: [id number] Infusion: 01/20/19 12:05 Dose: 100 mls/hr Documented by: [id number] Admin: 01/20/19 11:05 Dose: 100 mls/hr Documented by: [id number] Potassium Phosphate 21 mmol/ (Sodium Chloride) 507 mls @ 88 mls/hr IV ONE ONE Stop: 01/20/19 16:30 Last Infusion: 01/20/19 16:31 Dose: 0 mls/hr Documented by: [id number] Admin: 01/20/19 11:05 Dose: 88 mls/hr Documented by: [id number] Ioversol (Optiray 320 100ml) 94 ml IV ONCE PRN PRN Reason: Interaction Checking Stop: 01/21/19 01:12 Last Admin: 01/17/19 01:13 Dose: 94 ml Documented by: [id number] Lorazepam (Ativan) 1 mg PO BID PRN PRN Reason: Anxiety Stop: 02/16/19 02:35 Last Admin: 01/20/19 22:35 Dose: 1 mg Documented by: [id number] Admin: 01/20/19 07:20 Dose: 1 mg Documented by: [id number] Admin: 01/19/19 03:49 Dose: 1 mg Documented by: [id number] Magnesium Oxide (Mag-Ox) 400 mg PO BID [facility] Stop: 02/18/19 12:29 Last Admin: 01/21/19 08:34 Dose: 400 mg Documented by: [id number] Admin: 01/20/19 20:30 Dose: 400 mg Documented by: [id number] Admin: 01/20/19 07:21 Dose: 400 mg Documented by: [id number] Admin: 01/19/19 20:41 Dose: 400 mg Documented by: [id number] Admin: 01/19/19 13:04 Dose: 400 mg Documented by: [id number] Morphine Sulfate (Morphine Sulfate) 2 mg IV NOW STA Stop: 01/16/19 22:17 Last Admin: 01/16/19 22:49 Dose: 2 mg Documented by: [id number] Ondansetron HCl (Zofran) 4 mg IV NOW STA Stop: 01/16/19 22:17 Last Admin: 01/16/19 22:49 Dose: 4 mg Documented by: [id number] Ondansetron HCl (Zofran) 4 mg IV NOW STA Stop: 01/17/19 00:40 Last Admin: 01/17/19 00:44 Dose: 4 mg Documented by: [id number] Ondansetron HCl (Zofran) 4 mg IV Q6H PRN PRN Reason: NAUSEA/VOMITING Stop: 02/16/19 02:35 Last Admin: 01/18/19 10:08 Dose: 4 mg Documented by: [id number] Admin: 01/17/19 16:12 Dose: 4 mg Documented by: [id number] Admin: 01/17/19 07:41 Dose: 4 mg Documented by: [id number] Pantoprazole Sodium (Protonix) 40 mg PO QAM MOSES Stop: 02/16/19 17:14 Last Admin: 01/21/19 08:34 Dose: 40 mg Documented by: [id number] Admin: 01/20/19 07:20 Dose: 40 mg Documented by: [id number] Admin: 01/19/19 08:06 Dose: 40 mg Documented by: [id number] Admin: 01/18/19 08:39 Dose: 40 mg Documented by: [id number] Admin: 01/17/19 18:18 Dose: 40 mg Documented by: [id number] Potassium Chloride (Klor-Con Pwd) 20 meq PO BID MOSES Stop: 02/17/19 20:59 Last Admin: 01/19/19 08:08 Dose: Not Given Documented by: [id number] Admin: 01/18/19 20:25 Dose: 20 meq Documented by: [id number] Potassium Chloride (Klor-Con M20) 20 meq PO BID MOSES Stop: 02/18/19 08:59 Last Admin: 01/19/19 09:45 Dose: 20 meq Documented by: [id number] Sertraline HCl (Zoloft) 200 mg PO DAILY [facility]ES Stop: 02/16/19 08:59 Last Admin: 01/21/19 08:34 Dose: 200 mg Documented by: [id number] Admin: 01/20/19 07:20 Dose: 200 mg Documented by: [id number] Admin: 01/19/19 08:07 Dose: 200 mg Documented by: [id number] Admin: 01/18/19 08:39 Dose: 200 mg Documented by: [id number] Admin: 01/17/19 10:31 Dose: 200 mg Documented by: [id number] Tramadol HCl (Ultram) Confirm Administered Dose 50 mg .ROUTE .STK-MED ONE Stop: 01/20/19 00:21 Last Admin: 01/20/19 00:21 Dose: 50 mg Documented by: [id number] Discharge Plan Visit Data *Final* Discharge Date/Time: 01/17/19 02:06 Chief Complaint: Diarrhea Stated Complaint: DIARRHEA ED Provider: Rubén Navarro ED Midlevel Provider: Latrell Faye Discharge Problem: Generalized weakness, Diarrhea, Hypokalemia, Hypomagnesemia, Transaminitis Patient Disposition: Admitted As Inpatient Discharge Instructions Interventions: ED Discharge Assessment Last Done: 01/17/19 02:06 Discharge Problem: Diarrhea Qualifiers: Diarrhea type: unspecified type Qualified Code(s): R19.7 - Diarrhea, unspecified
== END 2019-01-21 16:15 | disposition home or self-care (01) | DRG 392 ==
LOC: ED 21:33 → SUATTDRO 01-17 01:50 → 2S 01-17 01:50 → 4E 01-18 18:30

== ENCOUNTER 2019-09-23 06:48 | Observation (INO) ==
--- NOTE | 2019-09-17 13:05 | Anesthesiology Consultation ---
Date of Service September 17, 2019 Assessment & Plan Chart Review Chart Review: Pending: Refer to Additional Notes / Consult section (Patient needs a new EKG) History Surgery Operation Date: 09/23/19 09:40 Proposed Procedures p Laparoscopic Hiatal Hernia Repair with Toupet Fundoplication, - Abdullahi Abdullahi DO s Intra-Op Esophagogastroduodenoscopy - Abdullahi Abdullahi DO Height/Weight Height: 5 ft 6 in Weight: 89.811 kg Allergies Allergy/AdvReac Type Severity Reaction Status Date / Time No Known Allergies Allergy Verified 09/16/19 15:17 Medications Home Medications Medication Instructions Recorded Confirmed Last Taken ergocalciferol (vitamin D2) 50,000 unit PO WK 01/16/19 09/16/19 07/27/19 ibuprofen 200 mg PO Q6H PRN 05/20/19 09/16/19 07/27/19 gabapentin 400 mg capsule 400 mg PO BID #180 cap 07/08/19 09/16/19 07/27/19 atorvastatin 20 mg tablet 20 mg PO QPM #90 tab 07/13/19 09/16/19 07/27/19 calcium carbonate [Calcium 600] 600 mg PO QAM 07/26/19 09/16/19 07/27/19 multivitamin 1 tab PO QAM 07/26/19 09/16/19 07/27/19 sertraline [Zoloft] 200 mg PO QAM 07/26/19 09/16/19 07/28/19 hydroxyzine pamoate 50 mg capsule 50 mg PO TID PRN #90 cap 08/16/19 09/16/19 Unknown naltrexone microspheres 380 mg 380 mg IM MONTHLY #1 ea 09/14/19 09/16/19 Unknown intramuscular suspension,extended release pantoprazole 40 mg PO QAM 09/16/19 09/16/19 Unknown Past Medical History Medical History Anxiety (Chronic) Depression Hiatal hernia History of pancreatitis History of rectocele Hyperlipidemia Liver cirrhosis, alcoholic Osteoarthritis Post traumatic stress disorder Recovering alcoholic QUIT DRINKING 07/2019 SVT (supraventricular tachycardia) (Resolved) 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, 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 Past Family History Family History Mother Coronary heart disease Myocardial infarction Breast cancer Family history of diabetes mellitus Sister Family history of reaction to anesthesia nausea/vomiting Father Ulcerative colitis Past Surgical History Surgical History H/O: hysterectomy (Resolved) History of bilateral tubal ligation History of bladder suspension procedure x2 History of colonoscopy with polypectomy History of esophagogastroduodenoscopy (EGD) 07/28/2019 [facility] History of mandibular surgery "to pull lower jaw out"--hardware in place History of rectal surgery History of removal of cyst inside right ear History of tonsillectomy and adenoidectomy History of wisdom tooth extraction Social History Smoking Status: Never smoker Do You Dip or Chew Tobacco: No Hx Alcohol Use: Yes (quit Jul 18, 2019) Alcohol type: beer, wine and hard liquor alcohol intake frequency: 3 or more drinks per day Alcohol Intake Frequency Comment: WAS DRINKING 12 PACK BEER A DAY Hx Substance Use: No substance use type: does not use Testing Laboratory Results Laboratory Tests 09/14/19 09/14/19 11:15 11:15 WBC 6.10 Hgb 13.1 Plt Count 163 Sodium 139 Potassium 3.8 Chloride 106 Carbon Dioxide 28 BUN 13 Creatinine 0.80 Glucose 98 Electrocardiogram Date: 01/16/19 Possible Sinus tachycardia, rate 159 bpm Septal infarct , age undetermined Abnormal ECG When compared with ECG of 29-AUG-2016 12:03, Septal infarct is now Present Nonspecific T wave abnormality now evident in Lateral leads Confirmed by Gonzalez Ibrahim ([id number]) on 01/17/2019 10:53:51 PM
[~2019-09-23 06:48] MED LIST changes: +CEFAZOLIN 2000MG 2,000 MG/15 ML SYR IV SCH; +LR 15ML/HR IV SCH; -MULT-589 PO; -NRN400 PO; -POTA-65 PO; -THM100 PO; -ZLF/100 PO
[2019-09-23] MEDS ORDERED: ePHEDrine sulfate 50 MG/ML AMP IV PRN (07:46)
[2019-09-23] MEDS ORDERED: ATROPINE SULFATE 0.1 MG/ML 10ML SYR IV PRN (07:46)
[2019-09-23] MEDS ORDERED: ONDANSETRON INJ 2 MG/ML 2 ML VIAL IV PRN ×2 (07:46→12:56)
[2019-09-23] MEDS ORDERED: SCOPOLAMINE 1.5 MG TDSY TD ONE (07:47)
[2019-09-23] MEDS ORDERED: SCOPOLAMINE 1.5 MG TDSY ONE (07:51)
--- NOTE | 2019-09-23 08:21 | History & Physical Bridge Note ---
Date of Service September 23, 2019 History & Physical Bridge Note I have examined the patient, reviewed the History & Physical and in the interval since the performance of the History & Physical I have noted the following changes of clinical significance: no changes noted
[2019-09-23] MEDS ORDERED: MIDAZOLAM HCL 1 MG/ML 2ML VIAL ONE (08:32)
[2019-09-23] MEDS ORDERED: ONDANSETRON INJ 2 MG/ML 2 ML VIAL ONE ×2 (08:32→09:49)
[2019-09-23] MEDS ORDERED: LIDOCAINE HCL 2% 2 ML VIAL/AMP(20MG/ML) INFIL ONE (08:32)
[2019-09-23] MEDS ORDERED: fentaNYL citrate 100 MCG/2 ML VIAL ONE ×4 (08:32→11:12)
[2019-09-23] MEDS ORDERED: PROPOFOL IV EMULSION 10 MG/ML 20 ML VIAL IV ONE (08:32)
[2019-09-23] MEDS ORDERED: BUPIVACAINE/EPINEPHRINE 0.5% MPF 1:200,000 10 ML VIAL ONE (08:41)
[2019-09-23] MEDS ORDERED: ROCURONIUM BROMIDE 10 MG/ML 5 ML VIAL ONE (09:49)
[2019-09-23] MEDS ORDERED: DEXAMETHASONE SOD INJ 4 MG/ML VIAL ONE (09:49)
[2019-09-23] MEDS ORDERED: ESMOLOL HCL INJ 10 MG/ML 10ML VIAL IV ONE (10:05)
[2019-09-23] MEDS ORDERED: SUCCINYLCHOLINE CHLORIDE 20 MG/ML 10 ML VIAL ONE (10:11)
[2019-09-23] MEDS ORDERED: METOPROLOL TARTRATE 1 MG/ML VIAL IV ONE (10:49)
[2019-09-23] MEDS ORDERED: GLYCOPYRROLATE 0.2 MG/ML VIAL ONE (11:00)
--- NOTE | 2019-09-23 11:23 | Operative Report ---
PG Post Operative Report Pre & Post Diagnosis Operation Date: 09/23/19 08:30 Pre-Op Diagnosis: Hiatal Hernia, GERD Post-Op Diagnosis: Hiatal Hernia, GERD I identified the patient and participated in the time-out.: Yes Procedure Operation Date: 09/23/19 08:30 Actual Procedures p Laparoscopic Hiatal Hernia Repair with Toupet ( 270) Fundoplication(Not Ap plicable); posterior gastropexy - Abdullahi Abdullahi DO Surgeon Abdullahi Abdullahi DO Field Applications Specialist juan Xiao Estimated Blood Loss 50 Findings Consistent with Post-Op Diagnosis Specimens none Description of Procedure After informed consent was obtained the patient was taken to the operating room and placed in supine position. After successful intubation the patient was placed in a supine position with arms extended. The entire abdomen was sterilely prepped and draped in usual fashion. I began with supraumbilical incision with 11 blade scalpel and carried down through the soft tissues using cautery. The anterior rectus fascia was opened using cautery and two #0 Vicryl stay sutures were placed. Peritoneum was elevated using hemostats incised under direct vision using a Metzenbaum scissor. A finger sweep was performed and a 12 mm Carrero trocar was placed. The abdomen was insufflated to 20 mmHg. Laparoscope was inserted and the abdomen examined in 360 degrees. A left upper quadrant 12 mm trocar, a right upper quadrant 12 mm trocar ,right flank 5 mm trocar and left flank 5 mm trocar were all placed under direct vision. The patient had a nasogastric tube and the stomach decompressed. This would be exchanged for a 50 [place] bougie by anesthesia at the beginning of the procedure. The patient was placed in reverse Trendelenburg position and slightl y air planed towards the right. A liver retractor attached to the table was used throughout the case to elevate the left lobe of the liver. Once we elevated the left lobe of liver there was a moderate to large sized hiatal hernia with some gastric incarceration. The stomach was easily reduced with graspers. I began by using traction and harmonic scalpel to take down the hernia sac in 360 degrees. It was a very large/redundant hernia sac. After we did this we then took down the top 4- 5 short gastric vessels again using the harmonic scalpel. Once we had the hernia sac completely divided and the short gastrics divided the stomach laid naturally within the abdominal cavity with no tension on it. I began by closing the hiatal hernia posteriorly with 0 Surgidac with the Endo Stitch device. Once it was closed posteriorly I then made a window in the retrogastric space. Next I closed the hernia defect anteriorly again using 0 Surgidac with the Endo Stitch device. Once the hernia was completely closed I then used a reticulating grasper to go under the stomach and grasped a stitch that was previously placed on the fundus of the stomach. I was able to easily pull the fundus of the stomach through this retrogastric window. I was able to easily perform a shoeshine test. Once I did this I was then able to perform a posterior gastropexy by securing the undersurface of the body of the stomach to the right carole of the diaphragm again using 0 Surgidac. Once this was done I then completed the 270 degree wrap by securing the fundus of the stomach which was on the medial side of the stomach now to the pre-esophageal fat pad as well as the anterior portion of the esophagus itself. In similar fashion I secured the fundoplication laterally by wrapping some of the lateral portion of the body the stomach again to the pre-esophageal fat pad and esophagus itself. Thus we created a low tension 270 degree wrap. Prior to completing the wrap the bougie was removed easily without difficulty. There was adequate hemostasis. No other abnormalities were identified. The patient's liver itself looked healthy and I do not believe warranted biopsy at this time. All the trochars were then removed and the abdomen desufflated. The fascia of the camera port was closed using 0 Vicryl in a [id number] fashion. All the wounds were irrigated and closed using 4-0 Monocryl. Marcaine was injected around them for postoperative analgesia and skin glue used as a dressing. The patient was awakened extubated and transferred recovery in stable condition. Physician therapy administrative assistant assisted throughout the entire case. She will prep the patient. She helped with running the camera and retraction throughout my dissection as well as with wound closure and dressing placement. I attest to the content of the Intraoperative Record and any orders documented therein. Any exceptions are noted below.
[2019-09-23] MEDS: fentaNYL citrate 100 MCG/2 ML VIAL IV PRN ×4 (11:26→11:41)
[2019-09-23] MEDS: HYDROmorphone INJ 1 MG/ML SYRINGE IV PRN ×5 (11:42→12:07)
--- NOTE | 2019-09-23 12:33 | Anesthesiology Progress Note ---
Date of Service September 23, 2019 Anesthesia Post Procedure Vital Signs Vital Signs: Temp Pulse Pulse Resp BP BP Pulse Ox 09/23/19 12:20 36.6 C 95 H 16 139/93 94 09/23/19 12:10 36.6 C 94 H 16 138/89 95 09/23/19 12:00 87 16 126/97 94 09/23/19 11:50 94 H 16 135/97 95 09/23/19 11:40 95 H 16 124/83 95 09/23/19 11:30 97 H 16 122/78 94 09/23/19 11:20 36.7 C 104 H 16 113/72 97 09/23/19 07:23 36.6 C 90 20 121/77 97 Transfer of Care Handoff Completed per policy Notes Mental Status: alert / awake / arousable and participated in evaluation Patient Amnestic to Procedure: Yes Nausea / Vomiting: adequately controlled Pain: adequately controlled Airway Patency, RR, SpO2: stable & adequate BP & HR: stable & adequate Hydration State: stable & adequate Anesthetic Complications: no major complications apparent and Pt Satisfied with anesthetic care
[2019-09-23] MEDS ORDERED: HYDROCODONE/ACETAMOPHEN 5/325MG TAB PO PRN (12:56)
[2019-09-23] MEDS ORDERED: MoRPHine SULFATE 2 MG/ML CARP IV PRN (13:14)
[2019-09-23] MEDS ORDERED: MoRPHine SULFATE 4 MG/ML 1 ML CARP\\VIAL IV PRN (13:14)
[2019-09-23] MEDS: LACTATED RINGER'S 1,000 ML IV SCH ×2 (13:44→23:23)
[2019-09-23] MEDS ORDERED: INFLUENZA VIRUS QUAD VACCINE 0.5 ML SYR IM ONE (14:00)
[2019-09-23] MEDS ORDERED: INFLUENZA ADMINISTRATION CHARGE ONE (14:00)
[2019-09-23] MEDS: CHECK SCOPOLAMINE PATCH PLACEMENT SCH (15:14)
[2019-09-23] MEDS: HYDROCODONE/ACETAMOPHEN 5/325MG TAB PO PRN ×2 (15:16→20:07)
[2019-09-23] MEDS ORDERED: ATORVASTATIN 20 MG TAB PO SCH (21:00)
[2019-09-23] MEDS: GABAPENTIN 400 MG CAP PO SCH (21:22)
[2019-09-24] MEDS: CHECK SCOPOLAMINE PATCH PLACEMENT SCH
[2019-09-24 05:25] LABS: Basophils # (auto) 0.01 K/uL (0-0.2); Basophils % (auto) 0.1 %; Eosinophils # (auto) 0.21 K/uL (0-0.5); Eosinophils % (auto) 2.7 %; Hematocrit (blood only) 32.5 % (37-47); Hemoglobin 10.5 g/dL (12.0-16.0); Immature Granulocytes # (auto) 0.01 K/uL (0.00-0.02); Immature Granulocytes % (auto) 0.1 %; Lymphocytes # (auto) 2.43 K/uL (1.2-3.4); Mean Corpuscular Hemoglobin 30.3 pg (25-34); Mean Corpuscular Hgb Conc 32.3 g/dL (32-36); Mean Corpuscular Volume 93.7 fL (80-100); Mean Platelet Volume 10.3 fL (7.4-10.4); Monocytes # (auto) 0.62 K/uL (0.11-0.59); Monocytes % (auto) 7.9 %; Neutrophils # (auto) 4.55 K/uL (1.4-6.5); Neutrophils % (auto) 58.2 %; Platelet Count 139 K/uL (130-400); RDW Coefficient of Variation 13.6 % (11.5-14.5); RDW Standard Deviation 46.2 fL (36.4-46.3); Red Blood Count 3.47 M/uL (4.2-5.4); White Blood Count 7.83 K/uL (4.8-10.8)
[2019-09-24 05:39] LABS: BUN Creatinine Ratio 17.4 (10-20); Calcium 8.8 mg/dl (8.5-10.1); Creatinine Clr Calc Pharmacy 150.9 ml/min; Est GFR (African American) 126.5; Est GFR (Non-African American) 109.2; Potassium 3.4 mmol/L (3.5-5.1)
[2019-09-24] MEDS: HYDROCODONE/ACETAMOPHEN 5/325MG TAB PO PRN ×2 (06:20→13:16)
--- NOTE | 2019-09-24 07:01 | Surgery Progress Note ---
Date of Service September 24, 2019 Assessment & Plan (1) Hiatal hernia: s/p repair of HH and fundoplication POD 1 doing as expected ambuate today and drink liquids. will re-eval around lunch time for possible d/c Subjective pod 1. doing ok/as expected. surgical pain but manageable. tolerating liquids. no n/v. Physical Exam Physical Exam: alert. nad abd: soft. tender. Results & Data Vital Signs (Past 12 Hours) Vital Signs Temp Pulse Resp BP Pulse Ox 09/24/19 03:36 36.8 C 96 H 16 139/84 92 09/23/19 23:10 37.0 C 103 H 16 128/80 92 PG Care Time/CCT Total # of Minutes Spent Total Time Spent with Patient: Total time spent is greater than 50% in coordination of care (as documented) at patient's floor/unit and/or counseling patient: Coding Level of Care Code None Diagnoses Hiatal hernia K44.9
--- NOTE | 2019-09-24 08:02 | Anesthesiology Progress Note ---
Date of Service September 24, 2019 Anesthesia Post Procedure Vital Signs Vital Signs: Temp Pulse Pulse Resp BP Pulse Ox 09/24/19 07:40 36.6 C 94 H 16 116/76 91 09/24/19 03:36 36.8 C 96 H 16 139/84 92 09/23/19 23:10 37.0 C 103 H 16 128/80 92 09/23/19 15:40 36.9 C 98 H 16 149/84 H 96 09/23/19 14:46 36.6 C 88 18 143/90 H 96 09/23/19 13:39 36.6 C 96 H 16 152/102 H 96 09/23/19 13:10 93 H 16 133/87 94 09/23/19 12:56 37 C 101 H 17 127/84 96 09/23/19 12:30 36.6 C 95 H 16 137/91 94 09/23/19 12:20 36.6 C 95 H 16 139/93 94 09/23/19 12:10 36.6 C 94 H 16 138/89 95 09/23/19 12:00 87 16 126/97 94 09/23/19 11:50 94 H 16 135/97 95 09/23/19 11:40 95 H 16 124/83 95 09/23/19 11:30 97 H 16 122/78 94 09/23/19 11:20 36.7 C 104 H 16 113/72 97 Pain Intensity Abdomen: Pain Intensity: 6 Notes Mental Status: alert / awake / arousable and participated in evaluation Patient Amnestic to Procedure: Yes Nausea / Vomiting: adequately controlled Pain: adequately controlled Airway Patency, RR, SpO2: stable & adequate BP & HR: stable & adequate Hydration State: stable & adequate Anesthetic Complications: no major complications apparent and Pt Satisfied with anesthetic care
[2019-09-24] MEDS: GABAPENTIN 400 MG CAP PO SCH (08:40)
[2019-09-24] MEDS ORDERED: SERTRALINE HCL 100 MG TABLET PO SCH (09:00)
[2019-09-24] MEDS ORDERED: PANTOprazole 40 MG TAB PO SCH (09:00)
--- NOTE | 2019-09-28 15:30 | Discharge Summary ---
Date of Service September 28, 2019 Principal Diagnosis Hiatal Hernia s/p hiatal hernia repair with toupet fundoplication Discharge Exam awake/alert Constitutional well developed and well nourished; no acute distress Respiratory normal respiratory effort Gastrointestinal (Abdomen) Inspection/Auscultation: + abdominal surgical incision (clean and intact, covered with dermabond) Percussion/Palpation: abdomen soft Discharge Data Allergies Allergy/AdvReac Type Severity Reaction Status Date / Time azithromycin Allergy Unknown Verified 09/23/19 13:12 Procedures Performed Operation Date: 09/23/19 08:30 Actual Procedures p Laparoscopic Hiatal Hernia Repair with Toupet Fundoplication(Not Applicable) - Abdullahi Abdullahi, DO Hospital Course (1) Hiatal hernia: This is a 54y F who underwent a scheduled laparoscopic hiatal hernia repair with toupet fundoplication with Dr. Abdullahi on 09/23/19. The patient tolerated the procedure well, see op note for full details. The patient recovered in the PACU and was transferred to the nursing floor for overnight observation. Post operatively the patient's pain was controlled with prn medication, she was ambulating independently, and voiding spontaneously. Diet was advanced from clears to full liquids without issue. On POD#1 (09/24) the patient was deemed stable for discharge to home. She was tolerating full liquids, pain controlled, and incisions healing. She was instructed to follow up in clinic within 1 week and to continue on a liquid soft diet until her follow up. Total Time Total Time Spent Total Time Spent (In Minutes): 15 Discharge Plan Discharge Items Patient Disposition: Home - Self-Care Reason For Visit: Hiatal Hernia, GERD Discharge Diagnosis: laparoscopic hiatal hernia repair Activity: Per Instructions section Lifting: No more than 10 pounds Bathing Comment: may shower. no soaking in tubs Exercise/Sports: Wait until after follow-up appointment Driving/Machine Use: do not resume driving while taking narcotics for pain Non-emergency contact: Surgeon Call non-emergency contact if: you have any medication questions, your symptoms worsen, your pain is not controlled, your pain is worsening, your pain is unusual for you, you have a fever, your temperature is above 101.5, your wound has increased redness, your wound has increased drainage and your wound pain has increased Follow-up/Referrals: Gerardo White III, MD [Primary Care Provider] - Abdullahi Abdullahi, DO [Surgeon] - (Please call to schedule follow up in clin ic within 1 week, if you do not already have a scheduled appointment.) Diet: Full liquid Diet Comment: Please continue a liquid diet as Dr. Abdullahi previously discussed with you Addtl Attending Provider Instructions: Please continue a liquid diet as Dr. Abdullahi previously discussed with you Pending Studies at Discharge: No Stand-Alone Forms: My [facility], Opioid Pain Management Medications and DC Order Prescriptions: New ondansetron 4 mg tablet,disintegrating 4 mg PO Q8H PRN (Reason: nausea and vomiting) Qty: 15 RF: 0 hydrocodone-acetaminophen [[place]] 5-325 mg tablet 1 - 2 tab PO .every 4-6 hours PRN (Reason: pain, for initial therapy. Max 8 per day) Qty: 15 RF: 0 Continued gabapentin [Neurontin] 400 mg capsule 400 mg PO BID Qty: 180 RF: 3 atorvastatin 20 mg tablet 20 mg PO QPM Qty: 90 RF: 3 hydroxyzine pamoate [Vistaril] 50 mg capsule 50 mg PO TID PRN (Reason: anxiety) Qty: 90 RF: 11 naltrexone microspheres 380 mg suspension,extended rel recon 380 mg IM MONTHLY Qty: 1 RF: 0 ergocalciferol (vitamin D2) 50,000 unit capsule 50,000 unit PO WK RF: 0 ibuprofen 200 mg Tablet 200 mg PO Q6H PRN (Reason: Pain) RF: 0 sertraline [Zoloft] 100 mg tablet 200 mg PO QAM RF: 0 multivitamin Tablet 1 tab PO QAM RF: 0 calcium carbonate [Calcium 600] 600 mg calcium (1,500 mg) Tablet 600 mg PO QAM RF: 0 pantoprazole 40 mg tablet,delayed release (DR/EC) 40 mg PO QAM RF: 0 Discharge Orders: Discharge Order (Routine); Ordered 09/24/19 Ordered By: Serena Yusuf/Other Patient Handouts: Surgery Prevent DVT After Admission Data Admit Date/Time: 09/23/19 11:19 Attending Provider: Abdullahi Abdullahi Admit Provider: Abdullahi Abdullahi Primary Care Provider: Gerardo White III Other Interventions: Discharge Summary Assessment (RN) Last Done: 09/24/19 12:36 DC Date/Time DO NOT enter until pt leaves facility: 09/24/19 14:50 Coding Level of Care Code D/C Day Management <30 mins Diagnoses Hiatal hernia K44.9
== END 2019-09-24 14:50 | disposition home or self-care (01) ==
LOC: ASU 06:48 → 3N 06:48